=== PATIENT | female | born 1950 | race American Indian/Alaskan Native ===

== ENCOUNTER 2016-08-19 23:53 | Emergency (ER) | payer MEDICARE ==
[2016-08-20 00:35] VITALS: BP 157/72
[2016-08-20 01:28] LABS: Basophils % (Auto) 0.8 % (0.0-1.8); Eosinophils % (Auto) 1.6 % (0.0-4.3); Hemoglobin 11.6 gm/dl (10.1-14.3); Mean Corpuscular HGB Conc 32 % (30-34); Mean Corpuscular Hemoglobin 29 pg (28-32); Mean Corpuscular Volume 90 fl (79-97); Platelet Count 340 K/mm3 (140-440); Red Cell Distribution Width 13.8 % (13.2-15.2); White Blood Count 6.2 K/mm3 (4.5-11.0)
[2016-08-20 01:36] LABS: Blood Urea Nitrogen 10 mg/dL (7-17); Calcium 9.5 mg/dL (8.4-10.2); Carbon Dioxide 24 mmol/L (22-30); Chloride 99.6 mmol/L (98-107); Glucose 175 mg/dL (65-100); Potassium 3.8 mmol/L (3.6-5.0); Sodium 139 mmol/L (137-145)
[2016-08-20 01:49] LABS: Anion Gap 19 mmol/L
--- NOTE | 2016-08-21 08:50 | ED Elopement Review ---
ED Pt Elopement review - Results review Lab results: Laboratory Tests 08/20/16 08/20/16 08/20/16 00:48 00:48 00:48 WBC 6.2 RBC 4.00 Hgb 11.6 Hct 36.0 MCV 90 MCH 29 MCHC 32 RDW 13.8 Plt Count 340 Lymph % (Auto) 36.0 H [place] % (Auto) 9.6 H Eos % (Auto) 1.6 Baso % (Auto) 0.8 Lymph # 2.2 [place] # 0.6 Eos # 0.1 Baso # 0.0 Seg Neutrophils % 52.0 Seg Neutrophils # 3.2 Sodium 139 Potassium 3.8 Chloride 99.6 Carbon Dioxide 24 Anion Gap 19 BUN 10 Creatinine 1.0 Estimated GFR > 60 BUN/Creatinine Ratio 10.00 Glucose 175 H Calcium 9.5 Plasma/Serum Alcohol < 0.01 - Call Back decision Pt Call Back Decision: No action required
== END 2016-08-20 03:20 | disposition left against medical advice (07) ==
LOC: ED 23:53 → EEVIPCON 23:53 → ED 08-20 03:20
DX: Z00.8 Encounter for other general examination (principal); Z53.21 Procedure and treatment not carried out due to patient leaving prior to being seen by health care provider
CPT/HCPCS: 36415; 80048; 85025; G0480; 80320

== ENCOUNTER 2016-09-04 14:04 | Emergency (ER) | payer MEDICARE ==
[2016-09-04 14:39] VITALS: BP 133/83
[2016-09-04] MEDS ORDERED: MOTRIN PO ONE (22:51)
--- NOTE | 2016-09-04 22:55 | Emergency Department Report ---
HPI - General Chief Complaint: Laceration/Recheck/Suture Time Seen by Provider: 09/04/16 22:41 - HPI HPI: Patient here reports that she got bit by a dog 3 years ago and acid from the dog is still hurting her legs. She said her pain is 4 out of 10 [address] Denies any numbness or tingling. have multiple plastic bag and said she is looking for mcc. ED Past Medical Hx - Past Medical History Previous Medical History?: Yes Hx Hypertension: Yes Hx CVA: No Hx Heart Attack/AMI: Yes (NON-STEMI 2002) Hx Congestive Heart Failure: No Hx Diabetes: No Hx Deep Vein Thrombosis: No Hx Pulmonary Embolism: No Hx GERD: Yes Hx Liver Disease: No Hx Renal Disease: No Hx Sickle Cell Disease: No Hx Arthritis: No Hx Headaches / Migraines: No Hx Seizures: No Hx Kidney Stones: No Hx Psychiatric Treatment: Yes (BIPOLAR) Hx Asthma: No Hx COPD: No Hx Tuberculosis: No Hx Dementia: No Hx HIV: No Additional medical history: Patient's 2008 Non_STEMI was diagnosed by elevated cardiac enzymes, but had a normal stress test. - Surgical History Past Surgical History?: No Hx Coronary Stent: No Hx Open Heart Surgery: No Hx Pacemaker: No Hx Internal Defibrillator: No Hx Cholecystectomy: No Hx Appendectomy: Yes Hx Breast Surgery: No - Family History Family history: CAD/NE, hypertension - Social History Smoking Status: Current Every Day Smoker Substance Use Type: None - Medications Home Medications: Home Medications Medication Instructions Recorded Confirmed Last Taken Type ALBUTEROL Inhaler [Proair] 1 puff IH Q4H PRN #1 inha 03/29/16 06/21/16 06/16/16 Rx Ibuprofen [Motrin 600 MG tab] 600 mg PO Q8H PRN #20 tablet 03/29/16 06/21/1601/28 Rx QUEtiapine [SEROquel] 800 mg PO QDAY #120 tablet 04/26/16 06/21/16 06/18/16 Rx Hydrocortisone [Anucort-HC SUPPOS] 25 mg RC BID #14 supp.rect 06/21/16 Unknown Rx Lisinopril [Zestril TAB] 10 mg PO QDAY 06/21/16 06/21/16 06/20/16 History Nitrofurantoin [place]/M-Cryst 100 mg PO Q12HR #14 capsule 06/21/16 Unknown Rx [Macrobid CAP] Quetiapine Fumarate [SEROquel XR] 800 mg PO QDAY #14 tab.er.24h 06/21/16 Unknown Rx Mineral Oil/Molly,White [Eucerin 120 gm TP BID #1 jar 09/04/16 Unknown Rx (Nf)] ED Review of Systems ROS: Stated complaint: DOG BITE Other details as noted in HPI Comment: All other systems reviewed and negative Constitutional: denies: chills, fever ENT: denies: ear pain, throat pain, congestion Respiratory: no symptoms reported Cardiovascular: denies: chest pain, palpitations, edema, syncope Gastrointestinal: denies: abdominal pain, nausea, vomiting, diarrhea Musculoskeletal: arthralgia. denies: back pain, joint swelling Skin: denies: rash Neurological: denies: headache, weakness, numbness, paresthesias, confusion, abnormal gait, vertigo Physical Exam - Physical Exam Vital Signs: Vital Signs 09/04/16 14:36 Temperature 98 F Pulse Rate 78 Respiratory 18 Rate Blood Pressure 133/83 O2 Sat by Pulse 96 Oximetry General: This is a 65-year-old patient that is nontoxic in appearance. Physical Exam: Head: Normocephalic atraumatic Mouth: Moist, no pharyngeal exudate or erythema. Uvula is midline and oral airway is patent. No gingival enlargement or dental tenderness. No facial swelling. No peritonsillar abscesses. Neck: Supple, no C-spine tenderness, no tracheal deviation. Nontender to palpate. no adenopathy Ears: Bilateral TMs pearly senior.bilateral EAC without any redness swelling or drainage Eyes: Bilateral pupils equal and reactive to light, bilateral EOM intact. Bilateral sclera and conjunctiva without injection. Normal accommodation Nose: Mucosa moist, normal mucosa .maxillary and frontal sinus non-tender to palpate. Lungs:clear to auscultate bilaterally no rhonchi wheezes or rales. Normal work of breathing extremity; No CCE. +2 pulses. No neurovascular compromise. Full range of motion to all extremities. 5/5 strenght in extremities Cardiovascular: S1-S2, regular rate rhythm. No murmurs. Skin:Dry skin. Some flaking to legs. No wounds noted. Psych: Normal mood and behavior ED Course Vital Signs 09/04/16 14:36 Temperature 98 F Pulse Rate 78 Respiratory 18 Rate Blood Pressure 133/83 O2 Sat by Pulse 96 Oximetry - Reevaluation(s) Reevaluation #1: 09/04/16 22:55 She received Motrin 800 mg in emergency room for arthralgia. ED Medical Decision Making - Medical Decision Making ED course: here reporting that she had dogbite from 3 years ago to both legs. He is concerned that she has acid to bilateral leg from dog bite. I discussed the patient that she does not have any open wounds on her legs and she has very dry skin. She was given Motrin 800 mg in emergency room and I will prescribe her anymore and for dry skin. Prescription given for Eucerin cream Critical care attestation.: If time is entered above; I have spent that time in minutes in the direct care of this critically ill patient, excluding procedure time. ED Disposition Clinical Impression: Xerosis of skin Arthralgia Qualifiers: Joint pain location: unspecified Qualified Code(s): M25.50 - Pain in unspecified joint Disposition: DISCHARGED TO HOME OR SELFCARE Is pt being admited?: No Does the pt Need Aspirin: No Condition: Stable Instructions: Arthralgia (ED), Lanolin (On the skin) Prescriptions: Mineral Oil/Molly,White [Eucerin (Nf)] 120 gm TP BID #1 jar Referrals: PRIMARY CARE, [Primary Care Provider] - 2-3 Days
== END 2016-09-04 23:01 | disposition home or self-care (01) ==
LOC: ED 14:04
DX: M79.605 Pain in left leg (principal); M79.604 Pain in right leg; L85.3 Xerosis cutis; I10 Essential (primary) hypertension; I25.2 Old myocardial infarction; K21.9 Gastro-esophageal reflux disease without esophagitis; F31.9 Bipolar disorder, unspecified; F17.200 Nicotine dependence, unspecified, uncomplicated
CPT/HCPCS: 99282

== ENCOUNTER 2016-09-26 00:52 | Emergency (ER) | payer MEDICARE ==
[2016-09-26 01:36] VITALS: BP 110/74
== END 2016-09-26 01:30 | disposition left against medical advice (07) ==
LOC: ED 00:52
DX: R07.89 Other chest pain (principal); M54.9 Dorsalgia, unspecified; Z53.21 Procedure and treatment not carried out due to patient leaving prior to being seen by health care provider

== ENCOUNTER 2018-03-23 21:11 | Emergency (ER) | payer MEDICARE ==
[2018-03-23 21:42] VITALS: BP 133/68
== END 2018-03-23 22:00 | disposition left against medical advice (07) ==
LOC: ED 21:11
DX: Z59.0 Homelessness (principal); Z53.21 Procedure and treatment not carried out due to patient leaving prior to being seen by health care provider

== ENCOUNTER 2018-10-19 07:48 | Emergency (ER) | payer MEDICARE ==
[2018-10-19 08:12] VITALS: BP 145/82
[2018-10-19] MEDS ORDERED: ASPIRIN PO ONE (08:14)
--- NOTE | 2018-10-19 08:24 | Emergency Department Report ---
ED Chest Pain HPI - General Chief Complaint: Chest Pain Stated Complaint: CHEST PAIN Time Seen by Provider: 10/19/18 08:07 Source: EMS Mode of arrival: Ambulatory Limitations: No Limitations - History of Present Illness Initial Comments: 67-year-old female presents to ED with complaint of chest pain since last night. Patient states pain is located in the epigastric region, sharp in nature, states it "moves all around." Patient reports vomiting last night. Denies shortness of breath. Patient has history of cocaine abuse, states has not used recently. Reports tobacco use. MD Complaint: chest pain -: Last night Onset: during rest Pain Location: epigastric Pain Radiation: other ("all over") Severity: moderate Severity scale (0 -10): 10 Quality: sharp Consistency: intermittent Improves With: nothing Worsens With: nothing re: nausea, vomting. denies: diaphoresis, dyspnea Other Symptoms: denies: cough, fever, leg swelling - Related Data Previous Rx's Medication Instructions Recorded Last Taken Type ALBUTEROL Inhaler (OR & NICU) 1 puff IH Q4H PRN #1 inha 05/26/18 Unknown Rx [ProAir HFA Inhaler] Acetaminophen [Acetaminophen TAB] 650 mg PO Q4H PRN #15 tablet 05/26/18 Unknown Rx Lisinopril [Zestril TAB] 10 mg PO QDAY #30 tablet 05/26/18 Unknown Rx QUEtiapine [SEROquel] 400 mg PO BID 30 Days tablet 05/26/18 Unknown Rx Allergies Allergy/AdvReac Type Severity Reaction Status Date / Time No Known Allergies Allergy Verified 06/20/18 07:32 Heart Score - HEART Score History: Slightly suspicious EKG: Normal Age: > 65 Risk factors: 1-2 risk factors Troponin: < normal limit HEART Score: 3 ED Review of Systems ROS: Stated complaint: CHEST PAIN Other details as noted in HPI Comment: All other systems reviewed and negative Constitutional: denies: fever Respiratory: denies: cough, shortness of breath Cardiovascular: chest pain Gastrointestinal: nausea, vomiting ED Past Medical Hx - Past Medical History Hx Hypertension: Yes Hx CVA: No Hx Heart Attack/AMI: Yes (NON-STEMI 2002) Hx Congestive Heart Failure: No Hx Diabetes: No Hx Deep Vein Thrombosis: No Hx Pulmonary Embolism: No Hx GERD: Yes Hx Liver Disease: No Hx Renal Disease: No Hx Sickle Cell Disease: No Hx Arthritis: No Hx Headaches / Migraines: No Hx Seizures: No Hx Kidney Stones: No Hx Psychiatric Treatment: Yes (BIPOLAR) Hx Asthma: No Hx COPD: No Hx Tuberculosis: No Hx Dementia: No Hx HIV: No Additional medical history: Patient's 2008 Non_STEMI was diagnosed by elevated cardiac enzymes, but had a normal stress test. - Surgical History Hx Coronary Stent: No Hx Open Heart Surgery: No Hx Pacemaker: No Hx Internal Defibrillator: No Hx Cholecystectomy: No Hx Appendectomy: Yes Hx Breast Surgery: No - Social History Smoking Status: Current Some Day Smoker Substance Use Type: Cocaine - Medications Home Medications: Home Medications Medication Instructions Recorded Confirmed Last Taken Type ALBUTEROL Inhaler (OR & NICU) 1 puff IH Q4H PRN #1 inha 05/26/18 Unknown Rx [ProAir HFA Inhaler] Acetaminophen [Acetaminophen TAB] 650 mg PO Q4H PRN #15 tablet 05/26/18 Unknown Rx Lisinopril [Zestril TAB] 10 mg PO QDAY #30 tablet 05/26/18 Unknown Rx QUEtiapine [SEROquel] 400 mg PO BID 30 Days tablet 05/26/18 Unknown Rx ED Physical Exam - General Limitations: No Limitations General appearance: alert, in no apparent distress - Head Head exam: Present: atraumatic, normocephalic - Eye Eye exam: Present: normal appearance - ENT ENT exam: Present: mucous membranes moist - Neck Neck exam: Present: normal inspection - Respiratory Respiratory exam: Present: normal lung sounds bilaterally. Absent: respiratory distress - Cardiovascular Cardiovascular Exam: Present: regular rate, normal rhythm - GI/Abdominal GI/Abdominal exam: Present: soft. Absent: distended, tenderness - Extremities Exam Extremities exam: Absent: pedal edema, calf tenderness - Neurological Exam Neurological exam: Present: alert, oriented X3 - Psychiatric Psychiatric exam: Present: normal affect, normal mood - Skin Skin exam: Present: warm, dry, intact, normal color ED Course Vital Signs 10/19/18 10/19/18 08:11 08:12 Temperature 97.6 F 97.6 F Pulse Rate 74 74 Respiratory 16 16 Rate Blood Pressure 145/82 Blood Pressure 145/82 [Right] O2 Sat by Pulse 100 100 Oximetry ABRAHAM score - Abraham Score Age > 65: (0) No Aspirin use within the Past 7 Days: (0) No 3 or more CAD Risk Factors: (1) Yes 2 or more Angina events in past 24 hrs: (1) Yes Known CAD with more than 50% Stenosis: (0) No Elevated Cardiac Markers: (0) No ST Deviation Greater than 0.5mm: (0) No ABRAHAM Score: 2 ED Medical Decision Making - EKG Data -: EKG Interpreted by Me EKG shows normal: sinus rhythm, axis, intervals, QRS complexes, ST-T waves Rate: normal - EKG Data Interpretation: no acute changes - Radiology Data Radiology results: report reviewed, image reviewed - Medical Decision Making 67-year-old female presents to ED with report of chest pain since last night. EKG normal, chest x-ray normal. Vital signs are unremarkable. Patient is in no acute distress, laying in the stretcher asleep. Patient refusing labs. Informed patient needs to recheck blood work in order to evaluate her chest pain. Patient had a normal stress test in May 2018. Patient states she would rather go across the street to the doctor's office. Patient informed of risks of leaving AMA. Return precautions given. Pt left AMA. - Differential Diagnosis pancreatitis, gastritis, ACS Critical care attestation.: If time is entered above; I have spent that time in minutes in the direct care of this critically ill patient, excluding procedure time. ED Disposition Clinical Impression: Chest pain Disposition: LEFT AGAINST MED ADVICE Is pt being admited?: No Condition: Stable Instructions: Chest Pain (ED) Referrals: [facility] [Provider Group] - 3-5 Days Time of Disposition: 09:07
--- NOTE | 2018-10-19 08:48 | XRay Report ---
AP CHEST: HISTORY: chest pain Compared to 05/25/18. AP view of the chest demonstrates a normal mediastinal and cardiac contour with clear lungs and normal bony and soft tissue structures. IMPRESSION: No acute cardiopulmonary process identified.
== END 2018-10-19 09:10 | disposition left against medical advice (07) ==
LOC: ED 07:48
DX: R07.89 Other chest pain (principal); R11.10 Vomiting, unspecified; I10 Essential (primary) hypertension; F14.90 Cocaine use, unspecified, uncomplicated; I25.2 Old myocardial infarction; K21.9 Gastro-esophageal reflux disease without esophagitis; F17.200 Nicotine dependence, unspecified, uncomplicated; Z90.49 Acquired absence of other specified parts of digestive tract
CPT/HCPCS: 71045; 93005; 93010; 99284

== ENCOUNTER 2019-02-05 01:19 | Emergency (ER) | payer MEDICARE ==
[2019-02-05] MEDS ORDERED: ASPIRIN PO ONE (01:27)
[2019-02-05 02:16] LABS: Basophils # (Auto) 0.1 K/mm3 (0.0-0.1); Basophils % (Auto) 0.7 % (0.0-1.8); Eosinophils # (Auto) 0.1 K/mm3 (0.0-0.4); Eosinophils % (Auto) 0.8 % (0.0-4.3); Hematocrit 35.3 % (30.3-42.9); Lymphocytes # (Auto) 1.9 K/mm3 (1.2-5.4); Lymphocytes % (Auto) 25.8 % (13.4-35.0); Mean Corpuscular HGB Conc 34 % (30-34); Mean Corpuscular Volume 90 fl (79-97); Monocytes # (Auto) 0.8 K/mm3 (0.0-0.8); Platelet Count 358 K/mm3 (140-440); Red Blood Count 3.94 M/mm3 (3.65-5.03); Red Cell Distribution Width 14.8 % (13.2-15.2)
--- NOTE | 2019-02-05 02:25 | XRay Report ---
PROCEDURE: XR CHEST 1V AP TECHNIQUE: Chest radiograph single view. HISTORY: Chest Pain COMPARISONS: None . FINDINGS: Heart: Normal. Mediastinum/Vessels: Normal. Lungs/Pleural space: Normal. Bony thorax: No acute osseous abnormality. Life support devices: None. IMPRESSION: No acute cardiopulmonary abnormality. This document is electronically signed by Alix Salazar DO., February 05 2019 02:22:37 AM ET
[2019-02-05 02:37] LABS: BUN/Creatinine Ratio 16; Blood Urea Nitrogen 26 mg/dL (7-17); Calcium 9.4 mg/dL (8.4-10.2); Hemolysis Index 2
[2019-02-05] MEDS ORDERED: ALUM-MAG HYDROX-SIMETH 200-200-20MG/5ML PO ONE (02:59)
[2019-02-05] MEDS ORDERED: LIDOCAINE VISCOUS 2% PO ONE (02:59)
--- NOTE | 2019-02-05 03:11 | Emergency Department Report ---
ED Chest Pain HPI - General Chief Complaint: Chest Pain Stated Complaint: CHEST PAIN Time Seen by Provider: 02/05/19 02:33 Source: patient Mode of arrival: Ambulatory Limitations: No Limitations - History of Present Illness Initial Comments: 68-year-old female with history of GERD, bipolar disorder, cocaine abuse presents to ED with complaint of chest pain. States pain is substernal, comes and goes. Feels like burning in her chest. Reports nausea. Patient denies shortness of breath. MD Complaint: chest pain -: days(s) (3) Onset: during rest Pain Location: substernal Pain Radiation: none Severity: mild Quality: other (burning) Consistency: intermittent Improves With: nothing Worsens With: nothing re: nausea. denies: vomting, dyspnea Other Symptoms: denies: fever, leg swelling - Related Data Previous Rx's Medication Instructions Recorded Last Taken Type ALBUTEROL Inhaler (OR & NICU) 1 puff IH Q4H PRN #1 inha 05/26/18 Unknown Rx [ProAir HFA Inhaler] Acetaminophen [Acetaminophen TAB] 650 mg PO Q4H PRN #15 tablet 05/26/18 Unknown Rx Lisinopril [Zestril TAB] 10 mg PO QDAY #30 tablet 05/26/18 Unknown Rx QUEtiapine [SEROquel] 400 mg PO BID 30 Days tablet 05/26/18 Unknown Rx Allergies Allergy/AdvReac Type Severity Reaction Status Date / Time No Known Allergies Allergy Verified 06/20/18 07:32 Heart Score - HEART Score History: Slightly suspicious EKG: Normal Age: > 65 Risk factors: No known risk factors Troponin: < normal limit HEART Score: 2 ED Review of Systems ROS: Stated complaint: CHEST PAIN Other details as noted in HPI Comment: All other systems reviewed and negative Constitutional: denies: chills, fever Respiratory: denies: shortness of breath Cardiovascular: chest pain Gastrointestinal: nausea. denies: vomiting Musculoskeletal: other (denies leg pain or swelling) ED Past Medical Hx - Past Medical History Previous Medical History?: Yes Hx Hypertension: Yes Hx CVA: No Hx Heart Attack/AMI: Yes (NON-STEMI 2002) Hx Congestive Heart Failure: No Hx Diabetes: No Hx Deep Vein Thrombosis: No Hx Pulmonary Embolism: No Hx GERD: Yes Hx Liver Disease: No Hx Renal Disease: No Hx Sickle Cell Disease: No Hx Arthritis: No Hx Headaches / Migraines: No Hx Seizures: No Hx Kidney Stones: No Hx Psychiatric Treatment: Yes (BIPOLAR) Hx Asthma: No Hx COPD: No Hx Tuberculosis: No Hx Dementia: No Hx HIV: No Additional medical history: Patient's 2008 Non_STEMI was diagnosed by elevated cardiac enzymes, but had a normal stress test. - Surgical History Past Surgical History?: Yes Hx Coronary Stent: No Hx Open Heart Surgery: No Hx Pacemaker: No Hx Internal Defibrillator: No Hx Cholecystectomy: No Hx Appendectomy: Yes Hx Breast Surgery: No - Social History Smoking Status: Never Smoker Substance Use Type: None - Medications Home Medications: Home Medications Medication Instructions Recorded Confirmed Last Taken Type ALBUTEROL Inhaler (OR & NICU) 1 puff IH Q4H PRN #1 inha 05/26/18 Unknown Rx [ProAir HFA Inhaler] Acetaminophen [Acetaminophen TAB] 650 mg PO Q4H PRN #15 tablet 05/26/18 Unknown Rx Lisinopril [Zestril TAB] 10 mg PO QDAY #30 tablet 05/26/18 Unknown Rx QUEtiapine [SEROquel] 400 mg PO BID 30 Days tablet 05/26/18 Unknown Rx ED Physical Exam - General Limitations: No Limitations General appearance: alert, in no apparent distress - Head Head exam: Present: atraumatic, normocephalic - Eye Eye exam: Present: normal appearance - ENT ENT exam: Present: mucous membranes moist - Neck Neck exam: Present: normal inspection - Respiratory Respiratory exam: Present: normal lung sounds bilaterally. Absent: respiratory distress - Cardiovascular Cardiovascular Exam: Present: regular rate, normal rhythm - GI/Abdominal GI/Abdominal exam: Present: soft. Absent: distended, tenderness - Extremities Exam Extremities exam: Absent: pedal edema, calf tenderness - Neurological Exam Neurological exam: Present: alert, oriented X3 - Psychiatric Psychiatric exam: Present: normal affect, normal mood, other (pt has disorganized thoughts, responding to internal stimuli). Absent: homicidal ideation, suicidal ideation - Skin Skin exam: Present: warm, dry, intact, normal color ED Course Vital Signs 02/05/19 02/05/19 02/05/19 02:42 02:46 03:00 Pulse Rate 85 84 88 Respiratory 23 18 16 Rate Blood Pressure 173/79 173/78 Blood Pressure 173/79 [Right] O2 Sat by Pulse 100 99 100 Oximetry 02/05/19 02/05/19 02/05/19 03:15 03:31 03:45 Pulse Rate 89 86 84 Respiratory 16 15 20 Rate Blood Pressure 173/79 173/79 173/78 Blood Pressure [Right] O2 Sat by Pulse 99 98 100 Oximetry 02/05/19 02/05/19 02/05/19 04:00 04:15 04:31 Pulse Rate 83 84 85 Respiratory 18 18 18 Rate Blood Pressure 199/76 173/78 173/78 Blood Pressure [Right] O2 Sat by Pulse 98 98 Oximetry 02/05/19 04:45 Pulse Rate Respiratory Rate Blood Pressure 173/78 Blood Pressure [Right] O2 Sat by Pulse 98 Oximetry ABRAHAM score - Abraham Score Age > 65: (0) No Aspirin use within the Past 7 Days: (0) No 3 or more CAD Risk Factors: (1) Yes 2 or more Angina events in past 24 hrs: (1) Yes Known CAD with more than 50% Stenosis: (0) No Elevated Cardiac Markers: (0) No ST Deviation Greater than 0.5mm: (0) No ABRAHAM Score: 2 ED Medical Decision Making - Lab Data Result diagrams: 02/05/19 01:52 02/05/19 01:52 - EKG Data -: EKG Interpreted by Ut EKG shows normal: sinus rhythm, axis, intervals, QRS complexes, ST-T waves Rate: normal - EKG Data Interpretation: no acute changes - Radiology Data Radiology results: report reviewed, image reviewed - Medical Decision Making 68 yo F presents to ED with complaint of chest pain. Reported burning in chest, hx of GERD. EKG and troponin normal. Pt had normal stress test last May. Upon entering the room, pt is apparently responding to internal stimuli. Difficult to keep pt on track with answering questions, thoughts are disorganized. Denies SI, HI. Has history of psychosis and bipolar disorder. Patient is medically clear. It does not seem that her chest pain, which has now resolved, is due to ACS. CXR is normal. Pt is medically clear for mental health evaluation. Will dispo per psych. - Differential Diagnosis ACS, GERD, pneumonia, bipolar Critical care attestation.: If time is entered above; I have spent that time in minutes in the direct care of this critically ill patient, excluding procedure time. ED Disposition Clinical Impression: Atypical chest pain, Bipolar disorder Disposition: Z-07 ELOPED Is pt being admited?: No Condition: Stable Instructions: Chest Pain (ED) Referrals: PRIMARY CARE, [Primary Care Provider] - 3-5 Days
[2019-02-05 05:09] VITALS: BP 173/78
[2019-02-05] MEDS ORDERED: HALDOL IM ONE (08:10)
[2019-02-05] MEDS ORDERED: HALDOL ONE (08:12)
== END 2019-02-05 08:40 | disposition left against medical advice (07) ==
LOC: ED 01:19 → EEVIPCON 01:19 → ED 08:40
DX: R07.89 Other chest pain (principal); F31.9 Bipolar disorder, unspecified; I10 Essential (primary) hypertension; I25.2 Old myocardial infarction; K21.9 Gastro-esophageal reflux disease without esophagitis; Z90.49 Acquired absence of other specified parts of digestive tract; Z79.899 Other long term (current) drug therapy
CPT/HCPCS: 36415; 71045; 80048; 84484; 85025; 93005; 93010; 96372; 99284; G0480; J1630; 80320

== ENCOUNTER 2019-05-24 01:46 | Emergency (ER) | payer MEDICARE ==
[2019-05-24] MEDS ORDERED: ACETAMINOPHEN 500 MG TAB PO ONE (03:16)
--- NOTE | 2019-05-24 03:44 | Emergency Department Report ---
ED Back Pain/Injury HPI - General Chief Complaint: Extremity Injury, Lower Stated Complaint: MED REFILL,FOOT AND BODY PAIN Source: patient Limitations: No Limitations - History of Present Illness Initial Comments: Patient is a 68-year-old -[place] female with a history of chronic depression and anxiety, schizophrenia who presents to the ED with complaint of acute onset persistent low back pain for the last 1 month because of persistent walking on the street. Patient states that she is homeless and is on her feet most of the time walking around. Patient denies fall, headache, chest pain, s hortness of breath, dysuria, urinary frequency and urgency, abdominal pain, fever, chills, numbness and tingling or weakness or lower extremities bilaterally, dizziness, cough, or headache. MD Complaint: back pain, other (Bilateral feet pain) -: Gradual, month(s) (1) Similar Symptoms Previously: Yes Place: street Radiation: none Severity: moderate Severity scale (0 -10): 5 Quality: sharp, aching Consistency: constant Improves With: none Worsens With: none Context: turning/twisting Associated Symptoms: denies other symptoms. denies: confusion, weakness, chest pain, numbness, difficulty walking, cough, difficulty urinating, diaphoresis, incontinence, fever/chills, constipation, headaches, abdominal pain, nausea/vomiting, seizure, shortness of breath, other - Related Data Previous Rx's Medication Instructions Recorded Last Taken Type ALBUTEROL Inhaler (OR & NICU) 1 puff IH Q4H PRN #1 inha 05/26/18 Unknown Rx [ProAir HFA Inhaler] Acetaminophen [Acetaminophen TAB] 650 mg PO Q4H PRN #15 tablet 05/26/18 Unknown Rx Lisinopril [Zestril TAB] 10 mg PO QDAY #30 tablet 05/26/18 Unknown Rx QUEtiapine [SEROquel] 400 mg PO BID 30 Days tablet 05/26/18 Unknown Rx Allergies Allergy/AdvReac Type Severity Reaction Status Date / Time No Known Allergies Allergy Verified 06/20/18 07:32 ED Review of Systems ROS: Stated complaint: MED REFILL,FOOT AND BODY PAIN Other details as noted in HPI Constitutional: denies: chills, fever Eyes: denies: eye pain, eye discharge, vision change ENT: denies: ear pain, throat pain Respiratory: denies: cough, shortness of breath, wheezing Cardiovascular: denies: chest pain, palpitations Endocrine: no symptoms reported Gastrointestinal: denies: abdominal pain, nausea, diarrhea Genitourinary: denies: urgency, dysuria, discharge Musculoskeletal: back pain, arthralgia, myalgia. denies: joint swelling Skin: denies: rash, lesions Neurological: denies: headache, weakness, paresthesias Psychiatric: denies: anxiety, depression Hematological/Lymphatic: denies: easy bleeding, easy bruising ED Past Medical Hx - Past Medical History Hx Hypertension: Yes Hx CVA: No Hx Heart Attack/AMI: Yes (NON-STEMI 2002) Hx Congestive Heart Failure: No Hx Diabetes: No Hx Deep Vein Thrombosis: No Hx Pulmonary Embolism: No Hx GERD: Yes Hx Liver Disease: No Hx Renal Disease: No Hx Sickle Cell Disease: No Hx Arthritis: No Hx Headaches / Migraines: No Hx Seizures: No Hx Kidney Stones: No Hx Psychiatric Treatment: Yes (BIPOLAR) Hx Asthma: No Hx COPD: No Hx Tuberculosis: No Hx Dementia: No Hx HIV: No Additional medical history: Patient's 2008 Non_STEMI was diagnosed by elevated cardiac enzymes, but had a normal stress test. - Surgical History Hx Coronary Stent: No Hx Open Heart Surgery: No Hx Pacemaker: No Hx Internal Defibrillator: No Hx Cholecystectomy: No Hx Appendectomy: Yes Hx Breast Surgery: No - Social History Smoking Status: Current Every Day Smoker Substance Use Type: Alcohol - Medications Home Medications: Home Medications Medication Instructions Recorded Confirmed Last Taken Type ALBUTEROL Inhaler (OR & NICU) 1 puff IH Q4H PRN #1 inha 05/26/18 Unknown Rx [ProAir HFA Inhaler] Acetaminophen [Acetaminophen TAB] 650 mg PO Q4H PRN #15 tablet 05/26/18 Unknown Rx Lisinopril [Zestril TAB] 10 mg PO QDAY #30 tablet 05/26/18 Unknown Rx QUEtiapine [SEROquel] 400 mg PO BID 30 Days tablet 05/26/18 Unknown Rx ED Physical Exam - General Limitations: No Limitations General appearance: alert, in no apparent distress - Head Head exam: Present: atraumatic, normocephalic - Eye Eye exam: Present: normal appearance, PERRL, EOMI Pupils: Present: normal accommodation - ENT ENT exam: Present: normal exam, normal orophraynx, mucous membranes moist, TM's normal bilaterally, normal external ear exam - Neck Neck exam: Present: normal inspection, full ROM - Respiratory Respiratory exam: Present: normal lung sounds bilaterally. Absent: respiratory distress, wheezes, rales, rhonchi, chest wall tenderness, accessory muscle use, decreased breath sounds - Cardiovascular Cardiovascular Exam: Present: regular rate, normal rhythm, normal heart sounds. Absent: systolic murmur, diastolic murmur, rubs, gallop - GI/Abdominal GI/Abdominal exam: Present: soft, normal bowel sounds. Absent: tenderness, hyperactive bowel sounds - Extremities Exam Extremities exam: Present: normal inspection, full ROM, normal capillary refill - Back Exam Back exam: Present: normal inspection, full ROM, tenderness (palpable mild lumbosacral musculoskeletal tenderness), muscle spasm, paraspinal tenderness - Neurological Exam Neurological exam: Present: alert, oriented X3, CN II-XII intact, normal gait, reflexes normal - Psychiatric Psychiatric exam: Present: normal affect, normal mood, anxious. Absent: manic, homicidal ideation, suicidal ideation - Skin Skin exam: Present: warm, dry, intact, normal color. Absent: rash ED Course Vital Signs 05/24/19 01:47 Temperature 97.4 F L Pulse Rate 63 Respiratory 18 Rate Blood Pressure 132/74 O2 Sat by Pulse 99 Oximetry - Reevaluation(s) Reevaluation #1: 05/24/19 03:45 This is a 68-year-old homeless -[place] female with a history of schizophrenia, anxiety and depression who presented to the ED with low back pain. In the ED, patient is alert and oriented 3 and is not in distress. Patient already has a prescription for Tylenol Extra Strength to be taken 2 tablets (1 g) every 6-8 hours as needed for pain, obtained from another hospital during her previous hospital visit. Patient is not homicidal or suicidal and is not hearing any voices at this time. Patient was treated for pain in the ED and discharged home and advised to follow-up with her psychiatrist and primary care physician as needed. 05/24/19 03:53 ED Medical Decision Making - Medical Decision Making This is a 68-year-old homeless -[place] female with a history of schizophrenia, anxiety and depression who presented to the ED with low back pain. In the ED, patient is alert and oriented 3 and is not in distress. Patient already has a prescription for Tylenol Extra Strength to be taken 2 tablets (1 g) every 6-8 hours as needed for pain, obtained from another hospital during her previous hospital visit. Patient is not homicidal or suicidal and is not hearing any voices at this time. Patient was treated for pain in the ED and discharged home and advised to follow-up with her psychiatrist and primary care physician as needed. - Differential Diagnosis muscle spasm; acute low back pain Critical care attestation.: If time is entered above; I have spent that time in minutes in the direct care of this critically ill patient, excluding procedure time. ED Disposition Clinical Impression: Spasm of muscle of lower back Acute low back pain Qualifiers: Back pain laterality: unspecified Sciatica presence: without sciatica Qualified Code(s): M54.5 - Low back pain Disposition: TO HOME OR SELFCARE Is pt being admited?: No Does the pt Need Aspirin: No Condition: Stable Instructions: Muscle Spasm (ED), Back Pain (ED) Additional Instructions: Take the previously prescribed medications. Follow up with your primary care physician in 7-10 days for reevaluation. Return to the ED immediately if symptoms get worse. Referrals: PRIMARY CARE [Primary Care Provider] - 3-5 Days Time of Disposition: 03:44 Print Language: GREENLANDIC
[2019-05-24 04:13] VITALS: BP 128/72
== END 2019-05-24 04:15 | disposition home or self-care (01) ==
LOC: ED 01:46
DX: M62.830 Muscle spasm of back (principal); M54.5 Low back pain; I10 Essential (primary) hypertension; I25.2 Old myocardial infarction; K21.9 Gastro-esophageal reflux disease without esophagitis; F31.9 Bipolar disorder, unspecified; F17.200 Nicotine dependence, unspecified, uncomplicated
CPT/HCPCS: 99282

== ENCOUNTER 2019-05-24 14:42 | Emergency (ER) | payer MEDICARE ==
--- NOTE | 2019-05-24 15:33 | Event Note ---
ED Screening Note Date of service: 05/24/19 Time: 15:30 ED Screening Note: 68 y/o female comes in reporting she want a refill her seroquel. Patient reports that she was seen at [facility] 3 days ago. This initial assessment/diagnostic orders/clinical plan/treatment(s) is/are subject to change based on patients health status, clinical progression and re- assessment by fellow clinical providers in the ED. Further treatment and workup at subsequent clinical providers discretion. Patient/guardian urged not to elope from the ED as their condition may be serious if not clinically assessed and managed. Initial orders include:
[2019-05-24 15:34] VITALS: BP 128/74
--- NOTE | 2019-05-24 15:47 | Emergency Department Report ---
ED Psych HPI - General Chief Complaint: Medical Clearance Stated Complaint: MEDICATION REFILL Time Seen by Provider: 05/24/19 15:30 Source: patient Mode of arrival: Ambulatory Limitations: No Limitations - History of Present Illness Initial Comments: Mrs. La is a 68-year-old female with history of bipolar disorder who requests refill of Seroquel. Her dose is 800 mg at nighttime. Her personal psychiatrist recently moved from [facility] to [place]. She is unable to get transportation to the area. She denies suicidal homicidal ideation. Denies hallucinations. She has no other concerns. MD Complaint: other (requests medication refill.) Associated Psychiatric Symptoms: none History of same: Yes Improves With: none Worsens With: none Context: other (needs medication refill) - Related Data Previous Rx's Medication Instructions Recorded Last Taken Type ALBUTEROL Inhaler (OR & NICU) 1 puff IH Q4H PRN #1 inha 05/26/18 Unknown Rx [ProAir HFA Inhaler] Acetaminophen [Acetaminophen TAB] 650 mg PO Q4H PRN #15 tablet 05/26/18 Unknown Rx Lisinopril [Zestril TAB] 10 mg PO QDAY #30 tablet 05/26/18 Unknown Rx QUEtiapine [SEROquel] 400 mg PO BID 30 Days tablet 05/26/18 Unknown Rx Quetiapine Fumarate [SEROquel] 400 mg PO BID 30 Days #60 tablet 05/24/19 Unknown Rx Allergies Allergy/AdvReac Type Severity Reaction Status Date / Time No Known Allergies Allergy Verified 06/20/18 07:32 ED Review of Systems ROS: Stated complaint: MEDICATION REFILL Other details as noted in HPI Constitutional: denies: fever, malaise Psychiatric: denies: anxiety, depression, auditory hallucinations, visual hallucinations, homicidal thoughts, suicidal thoughts ED Past Medical Hx - Past Medical History Hx Hypertension: Yes Hx CVA: No Hx Heart Attack/AMI: Yes (NON-STEMI 2002) Hx Congestive Heart Failure: No Hx Diabetes: No Hx Deep Vein Thrombosis: No Hx Pulmonary Embolism: No Hx GERD: Yes Hx Liver Disease: No Hx Renal Disease: No Hx Sickle Cell Disease: No Hx Arthritis: No Hx Headaches / Migraines: No Hx Seizures: No Hx Kidney Stones: No Hx Psychiatric Treatment: Yes (BIPOLAR) Hx Asthma: No Hx COPD: No Hx Tuberculosis: No Hx Dementia: No Hx HIV: No Additional medical history: Patient's 2008 Non_STEMI was diagnosed by elevated cardiac enzymes, but had a normal stress test. - Surgical History Hx Coronary Stent: No Hx Open Heart Surgery: No Hx Pacemaker: No Hx Internal Defibrillator: No Hx Cholecystectomy: No Hx Appendectomy: Yes Hx Breast Surgery: No - Social History Smoking Status: Current Every Day Smoker Substance Use Type: None - Medications Home Medications: Home Medications Medication Instructions Recorded Confirmed Last Taken Type ALBUTEROL Inhaler (OR & NICU) 1 puff IH Q4H PRN #1 inha 05/26/18 Unknown Rx [ProAir HFA Inhaler] Acetaminophen [Acetaminophen TAB] 650 mg PO Q4H PRN #15 tablet 05/26/18 Unknown Rx Lisinopril [Zestril TAB] 10 mg PO QDAY #30 tablet 05/26/18 Unknown Rx QUEtiapine [SEROquel] 400 mg PO BID 30 Days tablet 05/26/18 Unknown Rx Quetiapine Fumarate [SEROquel] 400 mg PO BID 30 Days #60 tablet 05/24/19 Unknown Rx ED Physical Exam - General Limitations: No Limitations General appearance: alert, in no apparent distress - Head Head exam: Present: atraumatic, normocephalic - Eye Eye exam: Absent: scleral icterus, conjunctival injection - ENT ENT exam: Present: mucous membranes moist - Neck Neck exam: Present: normal inspection - Respiratory Respiratory exam: Absent: respiratory distress - Neurological Exam Neurological exam: Present: alert, oriented X3 - Psychiatric Psychiatric exam: Present: normal affect, normal mood - Skin Skin exam: Present: warm, dry, intact, normal color ED Course Vital Signs 05/24/19 15:30 Temperature 97.7 F Pulse Rate 74 Respiratory 16 Rate Blood Pressure 128/74 O2 Sat by Pulse 100 Oximetry ED Medical Decision Making - Medical Decision Making I prescribed 30 day prescription for Seroquel home dose. Critical care attestation.: If time is entered above; I have spent that time in minutes in the direct care of this critically ill patient, excluding procedure time. ED Disposition Clinical Impression: Medication refill Disposition: DC-01 TO HOME OR SELFCARE Is pt being admited?: No Does the pt Need Aspirin: No Condition: Stable Prescriptions: Quetiapine Fumarate [SEROquel] 400 mg PO BID 30 Days #60 tablet Referrals: [facility] [Outside] - 3-5 Days
== END 2019-05-24 15:52 | disposition home or self-care (01) ==
LOC: ED 14:42
DX: F20.9 Schizophrenia, unspecified (principal); Z76.0 Encounter for issue of repeat prescription; I10 Essential (primary) hypertension; I25.2 Old myocardial infarction; F31.9 Bipolar disorder, unspecified; F17.200 Nicotine dependence, unspecified, uncomplicated
CPT/HCPCS: 99282

== ENCOUNTER 2019-05-26 15:13 | Emergency (ER) | payer MEDICARE ==
[2019-05-26] MEDS ORDERED: ASPIRIN PO ONE (15:43)
--- NOTE | 2019-05-26 16:38 | XRay Report ---
CHEST 2 VIEWS INDICATION / CLINICAL INFORMATION: Chest Pain. COMPARISON: 02/05/19 FINDINGS: SUPPORT DEVICES: None. HEART / MEDIASTINUM: No significant abnormality. LUNGS / PLEURA: No significant pulmonary or pleural abnormality. No pneumothorax. ADDITIONAL FINDINGS: No significant additional findings. IMPRESSION: 1. No acute findings. No change. Signer Name: Onofre Rios MD Signed: 05/26/2019 4:33 PM Workstation Name: [id number]
[2019-05-26 16:56] LABS: BUN/Creatinine Ratio 16; Blood Urea Nitrogen 18 mg/dL (7-17); Hemolysis Index 5
--- NOTE | 2019-05-26 17:30 | Event Note ---
ED Screening Note Date of service: 05/26/19 Time: 17:27 ED Screening Note: Pt complains of intermittent chest pain x yesterday. Pain is substernal and a 7/10 in severity. Denies Fhx of heart disease. Also complains of bilateral leg pain. Mild swelling noted on exam This initial assessment/diagnostic orders/clinical plan/treatment(s) is/are subject to change based on patients health status, clinical progression and re- assessment by fellow clinical providers in the ED. Further treatment and workup at subsequent clinical providers discretion. Patient/guardian urged not to elope from the ED as their condition may be serious if not clinically assessed and managed. Initial orders include: CBC BMP CXR Trop Aspirin US
[2019-05-26 17:31] LABS: Basophils % (Auto) 0.4 % (0.0-1.8); Eosinophils # (Auto) 0.1 K/mm3 (0.0-0.4); Eosinophils % (Auto) 0.9 % (0.0-4.3); Hematocrit 38.4 % (30.3-42.9); Hemoglobin 12.8 gm/dl (10.1-14.3); Lymphocytes # (Auto) 1.2 K/mm3 (1.2-5.4); Lymphocytes % (Auto) 14.9 % (13.4-35.0); Mean Corpuscular HGB Conc 33 % (30-34); Mean Corpuscular Volume 89 fl (79-97); Monocytes # (Auto) 0.4 K/mm3 (0.0-0.8); Monocytes % (Auto) 5.2 % (0.0-7.3); Platelet Count 377 K/mm3 (140-440); Red Blood Count 4.31 M/mm3 (3.65-5.03); Red Cell Distribution Width 14.8 % (13.2-15.2)
--- NOTE | 2019-05-26 18:01 | Emergency Department Report ---
<DORY LOZANO - Last Filed: 05/27/19 15:26> ED Chest Pain HPI - General Chief Complaint: Chest Pain Stated Complaint: HEART BEAT FAST/DIZZY Time Seen by Provider: 05/26/19 17:09 - Related Data Previous Rx's Medication Instructions Recorded Last Taken Type ALBUTEROL Inhaler (OR & NICU) 1 puff IH Q4H PRN #1 inha 05/26/18 Unknown Rx [ProAir HFA Inhaler] Acetaminophen [Acetaminophen TAB] 650 mg PO Q4H PRN #15 tablet 05/26/18 Unknown Rx Lisinopril [Zestril TAB] 10 mg PO QDAY #30 tablet 05/26/18 Unknown Rx QUEtiapine [SEROquel] 400 mg PO BID 30 Days tablet 05/26/18 Unknown Rx Quetiapine Fumarate [SEROquel] 400 mg PO BID 30 Days #60 tablet 05/24/19 Unknown Rx Allergies Allergy/AdvReac Type Severity Reaction Status Date / Time No Known Allergies Allergy Verified 06/20/18 07:32 ED Past Medical Hx - Medications Home Medications: Home Medications Medication Instructions Recorded Confirmed Last Taken Type ALBUTEROL Inhaler (OR & NICU) 1 puff IH Q4H PRN #1 inha 05/26/18 05/28/19 Unknown Rx [ProAir HFA Inhaler] Acetaminophen [Acetaminophen TAB] 650 mg PO Q4H PRN #15 tablet 05/26/18 05/28/19 Unknown Rx Lisinopril [Zestril TAB] 10 mg PO QDAY #30 tablet 05/26/18 05/28/19 Unknown Rx QUEtiapine [SEROquel] 400 mg PO BID 30 Days tablet 05/26/18 05/28/19 Unknown Rx Quetiapine Fumarate [SEROquel] 400 mg PO BID 30 Days #60 tablet 05/24/19 05/28/19 Unknown Rx ED Medical Decision Making - Lab Data Result diagrams: 05/26/19 16:17 05/26/19 16:17 - Medical Decision Making She was seen by social work and was given some resources for shelters and a bus token. Patient is discharged home ED Disposition Clinical Impression: Chest pain, Homeless, Atypical chest pain Disposition: DC- TO HOME OR SELFCARE Is pt being admited?: No Does the pt Need Aspirin: No Condition: Stable Instructions: Chest Pain (ED) Referrals: [facility] [Referring] - 3-5 Days Time of Disposition: 15:30 <ROLAND LUEVANO - Last Filed: 05/28/19 08:07> ED Chest Pain HPI - General Source: patient Mode of arrival: Ambulatory Limitations: No Limitations - History of Present Illness Initial Comments: Patient is 68 years old female with history of hypertension, coronary artery disease and bipolar disorder. Patient is also homeless. Patient presented to the ER complaining of substernal chest pain started one week ago. Patient described her pain as tightness with no radiation. Patient denied any shortness of breath, fever, chills or cough. Patient also denied any suicidal or homicidal ideation. No visual or auditory hallucination. MD Complaint: chest pain Onset: during rest Pain Location: substernal Pain Radiation: none Severity scale (0 -10): 8 Quality: tightness Consistency: intermittent Heart Score - HEART Score History: Moderately suspicious EKG: Non-specific Age: > 65 Risk factors: 1-2 risk factors Troponin: < normal limit HEART Score: 5 - Critical Actions Critical Actions: 4-6 pts:12-16.6% risk of adverse cardiac event. Should be admitted ED Review of Systems ROS: Stated complaint: HEART BEAT FAST/DIZZY Other details as noted in HPI Comment: All other systems reviewed and negative Constitutional: denies: chills, fever Respiratory: denies: cough, shortness of breath, SOB with exertion Cardiovascular: chest pain. denies: palpitations, dyspnea on exertion Gastrointestinal: denies: abdominal pain, nausea, vomiting, diarrhea, constipation, hematemesis Musculoskeletal: denies: back pain Neurological: denies: headache, weakness, numbness, paresthesias, confusion Psychiatric: denies: depression, auditory hallucinations, visual hallucinations, homicidal thoughts, suicidal thoughts ED Past Medical Hx - Past Medical History Hx Hypertension: Yes Hx CVA: No Hx Heart Attack/AMI: Yes (NON-STEMI 2002) Hx Congestive Heart Failure: No Hx Diabetes: No Hx Deep Vein Thrombosis: No Hx Pulmonary Embolism: No Hx GERD: Yes Hx Liver Disease: No Hx Renal Disease: No Hx Sickle Cell Disease: No Hx Arthritis: No Hx Headaches / Migraines: No Hx Seizures: No Hx Kidney Stones: No Hx Psychiatric Treatment: Yes (BIPOLAR) Hx Asthma: No Hx COPD: No Hx Tuberculosis: No Hx Dementia: No Hx HIV: No Additional medical history: Patient's 2008 Non_STEMI was diagnosed by elevated cardiac enzymes, but had a normal stress test. - Surgical History Hx Coronary Stent: No Hx Open Heart Surgery: No Hx Pacemaker: No Hx Internal Defibrillator: No Hx Cholecystectomy: No Hx Appendectomy: Yes Hx Breast Surgery: No - Social History Smoking Status: Current Some Day Smoker Substance Use Type: Alcohol ED Physical Exam - General Limitations: No Limitations General appearance: alert, in no apparent distress - Head Head exam: Present: atraumatic, normocephalic, normal inspection - Eye Eye exam: Present: normal appearance, PERRL - ENT ENT exam: Present: normal exam, normal orophraynx, mucous membranes moist - Neck Neck exam: Present: normal inspection, full ROM. Absent: tenderness, meningismus, lymphadenopathy, thyromegaly - Respiratory Respiratory exam: Present: normal lung sounds bilaterally - Cardiovascular Cardiovascular Exam: Present: regular rate, normal rhythm, normal heart sounds - GI/Abdominal GI/Abdominal exam: Present: soft, normal bowel sounds. Absent: distended, tenderness, guarding, rebound, rigid, organomegaly, mass, bruit, pulsatile mass, hernia - Extremities Exam Extremities exam: Present: normal inspection, full ROM. Absent: tenderness, normal capillary refill, pedal edema, joint swelling, calf tenderness - Back Exam Back exam: Present: normal inspection, full ROM. Absent: CVA tenderness (R), CVA tenderness (L), muscle spasm, paraspinal tenderness, vertebral tenderness - Neurological Exam Neurological exam: Present: alert, oriented X3, CN II-XII intact - Skin Skin exam: Present: warm, intact, normal color ED Course Vital Signs 05/26/19 05/26/19 05/26/19 15:20 16:59 17:57 Temperature 98.4 F Pulse Rate 107 H 65 81 Respiratory 18 12 16 Rate Blood Pressure Blood Pressure 96/62 127/70 111/69 [Right] O2 Sat by Pulse 100 98 98 Oximetry 05/26/19 05/26/19 05/26/19 19:30 21:00 22:00 Temperature 97.8 F Pulse Rate 60 71 62 Respiratory 15 16 17 Rate Blood Pressure 113/56 100/50 Blood Pressure 130/65 [Right] O2 Sat by Pulse 97 93 100 Oximetry 05/26/19 05/26/1905/27/19 23:00 23:16 01:30 Temperature Pulse Rate 72 80 97 H Respiratory 12 14 13 Rate Blood Pressure 105/56 102/58 110/61 Blood Pressure [Right] O2 Sat by Pulse 97 97 100 Oximetry 05/27/19 05/27/19 05/27/19 02:00 02:30 03:00 Temperature Pulse Rate 100 H 100 H 98 H Respiratory 14 13 12 Rate Blood Pressure 103/62 106/69 113/67 Blood Pressure [Right] O2 Sat by Pulse 100 100 99 Oximetry 05/27/19 05/27/19 05/27/19 03:30 04:00 04:30 Temperature Pulse Rate 92 H 92 H 88 Respiratory 12 12 12 Rate Blood Pressure 100/65 112/72 100/69 Blood Pressure [Right] O2 Sat by Pulse 100 100 100 Oximetry 05/27/19 05/27/19 05/27/19 05:00 06:00 06:30 Temperature Pulse Rate 92 H 86 90 Respiratory 12 11 L 14 Rate Blood Pressure 100/65 108/64 102/63 Blood Pressure [Right] O2 Sat by Pulse 100 100 99 Oximetry 05/27/19 05/27/19 05/27/19 07:00 07:30 08:00 Temperature Pulse Rate 77 74 70 Respiratory 22 13 13 Rate Blood Pressure 112/67 100/62 106/63 Blood Pressure 100/62 [Right] O2 Sat by Pulse 99 93 Oximetry 05/27/19 05/27/19 05/27/19 08:30 09:00 09:30 Temperature Pulse Rate 70 71 73 Respiratory 13 10 L 12 Rate Blood Pressure 105/66 126/67 99/57 Blood Pressure [Right] O2 Sat by Pulse 91 89 100 Oximetry 05/27/19 05/27/19 05/27/19 10:00 10:30 11:00 Temperature Pulse Rate 72 71 70 Respiratory 12 12 12 Rate Blood Pressure 114/69 119/65 108/64 Blood Pressure [Right] O2 Sat by Pulse 100 100 100 Oximetry 05/27/19 05/27/19 05/27/19 11:30 12:00 12:30 Temperature Pulse Rate 75 Respiratory 17 Rate Blood Pressure 121/70 108/62 116/70 Blood Pressure [Right] O2 Sat by Pulse 100 100 99 Oximetry 05/27/19 05/27/19 05/27/19 13:05 13:31 14:00 Temperature Pulse Rate 86 90 78 Respiratory 16 21 Rate Blood Pressure 122/67 122/67 127/70 Blood Pressure [Right] O2 Sat by Pulse 100 Oximetry 05/27/19 05/27/19 05/27/19 14:30 15:00 15:31 Temperature Pulse Rate 80 83 Respiratory 14 17 Rate Blood Pressure 126/71 168/69 125/86 Blood Pressure [Right] O2 Sat by Pulse 99 Oximetry LEON score - Leon Score Age > 65: (0) No Aspirin use within the Past 7 Days: (0) No 3 or more CAD Risk Factors: (1) Yes 2 or more Angina events in past 24 hrs: (1) Yes Known CAD with more than 50% Stenosis: (0) No Elevated Cardiac Markers: (0) No ST Deviation Greater than 0.5mm: (0) No LEON Score: 2 ED Medical Decision Making - Lab Data Result diagrams: 05/26/19 16:17 05/26/19 16:17 - EKG Data -: EKG Interpreted by Vt EKG shows normal: sinus rhythm Rate: normal - EKG Data Interpretation: no acute changes - Radiology Data Radiology results: report reviewed - Medical Decision Making Patient is 68 years old female with history of hypertension, coronary artery disease and bipolar disorder. Patient is also homeless. Patient presented to the ER complaining of substernal chest pain started one week ago. Patient described her pain as tightness with no radiation. Patient denied any shortness of breath, fever, chills or cough. Patient also denied any suicidal or homicidal ideation. No visual or auditory hallucination. Patient remained stable. labs reviewed and unremarkable including 3 sets of troponins. CXR is unremarkable. No evidence of acute cardiac issue. Patient admitted that she is homeless and need help. Patient to be seen by Case management in the morning for placement. Critical care attestation.: If time is entered above; I have spent that time in minutes in the direct care of this critically ill patient, excluding procedure time.
[2019-05-27 15:42] VITALS: BP 125/86
== END 2019-05-27 15:42 | disposition home or self-care (01) ==
LOC: ED 15:13
DX: R07.89 Other chest pain (principal); I10 Essential (primary) hypertension; I25.2 Old myocardial infarction; K21.9 Gastro-esophageal reflux disease without esophagitis; F31.9 Bipolar disorder, unspecified; F17.200 Nicotine dependence, unspecified, uncomplicated
CPT/HCPCS: 36415; 71046; 80048; 84484; 85025; 93005; 93010

== ENCOUNTER 2019-05-27 20:28 | Observation (INO) | payer MEDICARE ==
[2019-05-27] MEDS ORDERED: ASPIRIN 325 MG TAB PO ONE (21:08)
--- NOTE | 2019-05-27 21:08 | Event Note ---
ED Screening Note Date of service: 05/27/19 Time: 21:03 ED Screening Note: This is a 68 y.o. F. that presents to the ER with chest pain. PMH of [place], CVA, CAD, HTN, schizophrenia, and bipolar This initial assessment/diagnostic orders/clinical plan/treatment(s) is/are subject to change based on patients health status, clinical progression and re- assessment by fellow clinical providers in the ED. Further treatment and workup at subsequent clinical providers discretion. Patient/guardian urged not to elope from the ED as their condition may be serious if not clinically assessed and managed. Initial orders include: Labs, ekg, & cxr
--- NOTE | 2019-05-27 22:23 | XRay Report ---
CHEST 1 VIEW 05/27/2019 10:02 PM INDICATION / CLINICAL INFORMATION: Chest Pain. COMPARISON: 05/26/19 FINDINGS: SUPPORT DEVICES: None. HEART / MEDIASTINUM: No significant abnormality. LUNGS / PLEURA: No significant pulmonary or pleural abnormality. No pneumothorax. ADDITIONAL FINDINGS: No significant additional findings. IMPRESSION: 1. No acute findings. No change. Signer Name: Onofre Rios MD Signed: 05/27/2019 10:18 PM Workstation Name: [id number]
--- NOTE | 2019-05-27 23:16 | Emergency Department Report ---
HPI - General Chief Complaint: Chest Pain Time Seen by Provider: 05/27/19 21:03 - HPI HPI: Room 3 The patient is a 68-year-old female presenting with a chief complaint of chest pain. Patient states one day she's had substernal chest pain described as a dull pain. Patient was to shortness of breath and nausea but denies vomiting with her pain. Patient missed occasional diaphoresis with her pain. Patient currently gives her pain score of 9/10. The patient states she believes she had a stress test 2 years ago but has never had a cardiac catheterization ED Past Medical Hx - Past Medical History Hx Hypertension: Yes Hx Heart Attack/AMI: Yes (NON-STEMI 2002) Hx GERD: Yes Hx Psychiatric Treatment: Yes (BIPOLAR) Additional medical history: Patient's 2008 Non_STEMI was diagnosed by elevated cardiac enzymes, but had a normal stress test. - Surgical History Hx Appendectomy: Yes - Family History Family history: no significant - Social History Smoking Status: Current Every Day Smoker (1/2 pack per day) Substance Use Type: None (denies illicit drug use) - Medications Home Medications: Home Medications Medication Instructions Recorded Confirmed Last Taken Type ALBUTEROL Inhaler (OR & NICU) 1 puff IH Q4H PRN #1 inha 05/26/18 Unknown Rx [ProAir HFA Inhaler] Acetaminophen [Acetaminophen TAB] 650 mg PO Q4H PRN #15 tablet 05/26/18 Unknown Rx Lisinopril [Zestril TAB] 10 mg PO QDAY #30 tablet 05/26/18 Unknown Rx QUEtiapine [SEROquel] 400 mg PO BID 30 Days tablet 05/26/18 Unknown Rx Quetiapine Fumarate [SEROquel] 400 mg PO BID 30 Days #60 tablet 05/24/19 Unknown Rx ED Review of Systems ROS: Stated complaint: CHEST PAIN Other details as noted in HPI Constitutional: diaphoresis Eyes: denies: eye pain ENT: denies: throat pain Respiratory: shortness of breath Cardiovascular: chest pain Endocrine: no symptoms reported Gastrointestinal: nausea. denies: vomiting Genitourinary: denies: dysuria Musculoskeletal: denies: back pain Neurological: denies: headache Physical Exam - Physical Exam Vital Signs: Vital Signs 05/27/19 20:34 Temperature 97.2 F L Pulse Rate 85 Respiratory 16 Rate Blood Pressure 140/88 O2 Sat by Pulse 99 Oximetry Physical Exam: GENERAL: The patient is well-developed well-nourished female lying on stretcher sleeping not appearing to be in acute distress. [] HEENT: Normocephalic. Atraumatic. Extraocular motions are intact. Patient has moist mucous membranes. NECK: Supple. Trachea midline CHEST/LUNGS: Clear to auscultation. There is no respiratory distress noted. HEART/CARDIOVASCULAR: Regular. There is no tachycardia. There is no gallop rub or murmur. ABDOMEN: Abdomen is soft, nontender. Patient has normal bowel sounds. There is no abdominal distention. SKIN: There is no rash. There is no edema. There is no diaphoresis. NEURO: The patient is asleep but is easily awakened and becomes alert, and oriented. The patient is cooperative. The patient has no focal neurologic deficits. The patient has normal speech MUSCULOSKELETAL: There is no evidence of acute injury. ED Course Vital Signs 05/27/19 20:34 Temperature 97.2 F L Pulse Rate 85 Respiratory 16 Rate Blood Pressure 140/88 O2 Sat by Pulse 99 Oximetry ED Medical Decision Making - Lab Data Result diagrams: 05/27/19 23:29 05/27/19 23:29 Laboratory Tests 05/27/19 05/27/19 23:29 23:29 WBC 7.0 RBC 4.21 Hgb 12.4 Hct 38.0 MCV 90 MCH 29 MCHC 33 RDW 14.6 Plt Count 337 Lymph % (Auto) 24.1 [place] % (Auto) 7.7 H Eos % (Auto) 1.2 Baso % (Auto) 0.6 Lymph # 1.7 [place] # 0.5 Eos # 0.1 Baso # 0.0 Seg Neutrophils % 66.4 Seg Neutrophils # 4.7 Sodium 140 Potassium 3.9 Chloride 102.1 Carbon Dioxide 25 Anion Gap 17 BUN 18 H Creatinine 1.2 Estimated GFR 54 BUN/Creatinine Ratio 15 Glucose 125 H Calcium 9.4 Troponin T < 0.010 - EKG Data -: EKG Interpreted by Me EKG shows normal: sinus rhythm Rate: normal - EKG Data When compared to previous EKG there are: previous EKG unavailable Interpretation: nonspecific ST-T wave joyce (T-wave inversion in lead aVL) - Radiology Data Radiology results: report reviewed (chest x-ray) Chest x-ray (read by radiologist)- no acute findings - Differential Diagnosis CS, pericarditis, GERD Critical care attestation.: If time is entered above; I have spent that time in minutes in the direct care of this critically ill patient, excluding procedure time. ED Disposition Clinical Impression: Chest pain Disposition: OP ADMIT IP TO THIS HOSP Is pt being admited?: Yes Does the pt Need Aspirin: Yes Condition: Fair Instructions: Chest Pain (ED) Time of Disposition: 00:53 (hospitalist paged (Dr Jovana Herrera))
[2019-05-28 00:01] LABS: Basophils % (Auto) 0.6 % (0.0-1.8); Eosinophils # (Auto) 0.1 K/mm3 (0.0-0.4); Eosinophils % (Auto) 1.2 % (0.0-4.3); Hemoglobin 12.4 gm/dl (10.1-14.3); Lymphocytes # (Auto) 1.7 K/mm3 (1.2-5.4); Lymphocytes % (Auto) 24.1 % (13.4-35.0); Mean Corpuscular HGB Conc 33 % (30-34); Mean Corpuscular Volume 90 fl (79-97); Monocytes # (Auto) 0.5 K/mm3 (0.0-0.8); Monocytes % (Auto) 7.7 % (0.0-7.3); Platelet Count 337 K/mm3 (140-440); Red Blood Count 4.21 M/mm3 (3.65-5.03); Red Cell Distribution Width 14.6 % (13.2-15.2)
[2019-05-28 00:14] LABS: BUN/Creatinine Ratio 15; Blood Urea Nitrogen 18 mg/dL (7-17); Calcium 9.4 mg/dL (8.4-10.2); Hemolysis Index 15
[2019-05-28] MEDS ORDERED: oxyCODONE /ACETAMINOPHEN 5-325MG TAB PO PRN (01:25)
[2019-05-28] MEDS ORDERED: ACETAMINOPHEN 325 MG TAB PO PRN (01:25)
[2019-05-28] MEDS ORDERED: ONDANSETRON 4 MG/2 ML INJ IV PRN (01:25)
--- NOTE | 2019-05-28 01:25 | History and Physical Report ---
History of Present Illness Date of examination: 05/28/19 History of present illness: 68 year old woman with history of hypertension, CAD, GERD, Bipolar comes to the emergency room complaining about chest pain in the epigastric pain. She describes the pain as sharp, intermittent every five minutes, intensity 5/10, no radiation, did not identify exacerbating or relieving factors. Admits to nausea, no shortness of breath, diaphoresis or palpitation. She had a stress test 1 year ago. States she is homeless Review of systems Constitutional: no weight loss, chills, fever Ears, eyes, nose, mouth and throat: no nasal congestion, no nasal discharge, no sinus pressure, no vision change, no red eye. Neck: No neck pain or rigidity. Cardiovascular: no palpitations Respiratory: no cough, shortness of breath Gastrointestinal: no abdominal pain hematochezia Genitourinary : no frequency , no hematuria Musculoskeletal: no joint swelling or muscle ache Integumentary: no rash, no pruritis Neurological: no parathesias, no numbness, no focal weakness Endocrine: no cold or heat intolerance, no polyuria or polydipsia Hematologic/Lymphatic: no easy bruising, no easy bleeding, no gland swelling Allergic/Immunologic: no urticaria, no angioedema. PAST MEDICAL HISTORY:hypertension, CAD, GERD, Bipolar PAST SURGICAL HISTORY: Appendectomy SOCIAL HISTORY: Denies alcohol, +tobacco, no drugs FAMILY HISTORY: hypertension Medications and Allergies Allergies Allergy/AdvReac Type Severity Reaction Status Date / Time No Known Allergies Allergy Verified 06/20/18 07:32 Home Medications Medication Instructions Recorded Confirmed Last Taken Type ALBUTEROL Inhaler (OR & NICU) 1 puff IH Q4H PRN #1 inha 05/26/18 05/28/19 Unknown Rx [ProAir HFA Inhaler] Acetaminophen [Acetaminophen TAB] 650 mg PO Q4H PRN #15 tablet 05/26/18 05/28/19 Unknown Rx Lisinopril [Zestril TAB] 10 mg PO QDAY #30 tablet 05/26/18 05/28/19 Unknown Rx QUEtiapine [SEROquel] 400 mg PO BID 30 Days tablet 05/26/18 05/28/19 Unknown Rx Quetiapine Fumarate [SEROquel] 400 mg PO BID 30 Days #60 tablet 05/24/19 05/28/19 Unknown Rx Exam - Physical Exam Narrative exam: General Apperance: The patient sitting in bed no acute distress HEENT: Normocephalic, atraumatic. Pupils equally round and reactive to light, extraocular movement intact, and no sclericterus or JVD or thyromegaly or nodule. Neck supple, no carotid bruit, mucous membranes moist, no exudate or erythema Heart: S1-S2, regular is rhythm Lungs: Clear to auscultation bilaterally, breathing comfortable Abdomen: Positive bowel sounds, soft, nontender, nondistended, no organomegaly Extremities: No edema cyanosis clubbing Skin: no rash, nodule, warm and dry Neuro:CN 2 -12 intact, motor/sensory intact, speech is fluent - Constitutional Vitals: Temp Pulse Resp BP Pulse Ox 97.2 F L 74 14 116/34 100 05/27/19 20:34 05/28/19 01:01 05/28/19 01:01 05/28/19 01:01 05/28/19 01:01 Results - Labs CBC & Chem 7: 05/27/19 23:29 05/27/19 23:29 Labs: Abnormal lab results 05/27/19 05/27/19 Range/Units 23:29 23:29 [place] % (Auto) 7.7 H (0.0-7.3) % BUN 18 H (7-17) mg/dL Glucose 125 H (65-100) mg/dL - Imaging and Cardiology EKG: image reviewed Chest x-ray: report reviewed Assessment and Plan Assessment Chest pain Coronary artery disease Hypertension Bipolar Gerd Homeless Plan Admit to medicine Check cardiac enzymes, consult cardiology DVT prophylaxis, CM consult
[2019-05-28 02:40] LABS: Creatine Kinase MB 1.4 ng/mL (0.0-4.0)
[2019-05-28 05:02] LABS: Eosinophils % (Auto) 1.5 % (0.0-4.3); Hematocrit 35.8 % (30.3-42.9); Hemoglobin 11.9 gm/dl (10.1-14.3); Lymphocytes % (Auto) 26.9 % (13.4-35.0); Mean Corpuscular HGB Conc 33 % (30-34); Mean Corpuscular Volume 89 fl (79-97); Monocytes % (Auto) 9.5 % (0.0-7.3); Platelet Count 353 K/mm3 (140-440); Red Blood Count 4.03 M/mm3 (3.65-5.03); Red Cell Distribution Width 14.8 % (13.2-15.2)
[2019-05-28 05:03] LABS: Basophils % (Auto) 0.4 % (0.0-1.8); Eosinophils # (Auto) 0.1 K/mm3 (0.0-0.4); Lymphocytes # (Auto) 1.8 K/mm3 (1.2-5.4); Monocytes # (Auto) 0.6 K/mm3 (0.0-0.8)
[2019-05-28 05:21] LABS: Calcium 9.3 mg/dL (8.4-10.2)
[2019-05-28 10:55] LABS: Creatine Kinase MB 1.2 ng/mL (0.0-4.0)
--- NOTE | 2019-05-28 11:13 | Progress Note ---
Assessment and Plan Assessment and plan: Patient is a 68 year old woman with history of hypertension, CAD, GERD and Bipolar Disorder comes to the emergency room complaining of chest pains Chest pain Coronary artery disease Hypertension Bipolar Disorder Gerd Homeless Plan Admit to medicine Check cardiac enzymes, consulted Cardiology DVT prophylaxis, CM consult prolonged inpatient services 31 minutes History Interval history: Patient was seen and examined. Follow-up on current diagnosis of Chest pains. No overnight events reported to me. Patient denies any shortness breath, nausea/vomiting or severe headaches. Imaging, nursing note, chart, labs and old chart reviewed. Discussed with patient. Hospitalist Physical - Physical exam Narrative exam: Gen: WDWN, NAD, Awake, Alert, Orientated HEENT: NCAT, EOMI, PERRL, OP Clear Neck: supple, no adenopathy, no thyromegaly, no JVD CVS/Heart: RRR, normal S1S2, pulses present bilaterally Chest/Lungs: CTA B, Symmetrical chest expansion, good air entry bilaterally GI/Abdomen: soft, NTND, good bowel sounds, no guarding or rebound /Bladder: no suprapubic tenderness, no CVA or paraspinal tenderness Extermity/Skin: no c/c/e, no obvious rash MSK: FROM x 4 Neuro: CN 2-12 grossly intact, no new focal deficits Psych: calm - Constitutional Vitals: Temp Pulse Resp BP Pulse Ox 97.9 F 82 18 132/79 100 05/28/19 07:28 05/28/19 07:28 05/28/19 07:28 05/28/19 07:28 05/28/19 08:49 Results - Labs CBC & Chem 7: 05/28/19 04:27 05/28/19 04:27 Labs: Laboratory Last Values WBC 6.7 K/mm3 (4.5-11.0) 05/28/19 04:27 RBC 4.03 M/mm3 (3.65-5.03) 05/28/19 04:27 Hgb 11.9 gm/dl (10.1-14.3) 05/28/19 04:27 Hct 35.8 % (30.3-42.9) 05/28/19 04:27 MCV 89 fl (79-97) 05/28/19 04:27 MCH 29 pg (28-32) 05/28/19 04:27 MCHC 33 % (30-34) 05/28/19 04:27 RDW 14.8 % (13.2-15.2) 05/28/19 04:27 Plt Count 353 K/mm3 (140-440) 05/28/19 04:27 Lymph % (Auto) 26.9 % (13.4-35.0) 05/28/19 04:27 [place] % (Auto) 9.5 % (0.0-7.3) H 05/28/19 04:27 Eos % (Auto) 1.5 % (0.0-4.3) 05/28/19 04:27 Baso % (Auto) 0.4 % (0.0-1.8) 05/28/19 04:27 Lymph # 1.8 K/mm3 (1.2-5.4) 05/28/19 04:27 [place] # 0.6 K/mm3 (0.0-0.8) 05/28/19 04:27 Eos # 0.1 K/mm3 (0.0-0.4) 05/28/19 04:27 Baso # 0.0 K/mm3 (0.0-0.1) 05/28/19 04:27 Seg Neutrophils % 61.7 % (40.0-70.0) 05/28/19 04:27 Seg Neutrophils # 4.1 K/mm3 (1.8-7.7) 05/28/19 04:27 Sodium 145 mmol/L (137-145) 05/28/19 04:27 Potassium 4.2 mmol/L (3.6-5.0) 05/28/19 04:27 Chloride 103.5 mmol/L (98-107) 05/28/19 04:27 Carbon Dioxide 26 mmol/L (22-30) 05/28/19 04:27 Anion Gap 20 mmol/L 05/28/19 04:27 BUN 20 mg/dL (7-17) H 05/28/19 04:27 Creatinine 1.2 mg/dL (0.7-1.2) 05/28/19 04:27 Estimated GFR 54 ml/min 05/28/19 04:27 BUN/Creatinine Ratio 17 % 05/28/19 04:27 Glucose 127 mg/dL (65-100) H 05/28/19 04:27 Calcium 9.3 mg/dL (8.4-10.2) 05/28/19 04:27 Total Creatine Kinase 131 units/L (30-135) 05/28/19 09:48 CK-MB (CK-2) 1.2 ng/mL (0.0-4.0) 05/28/19 09:48 CK-MB (CK-2) Rel Index 0.9 (0-4) 05/28/19 09:48 Troponin T < 0.010 ng/mL (0.00-0.029) 05/28/19 09:48 Active Medications - Current Medications Current Medications: Generic Name Dose Route Start Last Admin Trade Name Freq PRN Reason Stop Dose Admin Acetaminophen 650 mg 05/28/19 01:25 Tylenol PO Q4H PRN Pain MILD(1-3)/Fever >100.5/[place] Ondansetron HCl 4 mg 05/28/19 01:25 Zofran IV Q8H PRN Nausea And Vomiting Oxycodone/Acetaminophen 1 tab 05/28/19 01:25 Percocet 5/325 PO Q6H PRN Pain, Moderate (4-6) Sodium Chloride 10 ml 05/28/19 10:00 05/28/19 10:08 Sodium Chloride Flush Syringe 10 Ml IV 10 ml BID PRAMOD Administration Sodium Chloride 10 ml 05/28/19 01:25 Sodium Chloride Flush Syringe 10 Ml IV PRN PRN LINE FLUSH
--- NOTE | 2019-05-28 11:14 | Event Note ---
Date: 05/28/19 Detailed cardiology consultation dictated. Pt presented with generalized pain, including chest pain, and HTN. She is a rather poor historian. She has a reported h/o bipolar disorder and is currently homeless. AMI ruled out. Obtain echo. Further recs to follow per hospital course. Rosa Maria FINN NP / DR. GIBSON
[2019-05-28] MEDS: LISINOPRIL 10 MG TAB PO SCH (18:46)
--- NOTE | 2019-05-29 01:43 | Consultation ---
CONSULTATION REQUESTED BY: Dr. Jovana Herrera. CONSULTING PHYSICIAN: Dr. Faith. HISTORY OF PRESENT ILLNESS: This is a 68-year-old -[place] female who is now presenting to the office with complaints of chest pain and shortness of breath for further evaluation and management. History is now obtained from the patient. The patient is known to have hypertension, gastroesophageal reflux disease, and bipolar disorder. The patient also gives a history of coronary artery disease, but details not known at this time. The patient is a poor historian. The patient stated that before coming to the Emergency Room, she started experiencing severe sharp pain over the epigastric area, which then spread across the chest and all over the body according to her. She is feeling better now. She did have some shortness of breath, but that is also better now. The patient does not give any typical history of orthopnea or PND. No edema of feet. Palpitations noted. No claudications. No dizziness or syncope. The patient stated that the pain was 5/10 in intensity. Not related to exertion. It was sharp in nature to start off, but then became dull in nature. The patient is homeless. She has not been taking her medications. She has not been to any physician either. PAST MEDICAL HISTORY: Positive for hypertension? coronary artery disease, gastroesophageal reflux disease and bipolar disorder. Also, gives history of appendectomy. SOCIAL HISTORY: The patient denied any history of tobacco abuse or alcohol. FAMILY HISTORY: Unremarkable except for hypertension. MEDICATIONS: The patient was on lisinopril 10 mg p.o. daily, Seroquel 400 mg b.i.d., albuterol inhaler q. 4 hours p.r.n. ALLERGIES: None known. REVIEW OF SYSTEMS: CARDIOVASCULAR: As described above. RESPIRATORY: The patient denied any history of wheezing or asthma. No GI or complaints at the present time. PHYSICAL EXAMINATION: GENERAL: This is a 68-year-old female, well-built, well-nourished, no acute distress at the present time. The patient is conscious, alert, oriented, afebrile. VITAL SIGNS: Normal and stable. SKIN: Warm and dry. HEENT: Pupils are reactive. NECK: Supple. Both carotids well palpable. No definite bruit. No JVD. CHEST: Lungs are fairly clear at this time. No significant rales or rhonchi. HEART: S1, S2 heard well. No gallop rhythm. Soft systolic murmur noted. ABDOMEN: Soft and nontender. No palpable masses. Bowel sounds are normal. EXTREMITIES: No edema, no calf tenderness. Good pedal pulses. NEUROLOGIC: Grossly within normal limits. RECTAL AND PELVIC: Not done at this time. EKG done showed no acute process. LABORATORY DATA: The patient's CBC and CMP were unremarkable except for mildly elevated blood sugar of 125. EKG showed no acute process. Chest x-ray was unremarkable. IMPRESSION: 1. Chest pain? cause, rule out cardiac etiology. 2. History of coronary artery disease. 3. Hypertension. 4. Bipolar disorder. 5. Gastroesophageal reflux disease. This is a 68-year-old female who is now admitted to the hospital with complaints of chest pain. Chest pain is rather atypical for cardiac etiology. The patient is a poor historian. Considering all that, I will treat her conservatively for now. We will resume her medications. Keep the blood pressure under control. Increase activities gradually. If her symptoms persist or get any worse, then we might consider further cardiac workup. Otherwise, rest of the plan as per orders. Thank you very much for this consultation. We will follow the patient along with you. JOB# [id number] CON[place]/BRIDGETT
--- NOTE | 2019-05-29 10:52 | Discharge Summary ---
Providers - Providers Date of Admission: 05/28/19 01:25 Date of discharge: 05/29/19 Attending physician: GISEL JOHNSON 05/28/19 01:25 Consult to Physician [CONS] Routine Comment: Consulting Provider: PABLO HARDING Physician Instructions: Reason For Exam: cp Primary care physician: [facility] MD TEVIN Hospitalization Condition: Fair Pertinent studies: Upon history day patient does not complain of any chest pain patient pain seems to be all over. That she just doesn't feel well generally. Nothing in particular for the chest today. Patient is a poor historian. Found patient to be homeless poor historian. Cardiac workup thus far has been negative. Patient has EKG changes. Negative cardiac isoenzymes. Echocardiogram pending. Plan discharge after cardiology workup complete. Patient may have be scheduled for acute rehabilitation facility. Disposition: TO HOME OR SELFCARE Core Measure Documentation - Palliative Care Palliative Care/ Comfort Measures: Not Applicable - Core Measures Any of the following diagnoses?: none Exam - Constitutional Vitals: Temp Pulse Resp BP Pulse Ox 98.0 F 88 18 102/59 93 05/29/19 07:29 05/29/19 07:29 05/29/19 07:29 05/29/19 07:29 05/29/19 07:29 General appearance: Present: no acute distress, well-nourished - EENT Eyes: Present: PERRL ENT: hearing intact, clear oral mucosa - Neck Neck: Present: supple, normal ROM - Respiratory Respiratory effort: normal Respiratory: bilateral: CTA - Cardiovascular Heart Sounds: Present: S1 & S2. Absent: rub, click - Extremities Extremities: pulses symmetrical, No edema Peripheral Pulses: within normal limits - Abdominal General gastrointestinal: Present: soft, non-tender, non-distended, normal bowel sounds Female genitourinary: Present: normal - Integumentary Integumentary: Present: clear, warm, dry - Musculoskeletal Musculoskeletal: gait normal, strength equal bilaterally - Psychiatric Psychiatric: appropriate mood/affect, intact judgment & insight - Neurologic Neurologic: CNII-XII intact, moves all extremities Plan Activity: no restrictions Weight Bearing Status: Full Weight Bearing Diet: low cholesterol Follow up with: QUINTON CARRIZALES MD [Primary Care Provider] - 3-5 Days Prescriptions: ALBUTEROL Inhaler (OR & NICU) [ProAir HFA Inhaler] 1 puff IH Q4H PRN #1 inha PRN Reason: Difficulty breathing Quetiapine Fumarate [SEROquel] 400 mg PO BID 30 Days #60 tablet traMADol [Ultram 50 MG tab] 50 mg PO Q6H PRN #30 tablet PRN Reason: Pain, Moderate (4-6) Lisinopril [Zestril TAB] 10 mg PO QDAY #30 tablet
--- NOTE | 2019-05-29 11:06 | Progress Note ---
Assessment and Plan Chest pain currently resolved. AMI ruled out. TTE reviewed with no significant abnormalities. Pt may discharge from cardiology standpoint. Recommend follow up in our office with Dr. Faith within 1-2 weeks of discharge ([phone]). The patient has been seen in conjunction with Dr. Faith who agrees with the assessment and plan of care. - Patient Problems (1) Atypical chest pain Current Visit: Yes Status: Resolved (2) History of myocardial infarction Current Visit: Yes Status: Chronic Plan to address problem: in 2006 per pt report - she is unsure if LHC was performed or whether cardiac stents were placed (3) Hypertension Current Visit: Yes Status: Chronic Qualifiers: Hypertension type: essential hypertension Qualified Code(s): I10 - Essential (primary) hypertension (4) GERD (gastroesophageal reflux disease) Current Visit: Yes Status: Chronic (5) Bipolar 1 disorder Current Visit: Yes Status: Chronic (6) Homeless Current Visit: Yes Status: Chronic Subjective Date of service: 05/29/19 Principal diagnosis: cp Interval history: pt resting in bed, no current cardiac complaints. not wearing classroom monitor. Objective Last Vital Signs Temp 98.0 F 05/29/19 07:29 Pulse 88 05/29/19 07:29 Resp 18 05/29/19 07:29 BP 102/59 05/29/19 07:29 Pulse Ox 93 05/29/19 07:29 - Physical Examination General: No Apparent Distress HEENT: Positive: PERRL, Normocephaly, Mucus Membranes Moist Neck: Positive: neck supple, trachea midline Cardiac: Positive: Reg Rate and Rhythm, S1/S2 Lungs: Positive: clear to auscultation Neuro: Positive: Grossly Intact Abdomen: Negative: Tender Skin: Negative: Rash Musculoskeletal: No Pain Extremities: Absent: edema - Imaging and Cardiology EKG: image reviewed Echo: pending - Telemetry EKG Rhythm: Sinus Rhythm
[2019-05-29] MEDS: LISINOPRIL 10 MG TAB PO SCH (11:32)
[2019-05-29] MEDS ORDERED: traMADol 50 MG TAB PO PRN (11:48)
[2019-05-29] MEDS ORDERED: SODIUM CHLORIDE 0.9% 500 ML 500 ML IV ONE (11:49)
[2019-05-29 15:52] VITALS: BP 111/52
== END 2019-05-29 19:34 | disposition home or self-care (01) ==
LOC: ED 20:28 → INTOOBSV 05-28 01:25 → 4A 05-28 01:25
PROVIDERS: ADMIT Internal Medicine; ATTEND Internal Medicine
DX: R07.89 Other chest pain (principal); I25.10 Atherosclerotic heart disease of native coronary artery without angina pectoris; I10 Essential (primary) hypertension; F31.9 Bipolar disorder, unspecified; I25.2 Old myocardial infarction; K21.9 Gastro-esophageal reflux disease without esophagitis; F17.210 Nicotine dependence, cigarettes, uncomplicated; Z90.49 Acquired absence of other specified parts of digestive tract; Z59.0 Homelessness
CPT/HCPCS: 36415; 71045; 80048; 82550; 82553; 84484; 85025; 93005; 93010; 93306; 99284; G0378; J7040

== ENCOUNTER 2019-06-28 00:05 | Emergency (ER) | payer MEDICARE ==
[2019-06-28 00:14] VITALS: BP 132/86
[2019-06-28] MEDS ORDERED: ACETAMINOPHEN 500 MG TAB PO ONE (02:47)
--- NOTE | 2019-06-28 03:08 | Emergency Department Report ---
ED Extremity Problem HPI - General Chief complaint: Extremity Problem,Nontraumatic Stated complaint: BILATERAL FEET AND LEG PAIN Source: patient Mode of arrival: Ambulatory Limitations: No Limitations - History of Present Illness Initial comments: Patient is a 68-year-old -Q[place] female with a history of chronic bipolar disorder, anxiety and depression, chronic osteoarthritis and paranoid schizophrenia who presents to the ED recombinant of acute exacerbation of a chronic bilateral ankle joint pains for the last 2 days. Patient denies fall, traumatic injury, nausea, vomiting, fever, chills, cough, low back pain, heavy lifting, numbness and tingling or lower extremities bilaterally. Patient states that she is constantly walking around and that the pain got worse due to persistently walking around in no fixed abode. Patient states that the cold season starting the pain got worse. MD Complaint: extremity pain (Bilateral ankle pain), joint swelling (Bilateral ankle swelling), joint paint (bilateral ankle pain) -: Gradual (chronic), year(s) (chronic osteoarthritis) Location: bilateral lower extremity (Bilateral ankles) History of Same: Yes (chronic osteoarthritis) -: Yes arthralgia, No associated dyspnea, No associated chest pain Radiation: distal Severity scale (0 -10): 4 Quality: aching, sharp, constant Consistency: constant Improves with: rest Worsens with: weight bearing, walking, exertion, palpation Associated Symptoms: denies other symptoms, arthralgias. denies: chest pain, shortness of breath, myalgias - Related Data Previous Rx's Medication Instructions Recorded Last Taken Type Acetaminophen [Acetaminophen TAB] 650 mg PO Q4H PRN #15 tablet 05/26/18 Unknown Rx QUEtiapine [SEROquel] 400 mg PO BID 30 Days tablet 05/26/18 Unknown Rx ALBUTEROL Inhaler (OR & NICU) 1 puff IH Q4H PRN #1 inha 05/29/19 Unknown Rx [ProAir HFA Inhaler] Acetaminophen [Acetaminophen TAB] 650 mg PO Q4H PRN tablet 05/29/19 Unknown Rx Lisinopril [Zestril TAB] 10 mg PO QDAY #30 tablet 05/29/19 Unknown Rx Quetiapine Fumarate [SEROquel] 400 mg PO BID 30 Days #60 tablet 05/29/19 Unknown Rx traMADoL [Ultram 50 MG tab] 50 mg PO Q6H PRN #30 tablet 05/29/19 Unknown Rx Allergies Allergy/AdvReac Type Severity Reaction Status Date / Time No Known Allergies Allergy Verified 06/20/18 07:32 ED Review of Systems ROS: Stated complaint: BILATERAL FEET AND LEG PAIN Other details as noted in HPI Constitutional: denies: chills, fever Eyes: denies: eye pain, eye discharge, vision change ENT: denies: ear pain, throat pain Respiratory: denies: cough, shortness of breath, wheezing Cardiovascular: denies: chest pain, palpitations Endocrine: no symptoms reported Gastrointestinal: denies: abdominal pain, nausea, diarrhea Genitourinary: denies: urgency, dysuria, discharge Musculoskeletal: joint swelling (Bilateral ankle swelling), arthralgia (Bilateral ankle pain), myalgia. denies: back pain Skin: denies: rash, lesions Neurological: denies: headache, weakness, paresthesias Psychiatric: anxiety. denies: depression, auditory hallucinations, visual hallucinations, homicidal thoughts, suicidal thoughts Hematological/Lymphatic: denies: easy bleeding, easy bruising ED Past Medical Hx - Past Medical History Previous Medical History?: Yes Hx Hypertension: Yes Hx Heart Attack/AMI: Yes (NON-STEMI 2002) Hx GERD: Yes Hx Psychiatric Treatment: Yes (BIPOLAR) Additional medical history: Patient's 2008 Non_STEMI was diagnosed by elevated cardiac enzymes, but had a normal stress test. - Surgical History Past Surgical History?: Yes Hx Appendectomy: Yes - Social History Smoking Status: Current Every Day Smoker Substance Use Type: None - Medications Home Medications: Home Medications Medication Instructions Recorded Confirmed Last Taken Type Acetaminophen [Acetaminophen TAB] 650 mg PO Q4H PRN #15 tablet 05/26/18 05/28/19 Unknown Rx QUEtiapine [SEROquel] 400 mg PO BID 30 Days tablet 05/26/18 05/28/19 Unknown Rx ALBUTEROL Inhaler (OR & NICU) 1 puff IH Q4H PRN #1 inha 05/29/19 Unknown Rx [ProAir HFA Inhaler] Acetaminophen [Acetaminophen TAB] 650 mg PO Q4H PRN tablet 05/29/19 Unknown Rx Lisinopril [Zestril TAB] 10 mg PO QDAY #30 tablet 05/29/19 Unknown Rx Quetiapine Fumarate [SEROquel] 400 mg PO BID 30 Days #60 tablet 05/29/19 Unknown Rx traMADoL [Ultram 50 MG tab] 50 mg PO Q6H PRN #30 tablet 05/29/19 Unknown Rx ED Physical Exam - General Limitations: No Limitations General appearance: alert, in no apparent distress - Head Head exam: Present: atraumatic, normocephalic, normal inspection - Eye Eye exam: Present: normal appearance, PERRL, EOMI Pupils: Present: normal accommodation - ENT ENT exam: Present: normal exam, normal orophraynx, mucous membranes moist, TM's normal bilaterally, normal external ear exam - Neck Neck exam: Present: normal inspection, full ROM - Respiratory Respiratory exam: Present: normal lung sounds bilaterally. Absent: respiratory distress, wheezes, rales, chest wall tenderness, accessory muscle use - Cardiovascular Cardiovascular Exam: Present: regular rate, normal rhythm, normal heart sounds. Absent: systolic murmur, diastolic murmur, rubs, gallop - GI/Abdominal GI/Abdominal exam: Present: soft, normal bowel sounds. Absent: tenderness, hyperactive bowel sounds - Extremities Exam Extremities exam: Present: normal inspection, full ROM, tenderness (Mildly tender bilateral ankle joints with mild swelling), joint swelling (Bilateral mild ankle swelling). Absent: normal capillary refill, calf tenderness - Back Exam Back exam: Present: normal inspection, full ROM. Absent: tenderness, CVA tenderness (R), CVA tenderness (L), muscle spasm, vertebral tenderness - Neurological Exam Neurological exam: Present: alert, oriented X3, CN II-XII intact, normal gait, reflexes normal - Psychiatric Psychiatric exam: Present: normal affect, normal mood, anxious. Absent: depressed, homicidal ideation, suicidal ideation - Skin Skin exam: Present: warm, dry, intact, normal color. Absent: rash ED Course Vital Signs 06/28/19 00:10 Temperature 98.0 F Pulse Rate 96 H Respiratory 18 Rate Blood Pressure 132/86 O2 Sat by Pulse 99 Oximetry ED Medical Decision Making - Radiology Data Radiology results: report reviewed, image reviewed - Medical Decision Making This is a 68-year-old female with a history of chronic osteoarthritis and chronic pain who presented to the ED with persistent bilateral ankle pain and swelling. In the ED, patient is alert and oriented 3 and is not in distress. Patient symptoms have chronic and therefore patient was treated for pain and discharged home and advised to follow-up with her primary care physician in 5-7 days for reevaluation. Patient was also advised to return to the ED immediately if symptoms get worse. - Differential Diagnosis chronic osteoathritis; muscle strain; muscle spasm Critical care attestation.: If time is entered above; I have spent that time in minutes in the direct care of this critically ill patient, excluding procedure time. ED Disposition Clinical Impression: Chronic osteoarthritis, Chronic pain syndrome Disposition: - TO HOME OR SELFCARE Is pt being admited?: No Does the pt Need Aspirin: No Condition: Stable Instructions: Chronic Pain (ED), Osteoarthritis (ED) Additional Instructions: Follow-up with your primary care physician in 5-7 days for reevaluation. Return to the emergency department immediately if symptoms get worse. Referrals: PRIMARY CARE, [Primary Care Provider] - 3-5 Days Time of Disposition: 03:12 Print Language: GREENLANDIC
== END 2019-06-28 03:40 | disposition home or self-care (01) ==
LOC: ED 00:05
DX: M19.072 Primary osteoarthritis, left ankle and foot (principal); M19.071 Primary osteoarthritis, right ankle and foot; G89.29 Other chronic pain; F31.9 Bipolar disorder, unspecified; F20.0 Paranoid schizophrenia; I10 Essential (primary) hypertension; K21.9 Gastro-esophageal reflux disease without esophagitis; F17.200 Nicotine dependence, unspecified, uncomplicated; Z90.49 Acquired absence of other specified parts of digestive tract; Z79.899 Other long term (current) drug therapy
CPT/HCPCS: 99282

== ENCOUNTER 2019-07-02 01:23 | Emergency (ER) | payer MEDICARE ==
--- NOTE | 2019-07-02 02:57 | Emergency Department Report ---
Minor Respiratory - HPI Chief Complaint: Upper Respiratory Infection Stated Complaint: BODY ACHES Time Seen by Provider: 07/02/19 02:53 Duration: 2 weeks Minor Respiratory: Yes Rhinorrhea, Yes Able to Tolerate Fluids, Yes Cough, No Sore Throat, No Ear Pain, No Sick Contacts, No Hemoptysis, No Chest Pain, No Shortness of Breath, No Fever Other History: 68-year-old -Ch[place] female with a past medical history of bipolar been off her Seroquel for months presents to the emergency room for runny nose cough and body aches 2 weeks. She has not taken any medications for pain. ED Review of Systems ROS: Stated complaint: BODY ACHES Other details as noted in HPI Comment: All other systems reviewed and negative ED Past Medical Hx - Past Medical History Previous Medical History?: Yes Hx Hypertension: Yes Hx Heart Attack/AMI: Yes (NON-STEMI 2002) Hx GERD: Yes Hx Psychiatric Treatment: Yes (BIPOLAR) Additional medical history: Patient's 2008 Non_STEMI was diagnosed by elevated cardiac enzymes, but had a normal stress test. - Surgical History Past Surgical History?: Yes Hx Appendectomy: Yes - Social History Smoking Status: Current Every Day Smoker Substance Use Type: None - Medications Home Medications: Home Medications Medication Instructions Recorded Confirmed Last Taken Type Acetaminophen [Acetaminophen TAB] 650 mg PO Q4H PRN #15 tablet 05/26/18 05/28/19 Unknown Rx QUEtiapine [SEROquel] 400 mg PO BID 30 Days tablet 05/26/18 05/28/19 Unknown Rx ALBUTEROL Inhaler (OR & NICU) 1 puff IH Q4H PRN #1 inha 05/29/19 Unknown Rx [ProAir HFA Inhaler] Acetaminophen [Acetaminophen TAB] 650 mg PO Q4H PRN tablet 05/29/19 Unknown Rx Lisinopril [Zestril TAB] 10 mg PO QDAY #30 tablet 05/29/19 Unknown Rx Quetiapine Fumarate [SEROquel] 400 mg PO BID 30 Days #60 tablet 05/29/19 Unknown Rx traMADoL [Ultram 50 MG tab] 50 mg PO Q6H PRN #30 tablet 05/29/19 Unknown Rx Minor Respiratory Exam - Exam General: Vital signs noted. No distress. Alert and acting appropriately. Ear: Neither TM Bulge, Neither TM Erythema, Neither EAC Pain, Neither EAC Discharge Neck: Yes Supple, No Adenopathy Lungs: Yes Good Air Exchange, No Wheezes, No Ronchi, No Stridor, No Cough, No Labored Respirations, No Retractions, No Use of Accessory Muscles, No Other Abnormal Lung Sounds Heart: Yes Regular, No Murmur Abdomen: Yes Normal Bowel Sounds, No Tenderness, No Peritoneal Signs Neurologic: Alert and oriented, no deficits. Musculoskeletal: Unremarkable. ED Course Vital Signs 07/02/19 01:27 Temperature 97.4 F L Pulse Rate 101 H Respiratory 18 Rate Blood Pressure 118/84 O2 Sat by Pulse 100 Oximetry ED Medical Decision Making - Medical Decision Making 68-year-old -Ch[place] female with a past medical history of bipolar been off her Seroquel for months presents to the emergency room for runny nose cough and body aches 2 weeks. She has not taken any medications for pain. Patient reports that triage gave her Tylenol for pain. I discussed the patient I will refer her to [facility] which would be closer for her to get on the bus says she is able to get refills on her Seroquel. Critical care attestation.: If time is entered above; I have spent that time in minutes in the direct care of this critically ill patient, excluding procedure time. ED Disposition Clinical Impression: URI (upper respiratory infection), Bipolar 1 disorder Disposition: -01 TO HOME OR SELFCARE Is pt being admited?: No Does the pt Need Aspirin: No Condition: Stable Instructions: Upper Respiratory Infection (ED) [facility] [Outside] - 3-5 Days
[2019-07-02 04:28] VITALS: BP 142/74
== END 2019-07-02 04:29 | disposition home or self-care (01) ==
LOC: ED 01:23
DX: J06.9 Acute upper respiratory infection, unspecified (principal); F31.9 Bipolar disorder, unspecified; I10 Essential (primary) hypertension; I25.2 Old myocardial infarction; K21.9 Gastro-esophageal reflux disease without esophagitis; F17.200 Nicotine dependence, unspecified, uncomplicated; Z90.49 Acquired absence of other specified parts of digestive tract; Z79.899 Other long term (current) drug therapy

== ENCOUNTER 2019-07-24 00:31 | Emergency (ER) | payer MEDICARE ==
[2019-07-24] MEDS ORDERED: IBUPROFEN 800 MG TAB PO ONE (06:32)
[2019-07-24 07:24] VITALS: BP 151/62
--- NOTE | 2019-07-24 08:43 | Emergency Department Report ---
ED General Adult HPI - General Chief complaint: Pain General Stated complaint: ACHES, PAINS, ABCESS Time Seen by Provider: 07/24/19 06:16 Source: patient Mode of arrival: Ambulatory Limitations: No Limitations - History of Present Illness Initial comments: 68 year old female the past medical history bipolar disorder, GERD, CAD, and hypertension presents to the hospital complaining of generalized pain and being homeless. Patient has asked for a place to stay. Overall very poor historian. States she's been noncompliant with her medications 2 weeks. As per medical record review similar presentation a past for pain and medication noncompliance. Severity scale (0 -10): 3 - Related Data Previous Rx's Medication Instructions Recorded Last Taken Type Acetaminophen [Acetaminophen TAB] 650 mg PO Q4H PRN #15 tablet 05/26/18 Unknown Rx QUEtiapine [SEROquel] 400 mg PO BID 30 Days tablet 05/26/18 Unknown Rx ALBUTEROL Inhaler (OR & NICU) 1 puff IH Q4H PRN #1 inha 05/29/19 Unknown Rx [ProAir HFA Inhaler] Acetaminophen [Acetaminophen TAB] 650 mg PO Q4H PRN tablet 05/29/19 Unknown Rx Lisinopril [Zestril TAB] 10 mg PO QDAY #30 tablet 05/29/19 Unknown Rx Quetiapine Fumarate [SEROquel] 400 mg PO BID 30 Days #60 tablet 05/29/19 Unknown Rx traMADoL [Ultram 50 MG tab] 50 mg PO Q6H PRN #30 tablet 05/29/19 Unknown Rx Ibuprofen [Motrin] 600 mg PO Q8H PRN #30 tablet 07/24/19 Unknown Rx Allergies Allergy/AdvReac Type Severity Reaction Status Date / Time No Known Allergies Allergy Verified 06/20/18 07:32 ED Review of Systems ROS: Stated complaint: ACHES, PAINS, ABCESS Other details as noted in HPI Comment: All other systems reviewed and negative ED Past Medical Hx - Past Medical History Previous Medical History?: Yes Hx Hypertension: Yes Hx Heart Attack/AMI: Yes (NON-STEMI 2002) Hx GERD: Yes Hx Psychiatric Treatment: Yes (BIPOLAR) Additional medical history: Patient's 2008 Non_STEMI was diagnosed by elevated cardiac enzymes, but had a normal stress test. - Surgical History Past Surgical History?: Yes Hx Appendectomy: Yes - Social History Smoking Status: Current Every Day Smoker Substance Use Type: None - Medications Home Medications: Home Medications Medication Instructions Recorded Confirmed Last Taken Type Acetaminophen [Acetaminophen TAB] 650 mg PO Q4H PRN #15 tablet 05/26/18 05/28/19 Unknown Rx QUEtiapine [SEROquel] 400 mg PO BID 30 Days tablet 05/26/18 05/28/19 Unknown Rx ALBUTEROL Inhaler (OR & NICU) 1 puff IH Q4H PRN #1 inha 05/29/19 Unknown Rx [ProAir HFA Inhaler] Acetaminophen [Acetaminophen TAB] 650 mg PO Q4H PRN tablet 05/29/19 Unknown Rx Lisinopril [Zestril TAB] 10 mg PO QDAY #30 tablet 05/29/19 Unknown Rx Quetiapine Fumarate [SEROquel] 400 mg PO BID 30 Days #60 tablet 05/29/19 Unknown Rx traMADoL [Ultram 50 MG tab] 50 mg PO Q6H PRN #30 tablet 05/29/19 Unknown Rx Ibuprofen [Motrin] 600 mg PO Q8H PRN #30 tablet 07/24/19 Unknown Rx ED Physical Exam - General Limitations: No Limitations - Other Other exam information: General: No acute distress Head: Atraumatic Eyes: normal appearance ENT: Moist mucous membranes Neck: Normal appearance, no midline tenderness Chest: Clear to auscultation bilaterally CV: Regular rate and rhythm Abdomen: Soft, normal bowel sounds, nontender, nondistended, no rebound or guarding Back: Normal inspection Extremity: Normal inspection infection, full range of motion Neuro: Alert and oriented to self, no gross motor sensory deficit Psych: Rambling, poor historian Skin: No rash ED Course Vital Signs 07/24/19 07/24/19 07/24/19 00:58 03:17 07:24 Temperature 98 F Pulse Rate 87 66 Respiratory 18 18 16 Rate Blood Pressure 143/93 151/62 [Right] O2 Sat by Pulse 98 100 Oximetry ED Medical Decision Making - Medical Decision Making Present patient is here mainly because she has nowhere else to go and is requesting pain medication. Motrin provided in the ED. Social work consult obtained to provide resources for homelessness. She'll be discharged with Motrin. Critical Care Time: No Critical care attestation.: If time is entered above; I have spent that time in minutes in the direct care of this critically ill patient, excluding procedure time. ED Disposition Clinical Impression: Generalized pain, Homeless, Bipolar disorder Disposition: DC- TO HOME OR SELFCARE Is pt being admited?: No Condition: Stable Instructions: Chronic Pain (ED), Bipolar Disorder (ED) Additional Instructions: Take the medication as prescribed. Follow-up with your doctor or doctor/clinic provided. Return if symptoms worsen as indicated by your discharge instructions. Prescriptions: Ibuprofen [Motrin] 600 mg PO Q8H PRN #30 tablet PRN Reason: Pain Referrals: PRIMARY MD JOSE ALFREDO [Primary Care Provider] - 3-5 Days ANDRAE CONTEH MD [Staff Physician] - 3-5 Days [facility] [Provider Group] - 3-5 Days [facility] [Outside] - 3-5 Days Time of Disposition: 08:45
== END 2019-07-24 09:23 | disposition home or self-care (01) ==
LOC: ED 00:31
DX: M79.18 Myalgia, other site (principal); F32.9 Major depressive disorder, single episode, unspecified; I10 Essential (primary) hypertension; I25.2 Old myocardial infarction; K21.9 Gastro-esophageal reflux disease without esophagitis; F31.9 Bipolar disorder, unspecified; F17.200 Nicotine dependence, unspecified, uncomplicated; Z90.49 Acquired absence of other specified parts of digestive tract; Z79.899 Other long term (current) drug therapy
CPT/HCPCS: 99282

== ENCOUNTER 2019-08-02 07:52 | Emergency (ER) | payer MEDICARE ==
[2019-08-02 08:04] VITALS: BP 170/90
--- NOTE | 2019-08-02 09:46 | Emergency Department Report ---
HPI - General Chief Complaint: Medical Clearance Time Seen by Provider: 08/02/19 09:29 - HPI HPI: 68-year-old female presents to the emergency department for medication refills. The patient has a history of acid reflux, coronary artery d isease, hypertension and bipolar disorder. She is asking for a refill of her lisinopril, albuterol inhaler and her Seroquel. She says that she has a psychiatric physician but she has not seen them recently. She has been out of her medications for at least 2 months. She denies any other complaints. ED Past Medical Hx - Past Medical History Hx Hypertension: Yes Hx Heart Attack/AMI: Yes (NON-STEMI 2002) Hx GERD: Yes Hx Psychiatric Treatment: Yes (BIPOLAR) Additional medical history: Patient's 2008 Non_STEMI was diagnosed by elevated cardiac enzymes, but had a normal stress test. - Surgical History Hx Appendectomy: Yes - Social History Smoking Status: Current Every Day Smoker Substance Use Type: None - Medications Home Medications: Home Medications Medication Instructions Recorded Confirmed Last Taken Type Acetaminophen [Acetaminophen TAB] 650 mg PO Q4H PRN #15 tablet 05/26/18 05/28/19 Unknown Rx QUEtiapine [SEROquel] 400 mg PO BID 30 Days tablet 05/26/18 05/28/19 Unknown Rx Acetaminophen [Acetaminophen TAB] 650 mg PO Q4H PRN tablet 05/29/19 Unknown Rx Quetiapine Fumarate [SEROquel] 400 mg PO BID 30 Days #60 tablet 05/29/19 Unknown Rx traMADoL [Ultram 50 MG tab] 50 mg PO Q6H PRN #30 tablet 05/29/19 Unknown Rx Ibuprofen [Motrin] 600 mg PO Q8H PRN #30 tablet 07/24/19 Unknown Rx ALBUTEROL Inhaler (OR & NICU) 1 puff IH Q4H PRN #1 inha 08/02/19 Unknown Rx [ProAir HFA Inhaler] lisinopriL [Zestril TAB] 10 mg PO QDAY #30 tablet 08/02/19 Unknown Rx ED Review of Systems ROS: Stated complaint: MED REFILL Other details as noted in HPI Comment: All other systems reviewed and negative Constitutional: denies: chills, fever Respiratory: denies: shortness of breath Cardiovascular: denies: chest pain Gastrointestinal: denies: abdominal pain Neurological: denies: headache Physical Exam - Physical Exam Vital Signs: Vital Signs 08/02/19 08:02 Temperature 97.3 F L Pulse Rate 80 Respiratory 18 Rate Blood Pressure 170/90 O2 Sat by Pulse 98 Oximetry Physical Exam: GENERAL: The patient is well-developed well-nourished. HENT: Normocephalic. Atraumatic. Patient has moist mucous membranes. EYES: Extraocular motions are intact. NECK: Supple. Trachea is midline. CHEST/LUNGS: Clear to auscultation. There is no respiratory distress noted. HEART/CARDIOVASCULAR: Regular. There is no tachycardia. There is no murmur. ABDOMEN:There is no abdominal distention. SKIN: Skin is warm and dry. NEURO: The patient is awake, alert, and oriented. The patient is cooperative. The patient has no focal neurologic deficits. The patient has normal speech. MUSCULOSKELETAL: There is no tenderness or deformity. There is no evidence of acute injury. ED Course Vital Signs 08/02/19 08:02 Temperature 97.3 F L Pulse Rate 80 Respiratory 18 Rate Blood Pressure 170/90 O2 Sat by Pulse 98 Oximetry ED Medical Decision Making - Medical Decision Making This patient presents to the emergency department for medication refills. She is asking for her Seroquel and asked for an albuterol inhaler. I explained that it has been greater than 2 months since she was last on the Seroquel, and she has a psychiatrist for follow-up, so I will not be filling the Seroquel at this time. I am happy to give her an albuterol inhaler prescription, and she will receive a prescription for her lisinopril. I also gave her a referral for the [facility] facility, who takes walkins, in case she has di fficulty following up with her own psychiatrist. She has otherwise been awake, alert, calm and appropriate and does not appear to require any type of mental health evaluation. Critical Care Time: No Critical care attestation.: If time is entered above; I have spent that time in minutes in the direct care of this critically ill patient, excluding procedure time. ED Disposition Clinical Impression: Medication refill Hypertension Qualifiers: Hypertension type: essential hypertension Qualified Code(s): I10 - Essential (primary) hypertension Disposition: TO HOME OR SELFCARE Is pt being admited?: No Condition: Stable Instructions: Hypertension (ED) Additional Instructions: I have given you a referral for the [facility] facility so that he can follow up regarding a refill on your Seroquel. They take walk-in appointments. I have also given you a referral for [facility] for your primary care needs. Try and stay away from foods are high in salt and caffeinated products to help with your blood pressure. Daily blood pressure log. Return to the emergency department with any acute distress. Prescriptions: ALBUTEROL Inhaler (OR & NICU) [ProAir HFA Inhaler] 1 puff IH Q4H PRN #1 inha PRN Reason: Difficulty breathing lisinopriL [Zestril TAB] 10 mg PO QDAY #30 tablet Referrals: [facility] [Outside] - 2-3 Days [facility] [Outside] - 2-3 Days Time of Disposition: 09:46
== END 2019-08-02 09:53 | disposition home or self-care (01) ==
LOC: ED 07:52
DX: I10 Essential (primary) hypertension (principal); I21.9 Acute myocardial infarction, unspecified; K21.9 Gastro-esophageal reflux disease without esophagitis; F31.9 Bipolar disorder, unspecified; F17.200 Nicotine dependence, unspecified, uncomplicated; Z76.0 Encounter for issue of repeat prescription; Z79.1 Long term (current) use of non-steroidal anti-inflammatories (NSAID); Z79.899 Other long term (current) drug therapy
CPT/HCPCS: 99282

== ENCOUNTER 2019-09-25 01:03 | Emergency (ER) | payer MEDICARE ==
--- NOTE | 2019-09-25 02:07 | XRay Report ---
CHEST 2 VIEWS INDICATION / CLINICAL INFORMATION: Body aches. Fever earlier today per patient. COMPARISON: One view of the chest from 05/27/2019. FINDINGS: SUPPORT DEVICES: None. HEART / MEDIASTINUM: No significant abnormality. LUNGS / PLEURA: No significant pulmonary or pleural abnormality. No pneumothorax. ADDITIONAL FINDINGS: No significant additional findings. IMPRESSION: 1. No acute abnormality of the chest. Signer Name: Jez Monroy MD Signed: 09/25/2019 2:03 AM Workstation Name: [id number]
[2019-09-25 02:09] LABS: Basophils % (Auto) 0.6 % (0.0-1.8); Eosinophils # (Auto) 0.1 K/mm3 (0.0-0.4); Hematocrit 37.2 % (30.3-42.9); Hemoglobin 12.4 gm/dl (10.1-14.3); Lymphocytes # (Auto) 1.2 K/mm3 (1.2-5.4); Lymphocytes % (Auto) 15.6 % (13.4-35.0); Mean Corpuscular HGB Conc 33 % (30-34); Mean Corpuscular Volume 88 fl (79-97); Monocytes # (Auto) 0.5 K/mm3 (0.0-0.8); Platelet Count 317 K/mm3 (140-440); Red Blood Count 4.22 M/mm3 (3.65-5.03); Red Cell Distribution Width 14.5 % (13.2-15.2)
[2019-09-25 02:31] LABS: Albumin 4.2 g/dL (3.9-5)
[2019-09-25 06:03] VITALS: BP 102/63
== END 2019-09-25 01:36 | disposition left against medical advice (07) ==
LOC: ED 01:03
DX: R50.9 Fever, unspecified (principal); Z53.21 Procedure and treatment not carried out due to patient leaving prior to being seen by health care provider
CPT/HCPCS: 36415; 71046; 80053; 85025

== ENCOUNTER 2019-12-22 22:41 | Emergency (ER) | payer MEDICARE ==
[2019-12-23] MEDS ORDERED: ACETAMINOPHEN 500 MG TAB PO ONE (01:15)
--- NOTE | 2019-12-23 01:19 | Emergency Department Report ---
ED General Adult HPI - General Chief complaint: Medical Clearance Stated complaint: BODY PAIN PUI?: No Time Seen by Provider: 12/23/19 00:58 Source: patient, RN notes reviewed, old records reviewed Mode of arrival: Ambulatory Limitations: No Limitations - History of Present Illness Initial comments: Patient is a 69-year-old female who has been seen by myself in the past, presenting to the ER today with a complaint of painless request for quetiapine refill. She typically goes to [place], or [place] Patient has been off of her medication for 1 month. Denies headache, neck pain, chest pain, abdominal pain, shortness of breath, homicidality, suicidality. She indicates that she is not trying to overdose on anything. She has chronic aching throbbing left bicep pain, and bilateral paralumbar pain, the pain does not radiate anywhere, and she does not describe exacerbating or relieving factors. She denies additional complaints at this time. -: week(s) Location: back, left, upper extremity Quality: other Consistency: other Improves with: other Worsens with: other Associated Symptoms: other - Related Data Previous Rx's Medication Instructions Recorded Last Taken Type traMADoL [Ultram 50 MG tab] 50 mg PO Q6H PRN #30 tablet 05/29/19 Unknown Rx Albuterol Sulfate [Proventil Hfa] 6.7 gm IH QID PRN #1 hfa.aer.ad 09/24/19 Unknown Rx Quetiapine Fumarate [SEROquel] 400 mg PO BID 30 Days #60 tablet 09/24/19 Unknown Rx lisinopriL [Zestril TAB] 10 mg PO QDAY #30 tablet 09/24/19 Unknown Rx Allergies Allergy/AdvReac Type Severity Reaction Status Date / Time No Known Allergies Allergy Verified 06/20/18 07:32 ED Review of Systems ROS: Stated complaint: BODY PAIN Other details as noted in HPI Constitutional: see HPI Eyes: as per HPI ENT: as per HPI Respiratory: see HPI Cardiovascular: as per HPI Endocrine: see HPI Gastrointestinal: as per HPI Genitourinary: as per HPI Musculoskeletal: as per HPI Skin: as per HPI Neurological: as per HPI Psychiatric: as per HPI Hematological/Lymphatic: as per HPI ED Past Medical Hx - Past Medical History Previous Medical History?: Yes Hx Hypertension: Yes Hx Heart Attack/AMI: Yes (NON-STEMI 2002) Hx GERD: Yes Hx Psychiatric Treatment: Yes (BIPOLAR) Additional medical history: Patient's 2008 Non_STEMI was diagnosed by elevated cardiac enzymes, but had a normal stress test. - Surgical History Past Surgical History?: Yes Hx Appendectomy: Yes - Social History Smoking Status: Never Smoker Substance Use Type: Alcohol - Medications Home Medications: Home Medications Medication Instructions Recorded Confirmed Last Taken Type traMADoL [Ultram 50 MG tab] 50 mg PO Q6H PRN #30 tablet 05/29/19 09/21/19 Unknown Rx Albuterol Sulfate [Proventil Hfa] 6.7 gm IH QID PRN #1 hfa.aer.ad 09/24/19 Unknown Rx Quetiapine Fumarate [SEROquel] 400 mg PO BID 30 Days #60 tablet 09/24/19 Unknown Rx lisinopriL [Zestril TAB] 10 mg PO QDAY #30 tablet 09/24/19 Unknown Rx ED Physical Exam - General Limitations: No Limitations General appearance: alert, in no apparent distress - Head Head exam: Present: atraumatic, normocephalic - Eye Eye exam: Present: normal appearance, EOMI. Absent: nystagmus - ENT ENT exam: Present: normal exam, normal orophraynx, mucous membranes moist, normal external ear exam - Neck Neck exam: Present: normal inspection, full ROM. Absent: tenderness, meningismus - Respiratory Respiratory exam: Present: normal lung sounds bilaterally. Absent: respiratory distress - Cardiovascular Cardiovascular Exam: Present: regular rate, normal rhythm, normal heart sounds. Absent: bradycardia, tachycardia, irregular rhythm, systolic murmur, diastolic murmur, rubs, gallop - GI/Abdominal GI/Abdominal exam: Present: soft. Absent: distended, tenderness, guarding, rebound, rigid, pulsatile mass - Extremities Exam Extremities exam: Present: normal inspection, full ROM, other (2+ pulses noted on the bilateral upper extremities. There is no long bony tenderness. The muscular compartments are soft. The pelvis is stable.). Absent: calf tenderness - Back Exam Back exam: Present: normal inspection, full ROM. Absent: tenderness, CVA tenderness (R), CVA tenderness (L), paraspinal tenderness, vertebral tenderness - Neurological Exam Neurological exam: Present: alert, oriented X3, other (No facial droop. Tongue midline. Extraocular movements intact bilaterally. Facial sensation intact to light touch in V1, V2, V3 distribution bilaterally. 5 and a 5 strength in 4 extremities. Sensation intact to light touch in 4 extremities.). Absent: motor sensory deficit - Psychiatric Psychiatric exam: Present: flat affect. Absent: homicidal ideation, suicidal ideation - Skin Skin exam: Present: warm, dry, intact, normal color. Absent: rash ED Course Vital Signs 12/22/19 22:45 Temperature 98.0 F Pulse Rate 70 Respiratory 18 Rate Blood Pressure 186/94 O2 Sat by Pulse 99 Oximetry ED Medical Decision Making - Lab Data Vital Signs 12/22/19 22:45 Temperature 98.0 F Pulse Rate 70 Respiratory 18 Rate Blood Pressure 186/94 O2 Sat by Pulse 99 Oximetry - Medical Decision Making Differential diagnosis, including but not limited to: Chronic musculoskeletal pain, noncompliance Assessment and plan: 69-year-old female, who is afebrile with reassuring vital signs, with the exception of chronic hypertension, presenting with noncompliance, and chronic musculoskeletal pain. She is clinically sober, and does not meet criteria for 1013 at this time. Patient will be medicated with Tylenol for her chronic musculoskeletal pain. Advised patient that we cannot refill her psychiatric medications, but that she should follow-up with an outpatient psychiatrist to have her chronic medications refilled. Patient does not appear to have an emergent medical condition at this time. Critical care attestation.: If time is entered above; I have spent that time in minutes in the direct care of this critically ill patient, excluding procedure time. ED Disposition Clinical Impression: General medical exam Disposition: DC-01 TO HOME OR SELFCARE Is pt being admited?: No Does the pt Need Aspirin: No Condition: Stable Additional Instructions: Please follow-up with an outpatient primary care doctor or psychiatrist within the next 2 weeks. Rest, avoid heavy lifting, and strenuous physical activities. Patient may take [id number] Tylenol as needed for pain. Please return to the emergency room right away with new, worsened or different symptoms, or symptoms not present on the initial emergency room evaluation. Referrals: ANDRAE CONTEH MD [Staff Physician] - 3-5 Days [facility] [Outside] - 3-5 Days
== END 2019-12-23 01:31 | disposition home or self-care (01) ==
LOC: ED 22:41
DX: I10 Essential (primary) hypertension (principal); I25.2 Old myocardial infarction; F31.9 Bipolar disorder, unspecified; K21.9 Gastro-esophageal reflux disease without esophagitis; Z90.49 Acquired absence of other specified parts of digestive tract; Z79.899 Other long term (current) drug therapy; Z00.00 Encounter for general adult medical examination without abnormal findings
CPT/HCPCS: 99282

== ENCOUNTER 2020-01-21 02:56 | Emergency (ER) | payer MEDICARE ==
[2020-01-21 05:06] LABS: Basophils % (Auto) 0.9 % (0.0-1.8); Eosinophils # (Auto) 0.1 K/mm3 (0.0-0.4); Eosinophils % (Auto) 1.6 % (0.0-4.3); Hematocrit 35.9 % (30.3-42.9); Hemoglobin 11.7 gm/dl (10.1-14.3); Lymphocytes # (Auto) 1.8 K/mm3 (1.2-5.4); Lymphocytes % (Auto) 35.9 % (13.4-35.0); Mean Corpuscular HGB Conc 33 % (30-34); Mean Corpuscular Volume 90 fl (79-97); Monocytes # (Auto) 0.5 K/mm3 (0.0-0.8); Platelet Count 377 K/mm3 (140-440); Red Cell Distribution Width 15.3 % (13.2-15.2)
[2020-01-21 05:21] LABS: BUN/Creatinine Ratio 15; Blood Urea Nitrogen 12 mg/dL (7-17); Calcium 9.2 mg/dL (8.4-10.2); Hemolysis Index 51
[2020-01-21 07:12] VITALS: BP 163/82
== END 2020-01-21 09:24 | disposition home or self-care (01) ==
LOC: ED 02:56
DX: R07.89 Other chest pain (principal); M79.606 Pain in leg, unspecified; M25.519 Pain in unspecified shoulder; G89.29 Other chronic pain; I25.2 Old myocardial infarction; I10 Essential (primary) hypertension; K21.9 Gastro-esophageal reflux disease without esophagitis; F31.9 Bipolar disorder, unspecified; F17.200 Nicotine dependence, unspecified, uncomplicated; Z90.49 Acquired absence of other specified parts of digestive tract; Z79.899 Other long term (current) drug therapy
CPT/HCPCS: 36415; 71045; 80048; 80320; 82550; 83735; 84484; 85025; 93005; G0480

== ENCOUNTER 2021-01-15 11:05 | Emergency (ER) | payer MEDICARE ==
[2021-01-15 14:11] LABS: Basophils % (Auto) 0.6 % (0.0-1.8); Eosinophils # (Auto) 0.1 K/mm3 (0.0-0.4); Eosinophils % (Auto) 1.6 % (0.0-4.3); Hematocrit 38.6 % (30.3-42.9); Hemoglobin 12.6 gm/dl (10.1-14.3); Lymphocytes # (Auto) 2.4 K/mm3 (1.2-5.4); Lymphocytes % (Auto) 27.8 % (13.4-35.0); Mean Corpuscular HGB Conc 33 % (30-34); Mean Corpuscular Volume 88 fl (79-97); Monocytes # (Auto) 0.8 K/mm3 (0.0-0.8); Monocytes % (Auto) 9.8 % (0.0-7.3); Red Blood Count 4.37 M/mm3 (3.65-5.03); Red Cell Distribution Width 14.9 % (13.2-15.2)
[2021-01-15 14:24] LABS: Alanine Aminotransferase 10 units/L (7-56); Albumin 4.3 g/dL (3.9-5); BUN/Creatinine Ratio 12; Blood Urea Nitrogen 11 mg/dL (7-17); Calcium 9.4 mg/dL (8.4-10.2); Hemolysis Index 23
[2021-01-15 14:29] LABS: Bilirubin,Direct < 0.2 mg/dL (0-0.2)
[2021-01-15 15:44] LABS: Platelet Count 237 K/mm3 (140-440)
--- NOTE | 2021-01-15 16:35 | Emergency Department Report ---
ED Psych HPI - General Chief Complaint: Psych Stated Complaint: MH EVAL Time Seen by Provider: 01/15/21 11:49 Source: EMS Mode of arrival: Stretcher - History of Present Illness Initial Comments: 70-year-old female, history bipolar disorder, drug abuse, presents to ED for evaluation. Patient was apparently staying at a personal residential. Due to patient's behavior (aggressive, cursing), the other residents actually left the personal residential. Patient then left the personal residential herself. Daughter states she was unable to be reached by cell phone, so a missing persons report was filed. Patient finally called her daughter today. She was at a hotel. When daughter arrived, police was also on scene and informed her that the hotel is a known case for drug abuse. Daughter is unsure if patient used any drugs today. Patient has been off of her psychiatric medication. Today, patient was violent, aggressive, cursing. Patient denies any SI or HI. Complaint: other -: unknown Quality: constant Improves With: medication Worsens With: drug use Context: not taking psychiatric Treatments Prior to Arrival: none - Related Data Previous Rx's Medication Instructions Recorded Last Taken Type traMADoL [Ultram 50 MG tab] 50 mg PO Q6H PRN #30 tablet 05/29/19 Unknown Rx Quetiapine Fumarate [SEROquel] 400 mg PO BID 30 Days #60 tablet 09/24/19 Unknown Rx Albuterol Sulfate [Proventil Hfa] 6.7 gm IH QID PRN #1 hfa.aer.ad 01/21/20 Unknown Rx Aspirin [Aspirin BABY CHEW TAB] 81 mg PO QDAY #30 tab.chew 01/21/20 Unknown Rx Famotidine [Pepcid] 20 mg PO BID #60 tablet 01/21/20 Unknown Rx lisinopriL [Zestril TAB] 10 mg PO QDAY #30 tablet 01/21/20 Unknown Rx Allergies Allergy/AdvReac Type Severity Reaction Status Date / Time No Known Allergies Allergy Verified 06/20/18 07:32 ED Review of Systems ROS: Stated complaint: MH EVAL Other details as noted in HPI Comment: All other systems reviewed and negative Psychiatric: denies: auditory hallucinations, homicidal thoughts, suicidal thoughts ED Past Medical Hx - Past Medical History Previous Medical History?: Yes Hx Hypertension: Yes Hx Heart Attack/AMI: Yes (NON-STEMI 2002) Hx GERD: Yes Hx Psychiatric Treatment: Yes (BIPOLAR) Additional medical history: Patient's 2008 Non_STEMI was diagnosed by elevated cardiac enzymes, but had a normal stress test. - Surgical History Past Surgical History?: Yes Hx Appendectomy: Yes - Social History Smoking Status: Current Every Day Smoker Substance Use Type: Alcohol - Medications Home Medications: Home Medications Medication Instructions Recorded Confirmed Last Taken Type traMADoL [Ultram 50 MG tab] 50 mg PO Q6H PRN #30 tablet 05/29/19 01/16/21 Unknown Rx Quetiapine Fumarate [SEROquel] 400 mg PO BID 30 Days #60 tablet 09/24/19 01/16/21 Unknown Rx Albuterol Sulfate [Proventil Hfa] 6.7 gm IH QID PRN #1 hfa.aer.ad 01/21/20 01/16/21 Unknown Rx Aspirin [Aspirin BABY CHEW TAB] 81 mg PO QDAY #30 tab.chew 01/21/20 01/16/21 Unknown Rx Famotidine [Pepcid] 20 mg PO BID #60 tablet 01/21/20 01/16/21 Unknown Rx lisinopriL [Zestril TAB] 10 mg PO QDAY #30 tablet 01/21/20 01/16/21 Unknown Rx ED Physical Exam - General Limitations: No Limitations General appearance: alert, in no apparent distress - Head Head exam: Present: atraumatic, normocephalic - Eye Eye exam: Present: normal appearance, EOMI - ENT ENT exam: Present: mucous membranes moist - Neck Neck exam: Present: normal inspection - Respiratory Respiratory exam: Present: normal lung sounds bilaterally. Absent: respiratory distress - Cardiovascular Cardiovascular Exam: Present: regular rate, normal rhythm - GI/Abdominal GI/Abdominal exam: Present: soft. Absent: distended, tenderness - Extremities Exam Extremities exam: Present: normal inspection - Neurological Exam Neurological exam: Present: alert, oriented X3 - Psychiatric Psychiatric exam: Present: normal affect, normal mood - Skin Skin exam: Present: warm, dry, intact, normal color ED Course Vital Signs 01/15/21 01/15/21 01/15/21 12:00 12:01 13:01 Temperature 97.9 F Pulse Rate 87 86 78 Respiratory 11 L 14 20 Rate Blood Pressure 149/91 149/91 137/76 Blood Pressure [Left] O2 Sat by Pulse 100 90 99 Oximetry 01/15/21 01/15/21 01/15/21 14:01 15:01 16:01 Temperature Pulse Rate 76 73 76 Respiratory 17 19 20 Rate Blood Pressure 129/85 139/76 143/84 Blood Pressure [Left] O2 Sat by Pulse 100 94 100 Oximetry 01/15/21 01/15/21 01/16/21 21:00 23:00 01:01 Temperature 98 F Pulse Rate 78 77 77 Respiratory 19 19 15 Rate Blood Pressure Blood Pressure 134/87 115/70 107/77 [Left] O2 Sat by Pulse 100 97 100 Oximetry 01/16/21 01/16/21 01/16/21 01:32 03:14 05:34 Temperature 98.6 F 97.6 F Pulse Rate 70 69 90 Respiratory 20 18 20 Rate Blood Pressure Blood Pressure 100/62 119/63 150/75 [Left] O2 Sat by Pulse 100 100 100 Oximetry 01/16/21 01/16/21 01/16/21 06:56 13:29 17:33 Temperature 98.8 F Pulse Rate 65 71 68 Respiratory 13 15 17 Rate Blood Pressure Blood Pressure 145/76 143/54 138/72 [Left] O2 Sat by Pulse 99 100 100 Oximetry ED Medical Decision Making - Lab Data Result diagrams: 01/15/21 12:37 01/15/21 12:37 - Medical Decision Making Patient is medically clear for mental health evaluation. Will dispo per psych. Critical care attestation.: If time is entered above; I have spent that time in minutes in the direct care of this critically ill patient, excluding procedure time. ED Disposition Clinical Impression: Bipolar disorder Disposition: DC-01 TO HOME OR SELFCARE Is pt being admited?: No Condition: Stable Referrals: PRIMARY CARE, [Primary Care Provider] - 3-5 Days
[2021-01-15 17:01] LABS: Bacteria,Urine 1+ /HPF (Negative); Bilirubin,Urine NEG (Negative); Blood,Urine SM (Negative); Color,Urine Yellow (Yellow); Protein,Urine <15 mg/dL mg/dL (Negative); Urobilinogen,Urine < 2.0 mg/dL (<2.0)
[2021-01-15 17:06] LABS: Amphetamine Screen,Urine Negative; Benzodiazepines Screen,Urine Negative; Cannabinoid Screen,Urine Negative; Cocaine Screen,Urine Negative; Methadone Screen,Urine Negative; Opiate Screen,Urine Negative
--- NOTE | 2021-01-16 10:32 | Event Note ---
S: " Can I get my Seroquel?" O: Stable vital signs, patient is calm and cooperative A: Bipolar disorder, polysubstance abuse, patient is medically clear for psychiatric care P: Awaiting treatment recommendations per psychiatric team
--- NOTE | 2021-01-16 12:35 | Consultation ---
History of Present Illness - Reason for Consult Consult date: 01/16/21 Reason for consult: agitation - History of Present Psychiatric Illness Per ER Note: 70-year-old female, history bipolar disorder, drug abuse, presents to ED for evaluation. Patient was apparently staying at a personal [facility]. Due to patient's behavior (aggressive, cursing), the other residents actually left the personal [facility]. Patient then left the personal mcc herself. Daughter states she was unable to be reached by cell phone, so a missing persons report was filed. Patient finally called her daughter today. She was at a hotel. When daughter arrived, police was also on scene and informed her that the hotel is a known case for drug abuse. Daughter is unsure if patient used any drugs today. Patient has been off of her psychiatric medication. Today, patient was violent, aggressive, cursing. Patient denies any SI or HI. The patient was seen today, she is dressed with sunglasses on. The patient is confused and has poor insight. She says she's here because her daughter felt she need evaluation. The patient was having agitation and aggressive behavior with family. Will admit to [facility] for stabilization. PAST PSYCHIATRIC HISTORY: Diagnoses: Schizophrenia and bipolar Suicide attempts or Self-harm behavior: None reported Prior psychiatric hospitalizations: Yes Substance Abuse history: Denies illicit drug use but then asked for cocaine Previous psychiatric medications tried: Yes Outpatient treatment: Yes PAST MEDICAL HISTORY: Diabetes, hypertension, tried Family Psychiatric History: None reported or documented SOCIAL HISTORY Marital Status: single Living Arrangements: With self Employment Status: [employer] Access to guns/weapons: None reported Education: Some high school History of Abuse: None reported Legal History: None reported REVIEW OF SYSTEMS Constitutional: Negative for weight loss ENT: Negative for stridor Respiratory: Negative for cough or hemoptysis All other systems reviewed and are negative MENTAL STATUS EXAMINATION General Appearance and Behavior: Age appropriate, good hygiene, not wearing appropriate clothes, good eye contact, cooperative polite with questioning. Cooperation: Participating/engaged Psychomotor Behavior: Psychomotor agitation Mood: Good Affect and affective range: euthymic, euphoric Thought Process:Circumstantial, Illogical, Thought Content: Flight of ideas, Illogical, Grandiose, Speech: pressured, loud volume at times Intellectual Functioning: Average Suicidal Ideation:SI Homicidal Ideation: Denies HIl Impulse Control: Impaired Insight and Judgment: Limited insight and judgment Memory: Normal, Attention: Divided attention impaired Orientation: Alert, oriented, Assessment and Plan (1) Bipolar disorder with psychotic features Current Visit: Yes Status: Acute Treatment Plan Medications: Trazodone 50mg po qhs Sitter: Per primary Medical: Per primary Disposition: Recommend acute psychiatric inpatient on [facility] Will follow. Thanks Case staffed with Dr. Lazaro Medications and Allergies Allergies Allergy/AdvReac Type Severity Reaction Status Date / Time No Known Allergies Allergy Verified 06/20/18 07:32 Home Medications Medication Instructions Recorded Confirmed Last Taken Type traMADoL [Ultram 50 MG tab] 50 mg PO Q6H PRN #30 tablet 05/29/19 09/21/19 Unknown Rx Quetiapine Fumarate [SEROquel] 400 mg PO BID 30 Days #60 tablet 09/24/19 Unknown Rx Albuterol Sulfate [Proventil Hfa] 6.7 gm IH QID PRN #1 hfa.aer.ad 01/21/20 Un known Rx Aspirin [Aspirin BABY CHEW TAB] 81 mg PO QDAY #30 tab.chew 01/21/20 Unknown Rx Famotidine [Pepcid] 20 mg PO BID #60 tablet 01/21/20 Unknown Rx lisinopriL [Zestril TAB] 10 mg PO QDAY #30 tablet 01/21/20 Unknown Rx Mental Status Exam - Vital signs Last Vital Signs Temp 97.6 F 01/16/21 05:34 Pulse 65 01/16/21 06:56 Resp 13 01/16/21 06:56 BP 145/76 01/16/21 06:56 Pulse Ox 99 01/16/21 06:56 Results Result Diagrams: 01/15/21 12:37 01/15/21 12:37 Abnormal lab results 01/15/21 01/15/21 01/15/21 Range/Units 12:37 12:37 12:37 Kimble % (Auto) 9.8 H (0.0-7.3) % Salicylates < 0.3 L (2.8-20.0) mg/dL Acetaminophen 5.0 L (10.0-30.0) ug/mL All other labs normal.
[2021-01-16 17:34] VITALS: BP 138/72
[2021-01-16] MEDS ORDERED: traZODone 50 MG TAB PO SCH (22:00)
== END 2021-01-16 21:59 | disposition home or self-care (01) ==
LOC: ED 11:05
DX: F31.9 Bipolar disorder, unspecified (principal); Z20.822 Contact with and (suspected) exposure to COVID-19; I10 Essential (primary) hypertension; I25.2 Old myocardial infarction; K21.9 Gastro-esophageal reflux disease without esophagitis; F17.200 Nicotine dependence, unspecified, uncomplicated; Z90.49 Acquired absence of other specified parts of digestive tract; Z79.899 Other long term (current) drug therapy
CPT/HCPCS: 36415; 80048; 80076; 80307; 81001; 85025; 99284; U0003; 80320; G0480

== ENCOUNTER 2021-01-16 15:13 | Inpatient (IN) | payer MEDICARE, MEDICAID ==
[2021-01-17 05:39] LABS: Basophils % (Auto) 0.8 % (0.0-1.8); Eosinophils # (Auto) 0.1 K/mm3 (0.0-0.4); Eosinophils % (Auto) 2.5 % (0.0-4.3); Hematocrit 34.5 % (30.3-42.9); Hemoglobin 11.5 gm/dl (10.1-14.3); Lymphocytes # (Auto) 2.4 K/mm3 (1.2-5.4); Lymphocytes % (Auto) 42.5 % (13.4-35.0); Mean Corpuscular HGB Conc 33 % (30-34); Mean Corpuscular Volume 87 fl (79-97); Monocytes # (Auto) 0.7 K/mm3 (0.0-0.8); Monocytes % (Auto) 11.8 % (0.0-7.3); Platelet Count 319 K/mm3 (140-440); Red Blood Count 3.95 M/mm3 (3.65-5.03); Red Cell Distribution Width 14.8 % (13.2-15.2)
[2021-01-17 06:13] LABS: Alanine Aminotransferase 8 units/L (7-56); BUN/Creatinine Ratio 14; Blood Urea Nitrogen 13 mg/dL (7-17); Calcium 8.7 mg/dL (8.4-10.2); HDL Cholesterol 66 mg/dL (40-59); Hemolysis Index 1; LDL Cholesterol,Direct 106 mg/dL (50-130)
[2021-01-17] MEDS ORDERED: ALBUTEROL 8.5 GM MDI INHALATION IH PRN (09:08)
[2021-01-17] MEDS ORDERED: traMADol 50 MG TAB PO PRN (09:08)
--- NOTE | 2021-01-17 09:08 | History and Physical Report ---
GP History & Physical - History of Present Illness Date of admission: 01/16/21 Date of Examination: 01/17/21 Reason for Admission: Failure of Outpatient Treatment, Severe anxiety/depression, Unable to care for self History of Present Illness: Per ER Note: 70-year-old female, history bipolar disorder, drug abuse, presents to ED for evaluation. Patient was apparently staying at a [facility]. Due to patient's behavior (aggressive, cursing), the other residents actually left the personal [facility]. Patient then left the personal [facility] herself. Daughter states she was unable to be reached by cell phone, so a missing persons report was filed. Patient finally called her daughter today. She was at a hotel. When daughter arrived, police was also on scene and informed her that the hotel is a known case for drug abuse. Daughter is unsure if patient used any drugs today. Patient has been off of her psychiatric medication. Today, patient was violent, aggressive, cursing. Patient denies any SI or HI. This patient was first evaluated by me in the ER. She was brought in by family for agitation and aggression. During my interview with the patient, she is pleasantly confused and has poor insight. She's unable to give a lot of insight as to what is going on with her. She did say her daughter brought her here to get evaluated. The patient denies SI/HI or hallucinations. PAST PSYCHIATRIC HISTORY: Diagnoses: Schizophrenia and bipolar Suicide attempts or Self-harm behavior: None reported Prior psychiatric hospitalizations: Yes Substance Abuse history: Denies illicit drug use but then asked for cocaine Previous psychiatric medications tried: Yes Outpatient treatment: Yes PAST MEDICAL HISTORY: Diabetes, hypertension, tried Family Psychiatric History: None reported or documented SOCIAL HISTORY Marital Status: single Living Arrangements: With self Employment Status: [employer] Access to guns/weapons: None reported Education: Some high school History of Abuse: None reported Legal History: None reported REVIEW OF SYSTEMS Constitutional: Negative for weight loss ENT: Negative for stridor Respiratory: Negative for cough or hemoptysis All other systems reviewed and are negative MENTAL STATUS EXAMINATION General Appearance and Behavior: Age appropriate, good hygiene, not wearing appropriate clothes, good eye contact, cooperative polite with questioning. Cooperation: Participating/engaged Psychomotor Behavior: Psychomotor agitation Mood: Good Affect and affective range: congruent with stated mood Thought Process: Circumstantial, Illogical, Thought Content: None Speech: Normal tone and pace Suicidal Ideation:SI Homicidal Ideation: Denies HIl Impulse Control: Impaired Insight and Judgment: Poor insight and judgment Memory: Limited Attention: Divided attention impaired Orientation: Alert, oriented, Assessment and Plan (1) Bipolar disorder with psychotic features Current Visit: Yes Status: Acute Treatment Plan Patient admitted for inpatient psychiatric evaluation, medication adjustment and close monitoring The patient's behavior, mood, sleep and appetite will be closely monitored. Patient enrolled in individual and group therapeutic sessions and encouraged to attend. Patient provided with a safe and structured environment. Patient's physical health needs will be addressed by the Hospitalist. Hospitalist Consulted Labs including CBC, CMP, Lipid profile and Hemoglobin A1C levels ordered for baseline reference Social Assessment will be completed and the Roll Repairer will work with patient and family to ensure a suitable and safe disposition Medication adjustment will be made as clinically indicated Continued home medications Usual Wellness Anabaptist/Preservation: - Start Trazodone 50 mg po QHS & 50 mg po QHS PRN between 10 PM & 2 AM for insomnia - Start Melatonin 5 mg po QHS to promote circadian rhythm - Start [place]-3 for brain health, reduce impulsivity, and as adjunctive treatm ent for mood disorder, continue upon discharge given overall benefits. - Start B1 prophylaxis with 200 mg po for 5 days The patient agreed on the treatment plan, understood the risk, benefit, altern ative treatment, potential consequence of no treatment, and gave informed consent. Estimated days: 2 Post hospital care: primary care provider, psychiatric provider Case staffed with Dr. Lazaro Legal Status: Voluntary Reaction to Hospitalization: Accepting Medications and Allergies Allergies Allergy/AdvReac Type Severity Reaction Status Date / Time No Known Allergies Allergy Verified 06/20/18 07:32 Home Medications Medication Instructions Recorded Confirmed Last Taken Type traMADoL [Ultram 50 MG tab] 50 mg PO Q6H PRN #30 tablet 05/29/19 01/16/21 Unknown Rx Quetiapine Fumarate [SEROquel] 400 mg PO BID 30 Days #60 tablet 09/24/19 01/16/21 Unknown Rx Albuterol Sulfate [Proventil Hfa] 6.7 gm IH QID PRN #1 hfa.aer.ad 01/21/20 01/16/21 Unknown Rx Aspirin [Aspirin BABY CHEW TAB] 81 mg PO QDAY #30 tab.chew 01/21/20 01/16/21 Unknown Rx Famotidine [Pepcid] 20 mg PO BID #60 tablet 01/21/20 01/16/21 Unknown Rx lisinopriL [Zestril TAB] 10 mg PO QDAY #30 tablet 01/21/20 01/16/21 Unknown Rx Active Meds: Active Medications Trazodone HCl (Trazodone 50 Mg Tab) 50 mg PO QHS [facility] Results - Results Labs/Vitals: Laboratory Last Values WBC 5.7 K/mm3 (4.5-11.0) 01/17/21 05:23 RBC 3.95 M/mm3 (3.65-5.03) 01/17/21 05:23 Hgb 11.5 gm/dl (10.1-14.3) 01/17/21 05:23 Hct 34.5 % (30.3-42.9) 01/17/21 05:23 MCV 87 fl (79-97) 01/17/21 05:23 MCH 29 pg (28-32) 01/17/21 05:23 MCHC 33 % (30-34) 01/17/21 05:23 RDW 14.8 % (13.2-15.2) 01/17/21 05:23 Plt Count 319 K/mm3 (140-440) 01/17/21 05:23 Lymph % (Auto) 42.5 % (13.4-35.0) H 01/17/21 05:23 [place] % (Auto) 11.8 % (0.0-7.3) H 01/17/21 05:23 Eos % (Auto) 2.5 % (0.0-4.3) 01/17/21 05:23 Baso % (Auto) 0.8 % (0.0-1.8) 01/17/21 05:23 Lymph # (Auto) 2.4 K/mm3 (1.2-5.4) 01/17/21 05:23 [place] # (Auto) 0.7 K/mm3 (0.0-0.8) 01/17/21 05:23 Eos # (Auto) 0.1 K/mm3 (0.0-0.4) 01/17/21 05:23 Baso # (Auto) 0.0 K/mm3 (0.0-0.1) 01/17/21 05:23 Seg Neutrophils % 42.4 % (40.0-70.0) 01/17/21 05:23 Seg Neutrophils # 2.4 K/mm3 (1.8-7.7) 01/17/21 05:23 Sodium 137 mmol/L (137-145) 01/17/21 05:23 Potassium 3.7 mmol/L (3.6-5.0) 01/17/21 05:23 Chloride 101.9 mmol/L (98-107) 01/17/21 05:23 Carbon Dioxide 26 mmol/L (22-30) 01/17/21 05:23 Anion Gap 13 mmol/L 01/17/21 05:23 BUN 13 mg/dL (7-17) 01/17/21 05:23 Creatinine 0.9 mg/dL (0.6-1.2) 01/17/21 05:23 Estimated GFR > 60 ml/min 01/17/21 05:23 BUN/Creatinine Ratio 14 % 01/17/21 05:23 Glucose 98 mg/dL (65-100) 01/17/21 05:23 Hemoglobin A1c 5.6 % (4-6) 01/17/21 05:23 Calcium 8.7 mg/dL (8.4-10.2) 01/17/21 05:23 Total Bilirubin < 0.20 mg/dL (0.1-1.2) 01/17/21 05:23 AST 16 units/L (5-40) 01/17/21 05:23 ALT 8 units/L (7-56) 01/17/21 05:23 Alkaline Phosphatase 80 units/L (35-129) 01/17/21 05:23 Total Protein 6.5 g/dL (6.3-8.2) 01/17/21 05:23 Albumin 4.0 g/dL (3.9-5) 01/17/21 05:23 Albumin/Globulin Ratio 1.6 % 01/17/21 05:23 Triglycerides 129 mg/dL (2-149) 01/17/21 05:23 Cholesterol 185 mg/dL (50-199) 01/17/21 05:23 LDL Cholesterol Direct 106 mg/dL (50-130) 01/17/21 05:23 HDL Cholesterol 66 mg/dL (40-59) H 01/17/21 05:23 Cholesterol/HDL Ratio 2.80 % 01/17/21 05:23 TSH 0.669 mlU/mL (0.270-4.200) 01/17/21 05:23 Physician Certification - Certification Statement Physician Certification Statement: This is an acknowledgement statement that RAJESH LYNCH is a 70 year old F who requires inpatient psychiatric admission for treatment which could reasonably be expected to improve the patient's condition for Estimated period of time patient will need to remain in the hospital: [ ] Plan for post-hospital care: [ ]
[2021-01-17] MEDS ORDERED: ALBUTEROL 2.5 MG/3 ML NEBU IH PRN (09:17)
[2021-01-17] MEDS: ASPIRIN 81 MG TAB CHEW PO SCH (10:42)
[2021-01-17] MEDS: QUEtiapine 200 MG TAB PO SCH ×2 (10:42→21:26)
[2021-01-17] MEDS: LISINOPRIL 10 MG TAB PO SCH (10:42)
[2021-01-17] MEDS: FAMOTIDINE 20 MG TAB PO SCH ×2 (10:42→21:26)
[2021-01-17] MEDS: NICOTINE 21 MG/24 HR PATCH TD SCH (11:39)
[2021-01-17] MEDS: traZODone 50 MG TAB PO SCH (21:26)
[2021-01-18] MEDS: FAMOTIDINE 20 MG TAB PO SCH ×2 (02:20→09:53)
[2021-01-18] MEDS: ASPIRIN 81 MG TAB CHEW PO SCH (09:49)
[2021-01-18] MEDS: LISINOPRIL 10 MG TAB PO SCH (09:49)
[2021-01-18] MEDS: QUEtiapine 200 MG TAB PO SCH ×2 (09:51→21:00)
[2021-01-18] MEDS: NICOTINE 21 MG/24 HR PATCH TD SCH (09:53)
--- NOTE | 2021-01-18 10:08 | Progress Note ---
Subjective Date of service: 01/18/21 Principal diagnosis: Bipolar Subjective Comment: Per nurse note: Pt labile, irritable, resistive to care and isolated to self, she spent the morning hours in the activity, med compliant. She denies SI, HI and hallucinations. The patient was seen today, she is confused, but says she's doing alright. She seems a little irritable. She is rambling about some things at the retirement. It was difficult to follow her. She says "they all left there, and I don't know if that lady really owns the retirement." She then says "she say she does, but they all left. My daughter doesn't know because she wasn't there." The patient says "I don't want nobody calling them or my daughter unless they got a degree. I don't want all these different people talking to everybody without degrees." The patient says she came here because she needed to get evaluated. She says "and I need it. I need to make sure my medications are right." She denies SI/HI or hallucinations. REVIEW OF SYSTEMS Constitutional: Negative for weight loss ENT: Negative for stridor Respiratory: Negative for cough or hemoptysis All other systems reviewed and are negative MENTAL STATUS EXAMINATION General Appearance and Behavior: Age appropriate, good hygiene, not wearing appropriate clothes, good eye contact, cooperative polite with questioning. Cooperation: Participating/engaged Psychomotor Behavior: Psychomotor agitation Mood: Good Affect and affective range: congruent with stated mood Thought Process: Circumstantial, Illogical, Thought Content: None Speech: Normal tone and pace Suicidal Ideation: Denies SI Homicidal Ideation: Denies HI Impulse Control: Impaired Insight and Judgment: Poor insight and judgment Memory: Limited Attention: Divided attention impaired Orientation: Alert, oriented, Assessment and Plan (1) Bipolar disorder Current Visit: Yes Status: Acute Treatment Plan Patient admitted for inpatient psychiatric evaluation, medication adjustment and close monitoring The patient's behavior, mood, sleep and appetite will be closely monitored. Patient enrolled in individual and group therapeutic sessions and encouraged to attend. Patient provided with a safe and structured environment. Patient's physical health needs will be addressed by the Hospitalist. Hospitalist Consulted Labs including CBC, CMP, Lipid profile and Hemoglobin A1C levels ordered for baseline reference Social Assessment will be completed and the Construction Accountant will work with patient and family to ensure a suitable and safe disposition Medication adjustment will be made as clinically indicated Start Valproic 125mg po BID Usual Wellness Restorationist/Preservation: - Start Trazodone 50 mg po QHS & 50 mg po QHS PRN between 10 PM & 2 AM for insomnia - Start Melatonin 5 mg po QHS to promote circadian rhythm - Start Star-3 for brain health, reduce impulsivity, and as adjunctive treatment for mood disorder, continue upon discharge given overall benefits. - Start B1 prophylaxis with 200 mg po for 5 days The patient agreed on the treatment plan, understood the risk, benefit, alternative treatment, potential consequence of no treatment, and gave informed consent. Estimated days: 2 Post hospital care: primary care provider, psychiatric provider Case staffed with Dr. Lazaro Medications and Allergies Allergies Allergy/AdvReac Type Severity Reaction Status Date / Time No Known Allergies Allergy Verified 06/20/18 07:32 Home Medications Medication Instructions Recorded Confirmed Last Taken Type traMADoL [Ultram 50 MG tab] 50 mg PO Q6H PRN #30 tablet 05/29/19 01/16/21 Unknown Rx Quetiapine Fumarate [SEROquel] 400 mg PO BID 30 Days #60 tablet 09/24/19 01/16/21 Unknown Rx Albuterol Sulfate [Proventil Hfa] 6.7 gm IH QID PRN #1 hfa.aer.ad 01/21/20 01/16/21 Unknown Rx Aspirin [Aspirin BABY CHEW TAB] 81 mg PO QDAY #30 tab.chew 01/21/20 01/16/21 Unknown Rx Famotidine [Pepcid] 20 mg PO BID #60 tablet 01/21/20 01/16/21 Unknown Rx lisinopriL [Zestril TAB] 10 mg PO QDAY #30 tablet 01/21/20 01/16/21 Unknown Rx Active Meds: Active Medications Albuterol (Albuterol 2.5 Mg/3 Ml Nebu) 2.5 mg IH Q4HRT PRN PRN Reason: Shortness Of Breath Aspirin (Aspirin 81 Mg Tab Chew) 81 mg PO QDAY [facility] Last Admin: 01/18/21 09:49 Dose: 81 mg Documented by: Famotidine (Famotidine 20 Mg Tab) 20 mg PO BID [facility] Last Admin: 01/18/21 09:53 Dose: 20 mg Documented by: Lisinopril (Lisinopril 10 Mg Tab) 10 mg PO QDAY [facility] Last Admin: 01/18/21 09:49 Dose: 10 mg Documented by: Nicotine (Nicotine 21 Mg/24 Hr Patch) 21 mg TD QDAY [facility] Last Admin: 01/18/21 09:53 Dose: 21 mg Documented by: Quetiapine Fumarate (Quetiapine 200 Mg Tab) 400 mg PO BID [facility] Last Admin: 01/18/21 09:51 Dose: 400 mg Documented by: Tramadol HCl (Tramadol 50 Mg Tab) 50 mg PO Q6H PRN PRN Reason: Pain, Moderate (4-6) Trazodone HCl (Trazodone 50 Mg Tab) 50 mg PO QHS [facility] Last Admin: 01/17/21 21:26 Dose: 50 mg Documented by: Results - Results Labs/Vitals: Laboratory Last Values WBC 5.7 K/mm3 (4.5-11.0) 01/17/21 05:23 RBC 3.95 M/mm3 (3.65-5.03) 01/17/21 05:23 Hgb 11.5 gm/dl (10.1-14.3) 01/17/21 05:23 Hct 34.5 % (30.3-42.9) 01/17/21 05:23 MCV 87 fl (79-97) 01/17/21 05:23 MCH 29 pg (28-32) 01/17/21 05:23 MCHC 33 % (30-34) 01/17/21 05:23 RDW 14.8 % (13.2-15.2) 01/17/21 05:23 Plt Count 319 K/mm3 (140-440) 01/17/21 05:23 Lymph % (Auto) 42.5 % (13.4-35.0) H 01/17/21 05:23 [place] % (Auto) 11.8 % (0.0-7.3) H 01/17/21 05:23 Eos % (Auto) 2.5 % (0.0-4.3) 01/17/21 05:23 Baso % (Auto) 0.8 % (0.0-1.8) 01/17/21 05:23 Lymph # (Auto) 2.4 K/mm3 (1.2-5.4) 01/17/21 05:23 [place] # (Auto) 0.7 K/mm3 (0.0-0.8) 01/17/21 05:23 Eos # (Auto) 0.1 K/mm3 (0.0-0.4) 01/17/21 05:23 Baso # (Auto) 0.0 K/mm3 (0.0-0.1) 01/17/21 05:23 Seg Neutrophils % 42.4 % (40.0-70.0) 01/17/21 05:23 Seg Neutrophils # 2.4 K/mm3 (1.8-7.7) 01/17/21 05:23 Sodium 137 mmol/L (137-145) 01/17/21 05:23 Potassium 3.7 mmol/L (3.6-5.0) 01/17/21 05:23 Chloride 101.9 mmol/L (98-107) 01/17/21 05:23 Carbon Dioxide 26 mmol/L (22-30) 01/17/21 05:23 Anion Gap 13 mmol/L 01/17/21 05:23 BUN 13 mg/dL (7-17) 01/17/21 05:23 Creatinine 0.9 mg/dL (0.6-1.2) 01/17/21 05:23 Estimated GFR > 60 ml/min 01/17/21 05:23 BUN/Creatinine Ratio 14 % 01/17/21 05:23 Glucose 98 mg/dL (65-100) 01/17/21 05:23 POC Glucose 98 mg/dL (70-105) 01/17/21 06:32 Hemoglobin A1c 5.6 % (4-6) 01/17/21 05:23 Calcium 8.7 mg/dL (8.4-10.2) 01/17/21 05:23 Total Bilirubin < 0.20 mg/dL (0.1-1.2) 01/17/21 05:23 AST 16 units/L (5-40) 01/17/21 05:23 ALT 8 units/L (7-56) 01/17/21 05:23 Alkaline Phosphatase 80 units/L (35-129) 01/17/21 05:23 Total Protein 6.5 g/dL (6.3-8.2) 01/17/21 05:23 Albumin 4.0 g/dL (3.9-5) 01/17/21 05:23 Albumin/Globulin Ratio 1.6 % 01/17/21 05:23 Triglycerides 129 mg/dL (2-149) 01/17/21 05:23 Cholesterol 185 mg/dL (50-199) 01/17/21 05:23 LDL Cholesterol Direct 106 mg/dL (50-130) 01/17/21 05:23 HDL Cholesterol 66 mg/dL (40-59) H 01/17/21 05:23 Cholesterol/HDL Ratio 2.80 % 01/17/21 05:23 TSH 0.669 mlU/mL (0.270-4.200) 01/17/21 05:23 Last Vital Signs Temp 97.4 F L 01/18/21 09:37 Pulse 75 01/18/21 09:49 Resp 16 01/18/21 09:37 BP 145/56 01/18/21 09:49 Pulse Ox 99 01/18/21 09:37
[2021-01-18] MEDS: VALPROIC ACID 250 MG/5 ML ORAL LIQD PO SCH ×2 (10:55→22:00)
[2021-01-18] MEDS: traZODone 50 MG TAB PO SCH (22:00)
--- NOTE | 2021-01-19 08:49 | Progress Note ---
Subjective Date of service: 01/19/21 Principal diagnosis: Bipolar Subjective Comment: Per nurse note: Patient rested for an average of 8 hours during the shift, patient resting quietly on bed, RR even and unlabored, no complaints verbalized, will continue to monitor. Nurse note also states the patient is compliant with meds and denies SI/HI, and A/V hallucinations. The patient was seen today, she is headed for breakfast. She says she feels okay. She says she slept pretty good. The patient denies SI/HI or hallucinations of any kind. Reason for continued inpatient treatment: The patient has improved significantly, will monitor over night for any events, and plan discharge tomorrow if social support is intact to ensue safety and continuity of mental health treatment. REVIEW OF SYSTEMS Constitutional: Negative for weight loss ENT: Negative for stridor Respiratory: Negative for cough or hemoptysis All other systems reviewed and are negative MENTAL STATUS EXAMINATION General Appearance and Behavior: Age appropriate, good hygiene, not wearing appropriate clothes, good eye contact, cooperative polite with questioning. Cooperation: Participating/engaged Psychomotor Behavior: Psychomotor agitation Mood: Good Affect and affective range: congruent with stated mood Thought Process: Circumstantial, Illogical, Thought Content: None Speech: Normal tone and pace Suicidal Ideation: Denies SI Homicidal Ideation: Denies HI Impulse Control: Impaired Insight and Judgment: Poor insight and judgment Memory: Limited Attention: Divided attention impaired Orientation: Alert, oriented, Assessment and Plan (1) Bipolar disorder Current Visit: Yes Status: Acute Treatment Plan Patient admitted for inpatient psychiatric evaluation, medication adjustment and close monitoring The patient's behavior, mood, sleep and appetite will be closely monitored. Patient enrolled in individual and group therapeutic sessions and encouraged to attend. Patient provided with a safe and structured environment. Patient's physical health needs will be addressed by the Hospitalist. Hospitalist Consulted Labs including CBC, CMP, Lipid profile and Hemoglobin A1C levels ordered for baseline reference Social Assessment will be completed and the Roll Scale Man will work with patient and family to ensure a suitable and safe disposition Medication adjustment will be made as clinically indicated Start Valproic 125mg po BID yesterday No changes made today Usual Wellness Scientologist/Preservation: - Start Trazodone 50 mg po QHS & 50 mg po QHS PRN between 10 PM & 2 AM for insomnia - Start Melatonin 5 mg po QHS to promote circadian rhythm - Start [place]-3 for brain health, reduce impulsivity, and as adjunctive treatment for mood disorder, continue upon discharge given overall benefits. - Start B1 prophylaxis with 200 mg po for 5 days The patient agreed on the treatment plan, understood the risk, benefit, alternative treatment, potential consequence of no treatment, and gave informed consent. Estimated days: 1 Post hospital care: primary care provider, psychiatric provider Case staffed with Dr. Lazaro Medications and Allergies Allergies Allergy/AdvReac Type Severity Reaction Status Date / Time No Known Allergies Allergy Verified 06/20/18 07:32 Home Medications Medication Instructions Recorded Confirmed Last Taken Type traMADoL [Ultram 50 MG tab] 50 mg PO Q6H PRN #30 tablet 05/29/19 01/16/21 Unknown Rx Quetiapine Fumarate [SEROquel] 400 mg PO BID 30 Days #60 tablet 09/24/19 01/16/21 Unknown Rx Albuterol Sulfate [Proventil Hfa] 6.7 gm IH QID PRN #1 hfa.aer.ad 01/21/20 01/16/21 Unknown Rx Aspirin [Aspirin BABY CHEW TAB] 81 mg PO QDAY #30 tab.chew 01/21/20 01/16/21 Unknown Rx Famotidine [Pepcid] 20 mg PO BID #60 tablet 01/21/20 01/16/21 Unknown Rx lisinopriL [Zestril TAB] 10 mg PO QDAY #30 tablet 01/21/20 01/16/21 Unknown Rx Active Meds: Active Medications Albuterol (Albuterol 2.5 Mg/3 Ml Nebu) 2.5 mg IH Q4HRT PRN PRN Reason: Shortness Of Breath Aspirin (Aspirin 81 Mg Tab Chew) 81 mg PO QDAY [facility] Last Admin: 01/18/21 09:49 Dose: 81 mg Documented by: Famotidine (Famotidine 20 Mg Tab) 20 mg PO BID [facility] Last Admin: 01/18/21 09:53 Dose: 20 mg Documented by: Lisinopril (Lisinopril 10 Mg Tab) 10 mg PO QDAY [facility] Last Admin: 01/18/21 09:49 Dose: 10 mg Documented by: Nicotine (Nicotine 21 Mg/24 Hr Patch) 21 mg TD QDAY [facility] Last Admin: 01/18/21 09:53 Dose: 21 mg Documented by: Quetiapine Fumarate (Quetiapine 200 Mg Tab) 400 mg PO BID [facility] Last Admin: 01/18/21 21:00 Dose: 400 mg Documented by: Tramadol HCl (Tramadol 50 Mg Tab) 50 mg PO Q6H PRN PRN Reason: Pain, Moderate (4-6) Trazodone HCl (Trazodone 50 Mg Tab) 50 mg PO QHS [facility] Last Admin: 01/18/21 22:00 Dose: 50 mg Documented by: Valproic Acid (Valproic Acid 250 Mg/5 Ml Oral Liqd) 125 mg PO BID [facility] Last Admin: 01/18/21 22:00 Dose: 125 mg Documented by: Results - Results Labs/Vitals: Laboratory Last Values WBC 5.7 K/mm3 (4.5-11.0) 01/17/21 05:23 RBC 3.95 M/mm3 (3.65-5.03) 01/17/21 05:23 Hgb 11.5 gm/dl (10.1-14.3) 01/17/21 05:23 Hct 34.5 % (30.3-42.9) 01/17/21 05:23 MCV 87 fl (79-97) 01/17/21 05:23 MCH 29 pg (28-32) 01/17/21 05:23 MCHC 33 % (30-34) 01/17/21 05:23 RDW 14.8 % (13.2-15.2) 01/17/21 05:23 Plt Count 319 K/mm3 (140-440) 01/17/21 05:23 Lymph % (Auto) 42.5 % (13.4-35.0) H 01/17/21 05:23 [place] % (Auto) 11.8 % (0.0-7.3) H 01/17/21 05:23 Eos % (Auto) 2.5 % (0.0-4.3) 01/17/21 05:23 Baso % (Auto) 0.8 % (0.0-1.8) 01/17/21 05:23 Lymph # (Auto) 2.4 K/mm3 (1.2-5.4) 01/17/21 05:23 [place] # (Auto) 0.7 K/mm3 (0.0-0.8) 01/17/21 05:23 Eos # (Auto) 0.1 K/mm3 (0.0-0.4) 01/17/21 05:23 Baso # (Auto) 0.0 K/mm3 (0.0-0.1) 01/17/21 05:23 Seg Neutrophils % 42.4 % (40.0-70.0) 01/17/21 05:23 Seg Neutrophils # 2.4 K/mm3 (1.8-7.7) 01/17/21 05:23 Sodium 137 mmol/L (137-145) 01/17/21 05:23 Potassium 3.7 mmol/L (3.6-5.0) 01/17/21 05:23 Chloride 101.9 mmol/L (98-107) 01/17/21 05:23 Carbon Dioxide 26 mmol/L (22-30) 01/17/21 05:23 Anion Gap 13 mmol/L 01/17/21 05:23 BUN 13 mg/dL (7-17) 01/17/21 05:23 Creatinine 0.9 mg/dL (0.6-1.2) 01/17/21 05:23 Estimated GFR > 60 ml/min 01/17/21 05:23 BUN/Creatinine Ratio 14 % 01/17/21 05:23 Glucose 98 mg/dL (65-100) 01/17/21 05:23 POC Glucose 98 mg/dL (70-105) 01/17/21 06:32 Hemoglobin A1c 5.6 % (4-6) 01/17/21 05:23 Calcium 8.7 mg/dL (8.4-10.2) 01/17/21 05:23 Total Bilirubin < 0.20 mg/dL (0.1-1.2) 01/17/21 05:23 AST 16 units/L (5-40) 01/17/21 05:23 ALT 8 units/L (7-56) 01/17/21 05:23 Alkaline Phosphatase 80 units/L (35-129) 01/17/21 05:23 Total Protein 6.5 g/dL (6.3-8.2) 01/17/21 05:23 Albumin 4.0 g/dL (3.9-5) 01/17/21 05:23 Albumin/Globulin Ratio 1.6 % 01/17/21 05:23 Triglycerides 129 mg/dL (2-149) 01/17/21 05:23 Cholesterol 185 mg/dL (50-199) 01/17/21 05:23 LDL Cholesterol Direct 106 mg/dL (50-130) 01/17/21 05:23 HDL Cholesterol 66 mg/dL (40-59) H 01/17/21 05:23 Cholesterol/HDL Ratio 2.80 % 01/17/21 05:23 TSH 0.669 mlU/mL (0.270-4.200) 01/17/21 05:23 Last Vital Signs Temp 97.9 F 01/19/21 08:01 Pulse 63 01/19/21 08:01 Resp 18 01/19/21 08:01 BP 134/76 01/19/21 08:01 Pulse Ox 100 01/18/21 22:00
[2021-01-19] MEDS: ASPIRIN 81 MG TAB CHEW PO SCH (10:26)
[2021-01-19] MEDS: NICOTINE 21 MG/24 HR PATCH TD SCH (10:26)
[2021-01-19] MEDS: QUEtiapine 200 MG TAB PO SCH ×2 (10:26→21:26)
[2021-01-19] MEDS: VALPROIC ACID 250 MG/5 ML ORAL LIQD PO SCH ×2 (10:26→21:25)
[2021-01-19] MEDS: FAMOTIDINE 20 MG TAB PO SCH ×2 (10:27→21:27)
[2021-01-19] MEDS: LISINOPRIL 10 MG TAB PO SCH (10:27)
[2021-01-19] MEDS: traZODone 50 MG TAB PO SCH (21:26)
--- NOTE | 2021-01-20 08:44 | Discharge Summary ---
Providers - Providers Date of Admission: 01/16/21 23:09 Date of discharge: 01/20/21 Attending physician: JAROD BYRD MD 01/16/21 22:05 Consult to Physician [CONS] Routine Comment: Consulting Provider: ROBBIE JEROME Physician Instructions: Manage existing conditin Reason For Exam: New pt Consultation for H&P Primary care physician: ARCHITECT MANAGER Hospitalization Reason for admission: agitation Admitting Diagnosis: F31.2 - BIPOLAR DISORD, CRNT EPISODE MANIC SEVERE W PSYCH FEATURES Condition: Stable Hospital course: The patient was provided inpatient psychiatric treatment with safe and supportive care, medication adjustment, adverse effect monitoring, medical evaluations, medical treatments, assessment and psycho-education. The patient's mood, cognition, behavior, moral support are improved and stabilized. St the time of discharge, the patient had no endangering behavior and no debilitating adverse effects. The patient agreed on potential consequences of no treatment and gave informed consent. Disposition: - TO HOME OR SELFCARE Time spent for discharge: 38 Allergies/Adverse Reactions: Allergies No Known Allergies Allergy (Verified 06/20/18 07:32) Vital Signs: Last Vital Signs Temp 97.8 F 01/19/21 19:23 Pulse 84 01/19/21 19:23 Resp 16 01/19/21 19:23 BP 125/63 01/19/21 19:23 Pulse Ox 100 01/19/21 19:23 Last Lab: Laboratory Last Values WBC 5.7 K/mm3 (4.5-11.0) 01/17/21 05:23 RBC 3.95 M/mm3 (3.65-5.03) 01/17/21 05:23 Hgb 11.5 gm/dl (10.1-14.3) 01/17/21 05:23 Hct 34.5 % (30.3-42.9) 01/17/21 05:23 MCV 87 fl (79-97) 01/17/21 05:23 MCH 29 pg (28-32) 01/17/21 05:23 MCHC 33 % (30-34) 01/17/21 05:23 RDW 14.8 % (13.2-15.2) 01/17/21 05:23 Plt Count 319 K/mm3 (140-440) 01/17/21 05:23 Lymph % (Auto) 42.5 % (13.4-35.0) H 01/17/21 05:23 [place] % (Auto) 11.8 % (0.0-7.3) H 01/17/21 05:23 Eos % (Auto) 2.5 % (0.0-4.3) 01/17/21 05:23 Baso % (Auto) 0.8 % (0.0-1.8) 01/17/21 05:23 Lymph # (Auto) 2.4 K/mm3 (1.2-5.4) 01/17/21 05:23 [place] # (Auto) 0.7 K/mm3 (0.0-0.8) 01/17/21 05:23 Eos # (Auto) 0.1 K/mm3 (0.0-0.4) 01/17/21 05:23 Baso # (Auto) 0.0 K/mm3 (0.0-0.1) 01/17/21 05:23 Seg Neutrophils % 42.4 % (40.0-70.0) 01/17/21 05:23 Seg Neutrophils # 2.4 K/mm3 (1.8-7.7) 01/17/21 05:23 Sodium 137 mmol/L (137-145) 01/17/21 05:23 Potassium 3.7 mmol/L (3.6-5.0) 01/17/21 05:23 Chloride 101.9 mmol/L (98-107) 01/17/21 05:23 Carbon Dioxide 26 mmol/L (22-30) 01/17/21 05:23 Anion Gap 13 mmol/L 01/17/21 05:23 BUN 13 mg/dL (7-17) 01/17/21 05:23 Creatinine 0.9 mg/dL (0.6-1.2) 01/17/21 05:23 Estimated GFR > 60 ml/min 01/17/21 05:23 BUN/Creatinine Ratio 14 % 01/17/21 05:23 Glucose 98 mg/dL (65-100) 01/17/21 05:23 POC Glucose 98 mg/dL (70-105) 01/17/21 06:32 Hemoglobin A1c 5.6 % (4-6) 01/17/21 05:23 Calcium 8.7 mg/dL (8.4-10.2) 01/17/21 05:23 Total Bilirubin < 0.20 mg/dL (0.1-1.2) 01/17/21 05:23 AST 16 units/L (5-40) 01/17/21 05:23 ALT 8 units/L (7-56) 01/17/21 05:23 Alkaline Phosphatase 80 units/L (35-129) 01/17/21 05:23 Total Protein 6.5 g/dL (6.3-8.2) 01/17/21 05:23 Albumin 4.0 g/dL (3.9-5) 01/17/21 05:23 Albumin/Globulin Ratio 1.6 % 01/17/21 05:23 Triglycerides 129 mg/dL (2-149) 01/17/21 05:23 Cholesterol 185 mg/dL (50-199) 01/17/21 05:23 LDL Cholesterol Direct 106 mg/dL (50-130) 01/17/21 05:23 HDL Cholesterol 66 mg/dL (40-59) H 01/17/21 05:23 Cholesterol/HDL Ratio 2.80 % 01/17/21 05:23 TSH 0.669 mlU/mL (0.270-4.200) 01/17/21 05:23 Core Measure Documentation - Palliative Care Palliative Care/ Comfort Measures: Not Applicable - Core Measures Any of the following diagnoses?: none Exam - Constitutional Vitals: Temp Pulse Resp BP Pulse Ox 97.8 F 84 16 125/63 100 01/19/21 19:23 01/19/21 19:23 01/19/21 19:23 01/19/21 19:23 01/19/21 19:23 General appearance: Present: no acute distress - EENT Eyes: Present: PERRL, EOM intact ENT: hearing intact, clear oral mucosa - Neck Neck: Present: supple, normal ROM - Respiratory Respiratory effort: normal Plan Activity: advance as tolerated Weight Bearing Status: Weight Bear as Tolerated Care Plan Goals: maintain good and stable mental health Plan of Treatment: The patient should be compliant with medications, not to use drugs, and not to drink alcohol. The patient understands that if suicidal ideas, homicidal ideas or any endangering feeling arise, the patient should seek assistance including, but not limited to crisis hotline, and emergency room. Health Concerns: Acute renal failure Assessment: Bipolar Disorder with Psychotic features Follow up with: PRIMARY CARE, [Primary Care Provider] - 7 Days Prescriptions: traZODone [Desyrel] 50 mg PO QHS #30 tablet VALPROIC ACID Liq [DepaKENE Liq] 125 mg PO BID #1 bottle Nicotine [Habitrol] 21 mg TD QDAY #20 patch
--- NOTE | 2021-01-20 08:47 | Event Note ---
Date: 01/20/21 Attempted to speak with the patient's daughter at [phone], concerning progress and discharge plans. Did not get a response.
[2021-01-20] MEDS: NICOTINE 21 MG/24 HR PATCH TD SCH (09:34)
[2021-01-20] MEDS: ASPIRIN 81 MG TAB CHEW PO SCH (09:34)
[2021-01-20] MEDS: VALPROIC ACID 250 MG/5 ML ORAL LIQD PO SCH ×2 (09:34→21:31)
[2021-01-20] MEDS: QUEtiapine 200 MG TAB PO SCH ×2 (09:34→21:33)
[2021-01-20] MEDS: FAMOTIDINE 20 MG TAB PO SCH ×2 (09:35→21:33)
[2021-01-20] MEDS: LISINOPRIL 10 MG TAB PO SCH (09:35)
--- NOTE | 2021-01-20 09:51 | Consultation ---
History of Present Illness - Reason for Consult Consult date: 01/21/21 Medical consult Requesting physician: JAROD BYRD - History of Present Illness 70-year-old female patient with significant past medical history of hypertension, coronary artery disease, GERD bipolar status post appendectomy Was admitted to [facility] from the personal retirement with aggressive behavior cursing at the residents , walked out of the personal retirement By herself, refusing medications, patient has intermittent explosive behavior with violence aggressive and cursing. When I examined the patient patient was calm and composed, no agitation or aggression Patient denies suicidal thoughts or suicidal ideation Denies nausea vomiting abdominal pain Denies headache dizziness Denies depression, suicidal thoughts or ideation Past History Past Medical History: hypertension, hyperlipidemia, other (Bipolar disorder) Past Surgical History: No surgical history Social history: smoking. denies: alcohol abuse, prescription drug abuse, IV drug use Family history: no significant family history Medications and Allergies Allergies Allergy/AdvReac Type Severity Reaction Status Date / Time No Known Allergies Allergy Verified 06/20/18 07:32 Home Medications Medication Instructions Recorded Confirmed Last Taken Type traMADoL [Ultram 50 MG tab] 50 mg PO Q6H PRN #30 tablet 05/29/19 01/16/21 Unknown Rx Albuterol Sulfate [Proventil Hfa] 6.7 gm IH QID PRN #1 hfa.aer.ad 01/21/20 01/16/21 Unknown Rx Aspirin [Aspirin BABY CHEW TAB] 81 mg PO QDAY #30 tab.chew 01/21/20 01/16/21 Unknown Rx Famotidine [Pepcid] 20 mg PO BID #60 tablet 01/21/20 01/16/21 Unknown Rx lisinopriL [Zestril TAB] 10 mg PO QDAY #30 tablet 01/21/20 01/16/21 Unknown Rx Nicotine [Habitrol] 21 mg TD QDAY #20 patch 01/20/21 Unknown Rx VALPROIC ACID Liq [DepaKENE Liq] 125 mg PO BID #1 bottle 01/20/21 Unknown Rx traZODone [Desyrel] 50 mg PO QHS #30 tablet 01/20/21 Unknown Rx Quetiapine Fumarate [SEROquel] 400 mg PO BID 30 Days #60 tablet 01/22/21 Unknown Rx Active Meds: Active Medications Albuterol (Albuterol 2.5 Mg/3 Ml Nebu) 2.5 mg IH Q4HRT PRN PRN Reason: Shortness Of Breath Aspirin (Aspirin 81 Mg Tab Chew) 81 mg PO QDAY [facility] Last Admin: 01/20/21 09:34 Dose: 81 mg Documented by: Famotidine (Famotidine 20 Mg Tab) 20 mg PO BID [facility] Last Admin: 01/20/21 09:35 Dose: 20 mg Documented by: Lisinopril (Lisinopril 10 Mg Tab) 10 mg PO QDAY [facility] Last Admin: 01/20/21 09:35 Dose: 10 mg Documented by: Nicotine (Nicotine 21 Mg/24 Hr Patch) 21 mg TD QDAY [facility] Last Admin: 01/20/21 09:34 Dose: 21 mg Documented by: Quetiapine Fumarate (Quetiapine 200 Mg Tab) 400 mg PO BID [facility] Last Admin: 01/20/21 09:34 Dose: 400 mg Documented by: Tramadol HCl (Tramadol 50 Mg Tab) 50 mg PO Q6H PRN PRN Reason: Pain, Moderate (4-6) Trazodone HCl (Trazodone 50 Mg Tab) 50 mg PO QHS [facility] Last Admin: 01/19/21 21:26 Dose: 50 mg Documented by: Valproic Acid (Valproic Acid 250 Mg/5 Ml Oral Liqd) 125 mg PO BID [facility] Last Admin: 01/20/21 09:34 Dose: 125 mg Documented by: Review of Systems Constitutional: weakness, no weight loss, no weight gain, no fever, no chills Ears, nose, mouth and throat: no nasal congestion, no nasal discharge Cardiovascular: no chest pain, no orthopnea, no palpitations Respiratory: no cough, no shortness of breath Gastrointestinal: no abdominal pain, no nausea, no vomiting Genitourinary Female: no dyspareunia, no dysuria Menstruation: no currently menstrual Musculoskeletal: no myalgias, no arthritis Integumentary: no rash, no lesions Neurological: weakness, numbness Psychiatric: other (Acute psychosis, bipolar disorder), no depression Endocrine: no cold intolerance, no heat intolerance Hematologic/Lymphatic: no easy bruising, no easy bleeding Allergic/Immunologic: no urticaria, no allergic rhinitis Exam - Constitutional Vitals: Temp Pulse Resp BP Pulse Ox 98.1 F 75 16 118/62 100 01/20/21 08:54 01/20/21 09:35 01/20/21 08:54 01/20/21 09:35 01/20/21 08:54 General appearance: Present: no acute distress, well-nourished - EENT Eyes: Present: PERRL, EOM intact - Neck Neck: Present: supple, normal ROM - Respiratory Respiratory effort: normal Respiratory: bilateral: diminished, negative: rales, rhonchi, wheezing - Cardiovascular Rhythm: regular Heart Sounds: Present: S1 & S2 - Extremities Extremities: no ischemia, No edema - Abdominal General gastrointestinal: Present: soft, non-tender, non-distended, normal bowel sounds - Integumentary Integumentary: Present: clear, warm - Musculoskeletal Musculoskeletal: strength equal bilaterally - Psychiatric Psychiatric: appropriate mood/affect, cooperative - Neurologic Neurologic: moves all extremities Results - Labs CBC & Chem 7: 01/17/21 05:23 01/17/21 05:23 Assessment and Plan --Hypertension; Resume home antihypertensive medications Closely monitor blood pressures And adjust as needed --Bipolar disorder; Management per psych --Ongoing tobaccouse Smoking cessation counseling Nicotine patch as needed --GERD; Continue Pepcid, supportive care --DVT prophylaxis; SCDs while resting Increase ambulation as tolerated Closely monitor patient and adjust management as needed Patient will follow the patient along with you as needed Patient needs follow-up with primary care physician upon discharge For her medical needs
[2021-01-20] MEDS: traZODone 50 MG TAB PO SCH (21:33)
--- NOTE | 2021-01-21 08:35 | Event Note ---
Date: 01/20/21 Spoke with the patient's daughter today. She does not want the patient to be discharged because she says they can no longer take care of her and the patient's is constantly getting kicked out of group homes because of her behavior. Informed the daughter that the patient no longer meets inpatient criteria and has been calm, cooperative and compliant with treatment regiment during her stay. Also had community program assistant on the line who explained this to the daughter. The patient is to discharge tomorrow after the social media coordinator gives her resources for memory care units and SNFs.
--- NOTE | 2021-01-21 08:38 | Discharge Summary ---
Providers - Providers Date of Admission: 01/16/21 23:09 Date of discharge: 01/21/21 Attending physician: JAROD BYRD MD 01/16/21 22:05 Consult to Physician [CONS] Routine Comment: Consulting Provider: ROBBIE JEROME Physician Instructions: Manage existing conditin Reason For Exam: New pt Consultation for H&P Primary care physician: SENIOR BIOSTATISTICIAN Hospitalization Reason for admission: agitation Admitting Diagnosis: F31.9 - BIPOLAR DISORDER, UNSPECIFIED Hospital course: The patient was provided inpatient psychiatric treatment with safe and supportive care, medication adjustment, adverse effect monitoring, medical evaluations, medical treatments, assessment and psycho-education. The patient's mood, cognition, behavior, moral support are improved and stabilized. St the time of discharge, the patient had no endangering behavior and no debilitating adverse effects. The patient agreed on potential consequences of no treatment and gave informed consent. Disposition: DC- TO HOME OR SELFCARE Time spent for discharge: 38 Allergies/Adverse Reactions: Allergies No Known Allergies Allergy (Verified 06/20/18 07:32) Vital Signs: Last Vital Signs Temp 98.6 F 01/20/21 19:28 Pulse 75 01/20/21 19:28 Resp 19 01/20/21 19:28 BP 124/47 01/20/21 19:28 Pulse Ox 99 01/20/21 19:28 Last Lab: Laboratory Last Values WBC 5.7 K/mm3 (4.5-11.0) 01/17/21 05:23 RBC 3.95 M/mm3 (3.65-5.03) 01/17/21 05:23 Hgb 11.5 gm/dl (10.1-14.3) 01/17/21 05:23 Hct 34.5 % (30.3-42.9) 01/17/21 05:23 MCV 87 fl (79-97) 01/17/21 05:23 MCH 29 pg (28-32) 01/17/21 05:23 MCHC 33 % (30-34) 01/17/21 05:23 RDW 14.8 % (13.2-15.2) 01/17/21 05:23 Plt Count 319 K/mm3 (140-440) 01/17/21 05:23 Lymph % (Auto) 42.5 % (13.4-35.0) H 01/17/21 05:23 [place] % (Auto) 11.8 % (0.0-7.3) H 01/17/21 05:23 Eos % (Auto) 2.5 % (0.0-4.3) 01/17/21 05:23 Baso % (Auto) 0.8 % (0.0-1.8) 01/17/21 05:23 Lymph # (Auto) 2.4 K/mm3 (1.2-5.4) 01/17/21 05:23 [place] # (Auto) 0.7 K/mm3 (0.0-0.8) 01/17/21 05:23 Eos # (Auto) 0.1 K/mm3 (0.0-0.4) 01/17/21 05:23 Baso # (Auto) 0.0 K/mm3 (0.0-0.1) 01/17/21 05:23 Seg Neutrophils % 42.4 % (40.0-70.0) 01/17/21 05:23 Seg Neutrophils # 2.4 K/mm3 (1.8-7.7) 01/17/21 05:23 Sodium 137 mmol/L (137-145) 01/17/21 05:23 Potassium 3.7 mmol/L (3.6-5.0) 01/17/21 05:23 Chloride 101.9 mmol/L (98-107) 01/17/21 05:23 Carbon Dioxide 26 mmol/L (22-30) 01/17/21 05:23 Anion Gap 13 mmol/L 01/17/21 05:23 BUN 13 mg/dL (7-17) 01/17/21 05:23 Creatinine 0.9 mg/dL (0.6-1.2) 01/17/21 05:23 Estimated GFR > 60 ml/min 01/17/21 05:23 BUN/Creatinine Ratio 14 % 01/17/21 05:23 Glucose 98 mg/dL (65-100) 01/17/21 05:23 POC Glucose 98 mg/dL (70-105) 01/17/21 06:32 Hemoglobin A1c 5.6 % (4-6) 01/17/21 05:23 Calcium 8.7 mg/dL (8.4-10.2) 01/17/21 05:23 Total Bilirubin < 0.20 mg/dL (0.1-1.2) 01/17/21 05:23 AST 16 units/L (5-40) 01/17/21 05:23 ALT 8 units/L (7-56) 01/17/21 05:23 Alkaline Phosphatase 80 units/L (35-129) 01/17/21 05:23 Total Protein 6.5 g/dL (6.3-8.2) 01/17/21 05:23 Albumin 4.0 g/dL (3.9-5) 01/17/21 05:23 Albumin/Globulin Ratio 1.6 % 01/17/21 05:23 Triglycerides 129 mg/dL (2-149) 01/17/21 05:23 Cholesterol 185 mg/dL (50-199) 01/17/21 05:23 LDL Cholesterol Direct 106 mg/dL (50-130) 01/17/21 05:23 HDL Cholesterol 66 mg/dL (40-59) H 01/17/21 05:23 Cholesterol/HDL Ratio 2.80 % 01/17/21 05:23 TSH 0.669 mlU/mL (0.270-4.200) 01/17/21 05:23 Core Measure Documentation - Palliative Care Palliative Care/ Comfort Measures: Not Applicable - Core Measures Any of the following diagnoses?: none Exam - Constitutional Vitals: Temp Pulse Resp BP Pulse Ox 98.6 F 75 19 124/47 99 01/20/21 19:28 01/20/21 19:28 01/20/21 19:28 01/20/21 19:28 01/20/21 19:28 General appearance: Present: no acute distress - EENT Eyes: Present: EOM intact ENT: hearing intact, clear oral mucosa - Neck Neck: Present: supple, normal ROM - Respiratory Respiratory effort: normal Plan Activity: advance as tolerated Weight Bearing Status: Weight Bear as Tolerated Care Plan Goals: maintain good and stable mental health Plan of Treatment: The patient should be compliant with medications, not to use drugs, and not to drink alcohol. The patient understands that if suicidal ideas, homicidal ideas or any endangering feeling arise, the patient should seek assistance including, but not limited to crisis hotline, and emergency room. Health Concerns: Acute renal failure Assessment: Bipolar Disorder with Psychotic features Follow up with: PRIMARY CARE, [Primary Care Provider] - 7 Days Prescriptions: traZODone [Desyrel] 50 mg PO QHS #30 tablet VALPROIC ACID Liq [DepaKENE Liq] 125 mg PO BID #1 bottle Nicotine [Habitrol] 21 mg TD QDAY #20 patch
[2021-01-21] MEDS: FAMOTIDINE 20 MG TAB PO SCH ×2 (09:29→21:22)
[2021-01-21] MEDS: VALPROIC ACID 250 MG/5 ML ORAL LIQD PO SCH ×2 (09:30→21:22)
[2021-01-21] MEDS: ASPIRIN 81 MG TAB CHEW PO SCH (09:30)
[2021-01-21] MEDS: NICOTINE 21 MG/24 HR PATCH TD SCH (09:30)
[2021-01-21] MEDS: QUEtiapine 200 MG TAB PO SCH ×2 (09:31→21:22)
[2021-01-21] MEDS: LISINOPRIL 10 MG TAB PO SCH (09:31)
--- NOTE | 2021-01-21 16:59 | XRay Report ---
CHEST 1 VIEW INDICATION: Cough COMPARISON: 01/21/2020 FINDINGS: SUPPORT DEVICES: None. HEART / MEDIASTINUM: No significant abnormality. LUNGS / PLEURA: No significant pulmonary or pleural abnormality. No pneumothorax. ADDITIONAL FINDINGS: IMPRESSION: 1. No acute cardiopulmonary disease Signer Name: Bebo Joshua MD Signed: 01/21/2021 4:55 PM Workstation Name: [id number]
[2021-01-21] MEDS: traZODone 50 MG TAB PO SCH (21:22)
--- NOTE | 2021-01-22 08:43 | Discharge Summary ---
Providers - Providers Date of Admission: 01/16/21 23:09 Date of discharge: 01/22/21 Attending physician: JAROD BYRD MD 01/16/21 22:05 Consult to Physician [CONS] Routine Comment: Consulting Provider: ROBBIE JEROME Physician Instructions: Manage existing conditin Reason For Exam: New pt Consultation for H&P Primary care physician: HEARING AID ASSEMBLY SUPERVISOR Hospitalization Reason for admission: agitation Admitting Diagnosis: F31.9 - BIPOLAR DISORDER, UNSPECIFIED Hospital course: The patient was provided inpatient psychiatric treatment with safe and supportive care, medication adjustment, adverse effect monitoring, medical evaluations, medical treatments, assessment and psycho-education. The patient's mood, cognition, behavior, moral support are improved and stabilized. St the time of discharge, the patient had no endangering behavior and no debilitating adverse effects. The patient agreed on potential consequences of no treatment and gave informed consent. Disposition: - TO HOME OR SELFCARE Time spent for discharge: 38 Allergies/Adverse Reactions: Allergies No Known Allergies Allergy (Verified 06/20/18 07:32) Vital Signs: Last Vital Signs Temp 98.7 F 01/21/21 19:41 Pulse 72 01/21/21 19:41 Resp 16 01/21/21 19:41 BP 95/73 01/21/21 19:41 Pulse Ox 99 01/21/21 19:41 Last Lab: Laboratory Last Values WBC 5.7 K/mm3 (4.5-11.0) 01/17/21 05:23 RBC 3.95 M/mm3 (3.65-5.03) 01/17/21 05:23 Hgb 11.5 gm/dl (10.1-14.3) 01/17/21 05:23 Hct 34.5 % (30.3-42.9) 01/17/21 05:23 MCV 87 fl (79-97) 01/17/21 05:23 MCH 29 pg (28-32) 01/17/21 05:23 MCHC 33 % (30-34) 01/17/21 05:23 RDW 14.8 % (13.2-15.2) 01/17/21 05:23 Plt Count 319 K/mm3 (140-440) 01/17/21 05:23 Lymph % (Auto) 42.5 % (13.4-35.0) H 01/17/21 05:23 [place] % (Auto) 11.8 % (0.0-7.3) H 01/17/21 05:23 Eos % (Auto) 2.5 % (0.0-4.3) 01/17/21 05:23 Baso % (Auto) 0.8 % (0.0-1.8) 01/17/21 05:23 Lymph # (Auto) 2.4 K/mm3 (1.2-5.4) 01/17/21 05:23 [place] # (Auto) 0.7 K/mm3 (0.0-0.8) 01/17/21 05:23 Eos # (Auto) 0.1 K/mm3 (0.0-0.4) 01/17/21 05:23 Baso # (Auto) 0.0 K/mm3 (0.0-0.1) 01/17/21 05:23 Seg Neutrophils % 42.4 % (40.0-70.0) 01/17/21 05:23 Seg Neutrophils # 2.4 K/mm3 (1.8-7.7) 01/17/21 05:23 Sodium 137 mmol/L (137-145) 01/17/21 05:23 Potassium 3.7 mmol/L (3.6-5.0) 01/17/21 05:23 Chloride 101.9 mmol/L (98-107) 01/17/21 05:23 Carbon Dioxide 26 mmol/L (22-30) 01/17/21 05:23 Anion Gap 13 mmol/L 01/17/21 05:23 BUN 13 mg/dL (7-17) 01/17/21 05:23 Creatinine 0.9 mg/dL (0.6-1.2) 01/17/21 05:23 Estimated GFR > 60 ml/min 01/17/21 05:23 BUN/Creatinine Ratio 14 % 01/17/21 05:23 Glucose 98 mg/dL (65-100) 01/17/21 05:23 POC Glucose 98 mg/dL (70-105) 01/17/21 06:32 Hemoglobin A1c 5.6 % (4-6) 01/17/21 05:23 Calcium 8.7 mg/dL (8.4-10.2) 01/17/21 05:23 Total Bilirubin < 0.20 mg/dL (0.1-1.2) 01/17/21 05:23 AST 16 units/L (5-40) 01/17/21 05:23 ALT 8 units/L (7-56) 01/17/21 05:23 Alkaline Phosphatase 80 units/L (35-129) 01/17/21 05:23 Total Protein 6.5 g/dL (6.3-8.2) 01/17/21 05:23 Albumin 4.0 g/dL (3.9-5) 01/17/21 05:23 Albumin/Globulin Ratio 1.6 % 01/17/21 05:23 Triglycerides 129 mg/dL (2-149) 01/17/21 05:23 Cholesterol 185 mg/dL (50-199) 01/17/21 05:23 LDL Cholesterol Direct 106 mg/dL (50-130) 01/17/21 05:23 HDL Cholesterol 66 mg/dL (40-59) H 01/17/21 05:23 Cholesterol/HDL Ratio 2.80 % 01/17/21 05:23 TSH 0.669 mlU/mL (0.270-4.200) 01/17/21 05:23 Core Measure Documentation - Palliative Care Palliative Care/ Comfort Measures: Not Applicable - Core Measures Any of the following diagnoses?: none Exam - Constitutional Vitals: Temp Pulse Resp BP Pulse Ox 98.7 F 72 16 95/73 99 01/21/21 19:41 01/21/21 19:41 01/21/21 19:41 01/21/21 19:41 01/21/21 19:41 General appearance: Present: no acute distress - EENT Eyes: Present: PERRL, EOM intact ENT: hearing intact, clear oral mucosa - Neck Neck: Present: supple, normal ROM - Respiratory Respiratory effort: normal Plan Activity: advance as tolerated Weight Bearing Status: Weight Bear as Tolerated Care Plan Goals: maintain good and stable mental health Plan of Treatment: The patient should be compliant with medications, not to use drugs, and not to drink alcohol. The patient understands that if suicidal ideas, homicidal ideas or any endangering feeling arise, the patient should seek assistance including, but not limited to crisis hotline, and emergency room. Health Concerns: Acute renal failure Assessment: Bipolar Disorder with Psychotic features Follow up with: PRIMARY CAREMD [Primary Care Provider] - 7 Days Prescriptions: traZODone [Desyrel] 50 mg PO QHS #30 tablet VALPROIC ACID Liq [DepaKENE Liq] 125 mg PO BID #1 bottle Nicotine [Habitrol] 21 mg TD QDAY #20 patch Quetiapine Fumarate [SEROquel] 400 mg PO BID 30 Days #60 tablet
--- NOTE | 2021-01-22 08:45 | Progress Note ---
Subjective Date of service: 01/21/21 Principal diagnosis: Bipolar Subjective Comment: The patient was seen, she is planned for discharge today but having transportation issues. Discharge was cancelled and placed for tomorrow. Reason for continued inpatient treatment: The patient is at baseline. Her discharge was cancelled due to transportation issues. REVIEW OF SYSTEMS Constitutional: Negative for weight loss ENT: Negative for stridor Respiratory: Negative for cough or hemoptysis All other systems reviewed and are negative MENTAL STATUS EXAMINATION General Appearance and Behavior: Age appropriate, good hygiene, not wearing appropriate clothes, good eye contact, cooperative polite with questioning. Cooperation: Participating/engaged Psychomotor Behavior: Psychomotor agitation Mood: Good Affect and affective range: congruent with stated mood Thought Process: Circumstantial, Illogical, Thought Content: None Speech: Normal tone and pace Suicidal Ideation: Denies SI Homicidal Ideation: Denies HI Impulse Control: Impaired Insight and Judgment: Poor insight and judgment Memory: Limited Attention: Divided attention impaired Orientation: Alert, oriented, Assessment and Plan (1) Bipolar disorder Current Visit: Yes Status: Acute Treatment Plan Patient admitted for inpatient psychiatric evaluation, medication adjustment and close monitoring The patient's behavior, mood, sleep and appetite will be closely monitored. Patient enrolled in individual and group therapeutic sessions and encouraged to attend. Patient provided with a safe and structured environment. Patient's physical health needs will be addressed by the Hospitalist. Hospitalist Consulted Labs including CBC, CMP, Lipid profile and Hemoglobin A1C levels ordered for baseline reference Social Assessment will be completed and the [employer] Supervisor will work with patient and family to ensure a suitable and safe disposition Medication adjustment will be made as clinically indicated No changes made today Usual Wellness Hindu/Preservation: - Start Trazodone 50 mg po QHS & 50 mg po QHS PRN between 10 PM & 2 AM for insomnia - Start Melatonin 5 mg po QHS to promote circadian rhythm - Start Lockhart-3 for brain health, reduce impulsivity, and as adjunctive treatment for mood disorder, continue upon discharge given overall benefits. - Start B1 prophylaxis with 200 mg po for 5 days The patient agreed on the treatment plan, understood the risk, benefit, alternative treatment, potential consequence of no treatment, and gave informed consent. Estimated days: 1 Post hospital care: primary care provider, psychiatric provider Case staffed with Dr. Lazaro Medications and Allergies Allergies Allergy/AdvReac Type Severity Reaction Status Date / Time No Known Allergies Allergy Verified 06/20/18 07:32 Home Medications Medication Instructions Recorded Confirmed Last Taken Type traMADoL [Ultram 50 MG tab] 50 mg PO Q6H PRN #30 tablet 05/29/19 01/16/21 Unknown Rx Albuterol Sulfate [Proventil Hfa] 6.7 gm IH QID PRN #1 hfa.aer.ad 01/21/20 01/16/21 Unknown Rx Aspirin [Aspirin BABY CHEW TAB] 81 mg PO QDAY #30 tab.chew 01/21/20 01/16/21 Unknown Rx Famotidine [Pepcid] 20 mg PO BID #60 tablet 01/21/20 01/16/21 Unknown Rx lisinopriL [Zestril TAB] 10 mg PO QDAY #30 tablet 01/21/20 01/16/21 Unknown Rx Nicotine [Habitrol] 21 mg TD QDAY #20 patch 01/20/21 Unknown Rx VALPROIC ACID Liq [DepaKENE Liq] 125 mg PO BID #1 bottle 01/20/21 Unknown Rx traZODone [Desyrel] 50 mg PO QHS #30 tablet 01/20/21 Unknown Rx Quetiapine Fumarate [SEROquel] 400 mg PO BID 30 Days #60 tablet 01/22/21 U nknown Rx Active Meds: Active Medications Albuterol (Albuterol 2.5 Mg/3 Ml Nebu) 2.5 mg IH Q4HRT PRN PRN Reason: Shortness Of Breath Aspirin (Aspirin 81 Mg Tab Chew) 81 mg PO QDAY [facility] Last Admin: 01/21/21 09:30 Dose: 81 mg Documented by: Famotidine (Famotidine 20 Mg Tab) 20 mg PO BID [facility] Last Admin: 01/21/21 21:22 Dose: 20 mg Documented by: Lisinopril (Lisinopril 10 Mg Tab) 10 mg PO QDAY [facility] Last Admin: 01/21/21 09:31 Dose: 10 mg Documented by: Nicotine (Nicotine 21 Mg/24 Hr Patch) 21 mg TD QDAY [facility] Last Admin: 01/21/21 09:30 Dose: 21 mg Documented by: Quetiapine Fumarate (Quetiapine 200 Mg Tab) 400 mg PO BID [facility] Last Admin: 01/21/21 21:22 Dose: 400 mg Documented by: Tramadol HCl (Tramadol 50 Mg Tab) 50 mg PO Q6H PRN PRN Reason: Pain, Moderate (4-6) Trazodone HCl (Trazodone 50 Mg Tab) 50 mg PO QHS [facility] Last Admin: 01/21/21 21:22 Dose: 50 mg Documented by: Valproic Acid (Valproic Acid 250 Mg/5 Ml Oral Liqd) 125 mg PO BID [facility] Last Admin: 01/21/21 21:22 Dose: 125 mg Documented by: Results - Results Labs/Vitals: Laboratory Last Values WBC 5.7 K/mm3 (4.5-11.0) 01/17/21 05:23 RBC 3.95 M/mm3 (3.65-5.03) 01/17/21 05:23 Hgb 11.5 gm/dl (10.1-14.3) 01/17/21 05:23 Hct 34.5 % (30.3-42.9) 01/17/21 05:23 MCV 87 fl (79-97) 01/17/21 05:23 MCH 29 pg (28-32) 01/17/21 05:23 MCHC 33 % (30-34) 01/17/21 05:23 RDW 14.8 % (13.2-15.2) 01/17/21 05:23 Plt Count 319 K/mm3 (140-440) 01/17/21 05:23 Lymph % (Auto) 42.5 % (13.4-35.0) H 01/17/21 05:23 [place] % (Auto) 11.8 % (0.0-7.3) H 01/17/21 05:23 Eos % (Auto) 2.5 % (0.0-4.3) 01/17/21 05:23 Baso % (Auto) 0.8 % (0.0-1.8) 01/17/21 05:23 Lymph # (Auto) 2.4 K/mm3 (1.2-5.4) 01/17/21 05:23 [place] # (Auto) 0.7 K/mm3 (0.0-0.8) 01/17/21 05:23 Eos # (Auto) 0.1 K/mm3 (0.0-0.4) 01/17/21 05:23 Baso # (Auto) 0.0 K/mm3 (0.0-0.1) 01/17/21 05:23 Seg Neutrophils % 42.4 % (40.0-70.0) 01/17/21 05:23 Seg Neutrophils # 2.4 K/mm3 (1.8-7.7) 01/17/21 05:23 Sodium 137 mmol/L (137-145) 01/17/21 05:23 Potassium 3.7 mmol/L (3.6-5.0) 01/17/21 05:23 Chloride 101.9 mmol/L (98-107) 01/17/21 05:23 Carbon Dioxide 26 mmol/L (22-30) 01/17/21 05:23 Anion Gap 13 mmol/L 01/17/21 05:23 BUN 13 mg/dL (7-17) 01/17/21 05:23 Creatinine 0.9 mg/dL (0.6-1.2) 01/17/21 05:23 Estimated GFR > 60 ml/min 01/17/21 05:23 BUN/Creatinine Ratio 14 % 01/17/21 05:23 Glucose 98 mg/dL (65-100) 01/17/21 05:23 POC Glucose 98 mg/dL (70-105) 01/17/21 06:32 Hemoglobin A1c 5.6 % (4-6) 01/17/21 05:23 Calcium 8.7 mg/dL (8.4-10.2) 01/17/21 05:23 Total Bilirubin < 0.20 mg/dL (0.1-1.2) 01/17/21 05:23 AST 16 units/L (5-40) 01/17/21 05:23 ALT 8 units/L (7-56) 01/17/21 05:23 Alkaline Phosphatase 80 units/L (35-129) 01/17/21 05:23 Total Protein 6.5 g/dL (6.3-8.2) 01/17/21 05:23 Albumin 4.0 g/dL (3.9-5) 01/17/21 05:23 Albumin/Globulin Ratio 1.6 % 01/17/21 05:23 Triglycerides 129 mg/dL (2-149) 01/17/21 05:23 Cholesterol 185 mg/dL (50-199) 01/17/21 05:23 LDL Cholesterol Direct 106 mg/dL (50-130) 01/17/21 05:23 HDL Cholesterol 66 mg/dL (40-59) H 01/17/21 05:23 Cholesterol/HDL Ratio 2.80 % 01/17/21 05:23 TSH 0.669 mlU/mL (0.270-4.200) 01/17/21 05:23 Last Vital Signs Temp 98.7 F 01/21/21 19:41 Pulse 72 01/21/21 19:41 Resp 16 01/21/21 19:41 BP 95/73 01/21/21 19:41 Pulse Ox 99 01/21/21 19:41
--- NOTE | 2021-01-22 08:46 | Event Note ---
Date: 01/21/21 discharge canceled due to transportation issues
[2021-01-22 09:05] VITALS: BP 128/73
== END 2021-01-22 09:10 | disposition home or self-care (01) | DRG 885 ==
LOC: 3A 15:13 → UNDOADMIN 15:13 → 5A 23:09
PROVIDERS: ADMIT Psychiatry & Neurology Psychiatry; ATTEND Psychiatry & Neurology Psychiatry
DX: F31.2 Bipolar disorder, current episode manic severe with psychotic features (principal); I10 Essential (primary) hypertension; K21.9 Gastro-esophageal reflux disease without esophagitis; F17.200 Nicotine dependence, unspecified, uncomplicated; E11.9 Type 2 diabetes mellitus without complications; I25.10 Atherosclerotic heart disease of native coronary artery without angina pectoris; Z90.49 Acquired absence of other specified parts of digestive tract; Z79.899 Other long term (current) drug therapy; Z71.6 Tobacco abuse counseling
CPT/HCPCS: 36415; 71045; 80048; 80053; 80061; 80076; 80307; 80320; 81001; 82962; 83036; 84443; 85025; G0378; G0480; U0003

== ENCOUNTER 2022-01-14 14:34 | Emergency (ER) | payer MEDICARE | END 2022-01-15 10:41 | disposition left against medical advice (07) | LOC: ED 14:34 | DX: Z76.0 Encounter for issue of repeat prescription (principal); Z53.21 Procedure and treatment not carried out due to patient leaving prior to being seen by health care provider ==